=== PATIENT | male | born 1935 | race Caucasian/White ===

== ENCOUNTER 2024-05-10 11:25 | Emergency (ER) | payer OTHER, SELFPAY ==
[2024-05-10 11:29] VITALS: BP 135/78
--- NOTE | 2024-05-10 12:03 | ED.GENMED ---
History of Present Illness
<Trudy Tipton PA-C - Last Filed: 05/10/24 22:05>
General
Chief Complaint: Nose Bleed
Source: patient
Exam Limitations: none
Time Seen by Provider: 05/10/24 12:02
Nursing documentation reviewed up to this point in time: agreed with
History of Present Illness
History of Present Illness:
88-year-old male with past medical history of metabolic syndrome, moderate aortic stenosis presents emergency department today with concerns of a persistent nosebleed. Patient states that he has a history of nosebleeds. He has not take a blood
thinner. Patient states that last night, he started to have nose bleeding from his left nare but then it became bilateral. Patient reports eventually stopped and then he went to sleep but then this morning he instilled some saline spray into the
nostril and started bleeding again. Patient states that a large clot passed from his nose. Patient also notes dizziness which started last night. He states that he has chronic episodes of dizziness with aortic stenosis he notes that the dizziness
he has now is different. He notes that when he stands up and walks around, he will get a sensation of vertigo. He also has left-sided posterior neck pain. He has not taken any blood thinners. He denies any syncopal episodes.
Past History
<Trudy Tipton PA-C - Last Filed: 05/10/24 22:05>
Past History
ED Past Medical History: Other (Macular degeneration)
ED Past Surgical History: Orthopedic
Social History
Tobacco: Non-smoker
Alcohol: None
Drug: None
Review of Systems
<Trudy Tipton PA-C - Last Filed: 05/10/24 22:05>
Review of Systems
All Other Systems: ROS reviewed and negative except as documented in HPI and ROS
Phy Exam
<Trudy Tipton PA-C - Last Filed: 05/10/24 22:05>
Physical Exam
Physical Exam:
General: Patient is well appearing and in no acute distress; non-toxic
Skin: Warm and dry, no rashes or lesions
Head: Normocephalic, atraumatic
Eyes: Sclera non-icteric. EOMs intact.
Nose: No active bleeding or abrasion within either nare. No septal hematoma.
Cardiac: Regular rate and rhythm, no murmurs
Peripheral Vascular: No lower extremity swelling or edema
Pulm: Normal respiratory effort, no wheezes, rales, or rhonchi
Neuro: CN II-XII intact, no focal neurologic deficits.
Psychiatric: Appropriate mood and affect.
Course
Ainsleylt;Trudy Tipton PA-C - Last Filed: 05/10/24 22:05>
Orders/Labs/Results
Orders:
Orders
05/10/24 12:44
Electrocardiogram (*1) Urgent
Reason for Study: Chest Pain
EKG- Treatment ONCE
05/10/24 12:58
CT Head & Neck Angio W/wo IV Urgent
Reason For Exam: left neck pain, vertigo, dysmetria
05/10/24 13:05
Complete Blood Count/With Diff Urgent
Comprehensive Metabolic Panel Urgent
05/10/24 15:26
Oxymetazoline HCl [Afrin Nasal [place]] See Dose Instructions NASAL BID ONE
05/10/24 16:15
Electrocardiogram (*1) Urgent
Reason for Study: Chest Pain
EKG- Treatment ONCE
Abnormal Lab Results
05/10/24
13:05
RBC 3.94 L 10^6/uL
(4.70-6.10)
Hct 37.4 L %
(39.0-52.0)
MCV 94.9 H fL
(80.0-94.0)
MCH 33.2 H pg
(27.0-31.0)
Absolute Lymphs (auto) 1.1 L 10^3/uL
(1.2-3.4)
Lymphocytes % 17.8 L %
(20.5-51.1)
Glucose 198 H mg/dl
(70-99)
05/10/24 13:05
05/10/24 13:05
Vital Signs
Initial and Last Documented VS:
Initial Vital Signs
Temp Pulse Resp BP Pulse Ox
98.1 F 69 16 135/78 98
05/10/24 11:29 05/10/24 11:29 05/10/24 11:29 05/10/24 11:29 05/10/24 11:29
Last Documented Vital Signs
Temp Pulse Resp BP Pulse Ox
98.1 F 79 20 121/62 99
05/10/24 11:29 05/10/24 17:40 05/10/24 17:40 05/10/24 17:40 05/10/24 17:40
<Marcel Lenz, DO - Last Filed: 05/10/24 14:21>
Orders/Labs/Results
Orders:
Orders
05/10/24 12:44
Electrocardiogram (*1) Urgent
Reason for Study: Chest Pain
EKG- Treatment ONCE
05/10/24 12:58
CT Head & Neck Angio W/wo IV Urgent
Reason For Exam: left neck pain, vertigo, dysmetria
05/10/24 13:05
Complete Blood Count/With Diff Urgent
Comprehensive Metabolic Panel Urgent
05/10/24 15:26
Oxymetazoline HCl [Afrin Nasal [place]] See Dose Instructions NASAL BID ONE
05/10/24 16:15
Electrocardiogram (*1) Urgent
Reason for Study: Chest Pain
EKG- Treatment ONCE
Abnormal Lab Results
05/10/24
13:05
RBC 3.94 L 10^6/uL
(4.70-6.10)
Hct 37.4 L %
(39.0-52.0)
MCV 94.9 H fL
(80.0-94.0)
MCH 33.2 H pg
(27.0-31.0)
Absolute Lymphs (auto) 1.1 L 10^3/uL
(1.2-3.4)
Lymphocytes % 17.8 L %
(20.5-51.1)
Glucose 198 H mg/dl
(70-99)
05/10/24 13:05
05/10/24 13:05
Vital Signs
Initial and Last Documented VS:
Initial Vital Signs
Temp Pulse Resp BP Pulse Ox
98.1 F 69 16 135/78 98
05/10/24 11:29 05/10/24 11:29 05/10/24 11:29 05/10/24 11:29 05/10/24 11:29
Last Documented Vital Signs
Temp Pulse Resp BP Pulse Ox
98.1 F 79 20 121/62 99
05/10/24 11:29 05/10/24 17:40 05/10/24 17:40 05/10/24 17:40 05/10/24 17:40
Ainsleylt;Trudy Tipton PA-C - Last Filed: 05/10/24 22:05>
MDM/Problems Addressed
Differential Diagnosis Includes:
acute blood loss anemia, acute anterior epistaxis, moderate aortic stenosis, posterior circulation stroke
MDM/Problems Addressed:
88-year-old male with a past medical history of moderate aortic stenosis presents emergency department today with concerns of a nosebleed and dizziness. He also has left-sided neck pain. His symptoms usually come on with walking. He states that
he does have chronic dizziness with aortic stenosis however states that this time it feels like vertigo. On exam, he does have slightly abnormal finger-nose however this may be secondary to decreased visual acuity. Considering his symptoms patient
was sent for CTA of the head and neck which was negative for any cervical dissection. Patient is EKG shows no ischemic changes no heart block. Patient was ambulated throughout the emergency department and did not have recurrence of his symptoms.
I do believe patient safe for discharge, case was reviewed with patient's cardiology practice and his case was forwarded to the office that patient have seen her outpatient follow-up. Patient's nasal exam is unremarkable, no septal hematoma, no
active bleeding. Patient was given 2 doses of Afrin intranasally. Patient stable for discharge
Chronic conditions affecting care:
Metabolic syndrome, aortic stenosis
<Trudy Tipton PA-C - Last Filed: 05/10/24 22:05>
*Pulse Oximetry
Patient hypoxic: no
*Critical Care Note
Total Time (30-74mins, 75-104mins- exclusive of procedures): Not Applicable
Data Reviewed
Review of Other/Old Records Reveals: Records and Discharge Summary (No discharge summaries in [facility].)
Source: patient and records
ED Attending Note
<Trudy Tipton PA-C - Last Filed: 05/10/24 22:05>
-
Portions of this chart may have been created with voice recognition software.� Occasional wrong word or��sound alike� substitutions may have occurred due to the inherent limitations of voice recognition software.
<Marcel Lenz DO - Last Filed: 05/10/24 14:21>
ED Attending Note
Patient seen and examined by attending physician: Yes
I performed the substantive portion of visit, reviewed & personally made and approve the management plan that is documented in note by myself or DEBBIE.: Yes
ED Attending Note:
I evaluated the patient at bedside. Patient's main reason for visit is nosebleed. He was primarily concerned of the nosebleed and would not have come in for any other reason. However he does report some dizziness which may be slightly acutely
worse on top of a chronic issue. His hemoglobin level is normal. His finger-nose testing is unremarkable.
Discharge Plan
Departure
Patient Disposition: Home (Routine Discharge)
Date of Disposition: 05/10/24
Time of Disposition: 17:24
Patient with high blood pressure during this ER visit?: Yes
Condition: Good
Discharge Problem:
Bleeding nose, Dizziness
Instructions: Nosebleeds (DC), Dizziness in adults - ED discharge instructions, BLOOD PRESSURE
Prescriptions:
No Action
ascorbic acid (vitamin C) [Vitamin C] 500 MG tablet
500 mg PO MOWEFR
vit C,U-Vi-kzene-lutein-zeaxan [PreserVision AREDS-2] 1 EACH capsule
1 tab PO BID@0800,1700
cholecalciferol (vitamin D3) 2,000 UNITS tablet
2,000 unit PO DAILY
Referrals:
Naun Pierre MD [Active] - Call in 1-3 days for appt
Gunjan Maya DO [Family Provider] -
Activity Restrictions/Additional Instructions:
I sent a message to [facility] cardiology. You should receive a call on Sunday to set this your follow-up appointment, she did not receive a call, please call the attached number to schedule an appointment for follow-up.
Your CTA scan of the neck and the head were negative.
Please return emergency department if you develop an acute worsening of your symptoms, chest pain, shortness of breath, return of your dizziness, difficulty ambulating, syncopal episodes, weakness in one-sided body versus other, or any other signs
or symptoms concerning to you
Interventions
Interventions:
*Risk Screen - Suicide Last Done: 05/10/24 11:29
*General Assessment Last Done: 05/10/24 13:30
*Neglect/Abuse Screening Last Done: 05/10/24 11:29
*ED COVID-19 Vaccine History Last Done: 05/10/24 13:30
*Nursing Disposition Last Done: 05/10/24 17:40
ED-EENT Assessment Last Done: 05/10/24 13:30
Discharge Date and Time
Discharge Date/Time: 05/10/24 17:41
Print Language: VIETNAMESE
[2024-05-10 12:45] VITALS: BP 129/87
[2024-05-10 13:20] LABS: % Basophils 0.5 % (0-2); % Eosinophils 2.3 % (0-6); % Immature Granulocytes 0.2 % (0-0.5); % Lymphocytes 17.8 % (20.5-51.1); % Monocytes 8.2 % (1.7-9.3); Absolute Eosinophils 0.1 10^3/uL (0-0.7); Absolute Lymphocytes 1.1 10^3/uL (1.2-3.4); Absolute Monocytes 0.5 10^3/uL (0.1-0.6); Absolute Neutrophils 4.4 10^3/uL (1.4-6.5); Hematocrit 37.4 % (39.0-52.0); Hemoglobin 13.1 g/dL (13.0-18.0); Mean Corpuscular Hgb 33.2 pg (27.0-31.0); Mean Corpuscular Volume 94.9 fL (80.0-94.0); Mean Platelet Volume 9.4 fL (7.4-10.4); Nucleated Red Blood Cells % 0 % (-); Platelet Count 201 10^3/uL (130-400); Red Blood Cell Count 3.94 10^6/uL (4.70-6.10); Red Cell Dist. Width 12.4 % (11.5-14.5); White Blood Cell Count 6.1 10^3/uL (4.8-10.8)
[2024-05-10 13:33] LABS: ALT (SGPT) 12 U/L (0-50); AST (SGOT) 17 U/L (17-59); Alkaline Phosphatase 109 U/L (38-126); Blood Urea Nitrogen 15 mg/dl (9-20); Calcium 9.1 mg/dl (8.4-10.2); Carbon Dioxide 27 mmol/L (22-30); Chloride 102 mmol/L (98-107); Glucose 198 mg/dl (70-99); Potassium 4.6 mmol/L (3.5-5.1); Sodium 136 mmol/L (135-145); Total Bilirubin 0.5 mg/dl (0.2-1.3); Total Protein 6.6 g/dl (6.3-8.2); eGFR > 60.00
[2024-05-10] MEDS: AFRIN NASAL SPRAY 2 SPRAYS NASAL (16:12)
[2024-05-10 16:42] VITALS: BP 138/63
[2024-05-10 17:40] VITALS: BP 121/62
== END 2024-05-10 17:41 | disposition home or self-care (01) ==
LOC: EMR 11:25
PROVIDERS: Physician Assistant; EMERGENCY PHYSICIAN Emergency Medicine; FAMILY PHYSICIAN Internal Medicine
DX: R04.0 Epistaxis (principal); R42 Dizziness and giddiness; I35.0 Nonrheumatic aortic (valve) stenosis; E88.810 Metabolic syndrome
CPT/HCPCS: 99284; 70496; 70498; 80053; 85025; 93005; Q9967

== ENCOUNTER 2024-06-29 16:08 | Inpatient (IN) | payer OTHER, SELFPAY ==
--- NOTE | 2024-06-28 10:59 | ED.CVA ---
History of Present Illness
General
Chief Complaint: CVA/TIA Symptoms
Time Seen by Provider: 06/28/24 10:53
Onset of Stroke Symptoms
Onset of symptoms known: No
Time pt last seen normal is known: No
History of Present Illness
History of Present Illness:
TIME OF INITIAL ENCOUNTER: 10:55 AM
HPI: The patient awoke with slurred speech and was noted to have facial droop. Symptoms were noted at 9:15 AM today upon awakening. He went to bed at some point before midnight last night. He is not on anticoagulation. He was here 2 months ago
with a nosebleed.
EXAM:
GENERAL: Well appearing in no distress
HEENT: Moist oral mucosa
CARDIOVASCULAR: 2 out of 6 systolic murmur heard in the upper sternal borders, normal heart rate, regular rhythm, No chest wall tenderness
PULMONARY: No respiratory distress, breath sounds are clear and equal
ABDOMEN: Soft with no peritoneal signs, no tenderness
NEUROLOGIC: Mild dysarthria and mild aphasia, no motor deficits to the face or any extremity, no sensory deficits, finger-nose is intact bilaterally
PSYCHIATRIC: Appropriate mental status, normal insight and judgement
EXTREMITIES: Nontender, no edema, moves all extremities equally
SKIN: No rash, no lesions
NUMBER AND COMPLEXITY OF PROBLEMS ADDRESSED AT THE ENCOUNTER
� Chronic conditions affecting care: Metabolic syndrome, cataracts, aortic stenosis
� Acute Exacerbation and/or Progression of Chronic Illness: This is an acute problem
� Differential Diagnosis includes: TIA/CVA, intracranial hemorrhage
AMOUNT AND/OR COMPLEXITY OF DATA TO BE REVIEWED AND ANALYZED
� I performed an independent evaluation of and my interpretation is:
EKG: Sinus 54, right bundle branch block
CT: CT head shows no acute abnormality; CTA unremarkable
X-rays:
Laboratory Studies: CBC and chemistries unremarkable
Other:
� Review of other/old records: The patient was seen here 6 weeks ago with nosebleed.
� Clinical information was obtained by an independent historian: I spoke to EMS upon arrival
� Prescriptions/Medications Considered but not given:
� Further testing considered but not performed:
RISK OF COMPLICATIONS AND/OR MORBIDITY OR MORTALITY OF PATIENT MANAGEMENT
� Social determinants of health affecting care: Resides in [place]
� Discussion with other providers: The patient was seen by Dr. Alvarez in the emergency department upon patient arrival�recommends against TNK; Dr. Foy for admission at 11:38 AM.
� Escalation of care including admission/observation vs risk of discharge considered: For me, stroke scale is 2 based on mild dysarthria and mild aphasia. Otherwise no motor deficits.
ANY OTHER UPDATES:
Past History
Past History
ED Past Medical History: Other (Macular degeneration)
ED Past Surgical History: Orthopedic
Social History
Tobacco: Non-smoker
Alcohol: None
Drug: None
Phy Exam
Physical Exam
Physical Exam:
See HPI
Course
Orders/Labs/Results
Orders:
Orders
06/28/24 10:54
Electrocardiogram (*1) Urgent
Reason for Study: TIA/Stroke
CT HEAD STROKE ALERT W/o Cont Urgent
Comment:
Reason For Exam: change in mental status
CT HEAD/NECK ANG STROKE ALERT Urgent
Comment:
Reason For Exam: change in mental status
EKG- Treatment ONCE
06/28/24 11:07
Complete Blood Count/With Diff Urgent
Comprehensive Metabolic Panel Urgent
06/28/24 11:21
Aspirin Chewable [Low Strength Aspirin] 324 mg PO NOW STA
Clopidogrel Bisulfate [Plavix] 300 mg PO NOW STA
06/28/24 11:50
Speech Screening from [place] Routine
06/28/24 12:23
Admit/Transfer Patient As Directed
Co-Sign Provider:
Level of Care: Observation services
Assign to:: Telemetry
Physician / Group: hospitalist-Nikos
Diagnosis: Tia/Cva
Reason for Telemetry: CVA/TIA
Date to Stop Telemetry: 07/01/24
Time to Stop Telemetry: 11:00
PRN Pain Medication Management As Directed
May give lesser potent ordered pain med per pt: Yes
preference::
Protocol:: Medication orders for pain may be administered in a
manner that supports deferring to patient preference
when the pt is:
- Requesting an ordered lesser potent pain medication.
Least to most potent pain medications are defined
as: acetaminophen < NSAID < tramadol < opioids
(morphine, oxycodone, hydromorphone).
- Requesting a lesser dose of the same medication IF
ORDERED.
- Requesting a less intrusive route of administration
if both routes are prescribed by the provider (PO <
IV).
06/28/24 12:24
Code Status As Directed
Resuscitation Status: Full Code
06/28/24 13:31
Acetaminophen [Tylenol/Feverall] 650 mg RECTAL Q4HPRN PRN
Acetaminophen [Tylenol] 650 mg PO Q4HPRN PRN
06/28/24 13:31
Echo 2D MMode Color/Doppler Routine
Reason for Study: stroke/TIA
Comment: sees Dr. Jeff Stubbs
Case Management Consult ONCE
Case Management Consult: Discharge Planning
Comment: stroke/tia
DIETARY CONSULT Routine
Reason for Consult: stroke/TIA
NEUROLOGY CONSULT Urgent
Consulting Provider: Tyrell Alvarez
Was physician already notified: Yes
Baseball Inspector Urgent
MR Brain Without Contrast Routine
Comment:
Reason For Exam: stroke/TIA
Recent pill cam endoscopy?: No
Activity As Directed
Activity Level: Out of Bed-Early Mobility
NIH Stroke Scale As Directed
Directions: Per protocol
Comment: every shift and with any change in condition or mental status
Neurological Checks As Directed
Frequency: q4h
Additional Instructions:: q4h x 24h upon admission to the floor, then qshift & with any change in condition
and mental status
Patient Education As Directed
Type: Stroke education packet
Comment: provide to patient and family
Pneumatic Compression Sleeves As Directed
Type: Knee high
Swallow Screening CVA/TIA ONLY As Directed
Comment: NPO until swallowing screening completed
If patient FAILS swallow screening:: NPO, Speech Therapy consult, Aspiration Precautions
If patient PASSES swallow screening, diet:: Regular
Above diet order entered?: Yes- passed screening
Vital Signs As Directed
Frequency: Per unit guidelines
Ot Eval And Treat Routine
Pt Eval And Treat Routine
Activity Level: Out of Bed-Early Mobility
Speech Therapy Eval & Treat Routine
DX Deep Vein Thrombosis Video Routine
06/28/24 18:00
Rosuvastatin Calcium [Crestor] 20 mg PO QPM
06/29/24 06:00
Basic Metabolic Panel IN AM
Cardiovascular Evaluation IN AM
Complete Blood Count/No Diff IN AM
Magnesium IN AM
06/29/24 08:00
Aspirin Chewable [Low Strength Aspirin] 81 mg PO DAILY
Aspirin Low Dose EC [Aspir Low (Enteric Coated)] 81 mg PO DAILY
Clopidogrel Bisulfate [Plavix] 75 mg PO DAILY
Clopidogrel Bisulfate [Plavix] 75 mg PO DAILY
07/01/24 11:00
DC Protocol for Telemetry ONCE
Abnormal Lab Results
06/28/24
11:07
RBC 4.24 L 10^6/uL
(4.70-6.10)
MCH 33.3 H pg
(27.0-31.0)
Glucose 150 H mg/dl
(70-99)
Alkaline Phosphatase 132 H U/L
(38-126)
03/15/25 11:07
06/28/24 11:07
Vital Signs
Initial and Last Documented VS:
Initial Vital Signs
Pulse Ox
98
06/28/24 11:05
Last Documented Vital Signs
Temp Pulse Resp BP Pulse Ox
36.4 C 52 18 135/71 97
06/28/24 15:14 06/28/24 15:14 06/28/24 15:14 06/28/24 15:14 06/28/24 15:14
*Critical Care Note
Total Time (30-74mins, 75-104mins- exclusive of procedures): Not Applicable
ED Attending Note
-
Portions of this chart may have been created with voice recognition software.� Occasional wrong word or��sound alike� substitutions may have occurred due to the inherent limitations of voice recognition software.
Discharge Plan
Departure
Patient Disposition: Admit
Date of Disposition: 06/28/24
Time of Disposition: 11:37
Presentation/result/management discussed w/ accepting MD/DO: Hospitalist
Discharge Problem:
Acute cerebrovascular accident (CVA)
Interventions
Interventions:
*Risk Screen - Suicide Last Done: 06/28/24 13:50
*General Assessment Last Done: 06/28/24 11:05
*Neglect/Abuse Screening Last Done: 06/28/24 11:05
*ED- Fall Risk Assessment Last Done: 06/28/24 11:05
*ED COVID-19 Vaccine History Last Done: 06/28/24 11:05
ED- Pulmonary Assessment Last Done: 06/28/24 11:05
ED- Neurological Assessment Last Done: 06/28/24 11:00
ED- Cardiac Assessment Last Done: 06/28/24 11:05
ED Swallowing Screen Last Done: 06/28/24 11:40
[2024-06-28 11:14] LABS: % Basophils 0.5 % (0-2); % Eosinophils 2.7 % (0-6); % Immature Granulocytes 0.2 % (0-0.5); % Lymphocytes 24.3 % (20.5-51.1); % Monocytes 8.5 % (1.7-9.3); % Neutrophils 63.8 % (42.2-75.2); Absolute Eosinophils 0.2 10^3/uL (0-0.7); Absolute Lymphocytes 1.4 10^3/uL (1.2-3.4); Absolute Monocytes 0.5 10^3/uL (0.1-0.6); Absolute Neutrophils 3.6 10^3/uL (1.4-6.5); Hematocrit 39.4 % (39.0-52.0); Hemoglobin 14.1 g/dL (13.0-18.0); Mean Corp Hgb Conc. 35.8 g/dL (33.0-37.0); Mean Corpuscular Hgb 33.3 pg (27.0-31.0); Mean Corpuscular Volume 92.9 fL (80.0-94.0); Mean Platelet Volume 9.2 fL (7.4-10.4); Nucleated Red Blood Cells % 0 % (-); Platelet Count 210 10^3/uL (130-400); Red Blood Cell Count 4.24 10^6/uL (4.70-6.10); Red Cell Dist. Width 12.4 % (11.5-14.5); White Blood Cell Count 5.6 10^3/uL (4.8-10.8)
[2024-06-28 11:16] VITALS: BMI 25.7
[2024-06-28 11:18] VITALS: BP 136/66
--- NOTE | 2024-06-28 11:22 | CON.NEURO ---
Neuro Assessment/Plan
Assessment
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
symptoms mild, not disabling, out of TNK window as LKN was last night
Plan
Load ASA 324 + ASA 81 daily
Load Plavix 300 + Plavix 75 for 21 days
Increase rosuvastatin 20 mg
PT/OT
Consultation
Order
Date of Consultation: 06/28/24
Requesting Provider: Marcel Lenz
Reason for Consult: Stroke alert
Subjective/Objective
Subjective Data
Date of Service: June 28, 2024
He is an 88 year old man presenting as stroke alert. went to bed last night in usual state of health, woke up this morning 9:15 am with slurred speech. EMS called, noted facial droop. no anticoagulants. recently started rosuvastatin 10 mg
Objective Data
Vital Signs
Temp Pulse Resp Pulse Ox
36.7 C 62 18 97
06/28/24 11:15 06/28/24 11:15 06/28/24 11:15 06/28/24 11:15
Lab Results
06/28/24 11:07
Patient Allergies
diphenhydramine [From Benadryl] Allergy (Verified 04/22/20 07:51)
Hives
CVA Assessment
NIH Stroke Score
Level of Consciousness: 0 - Alert
LOC Questions: 0-Answers both correctly
LOC Commands: 0-Performs both correctly
Best Horizontal Gaze: 0-Normal
Visual Cervantes: 0=Normal, no visual loss
Facial Palsy: 1=Minor paralysis
Motor - Right Arm: 0=No drift 10 seconds
Motor - Left Arm: 1=Drift < 10 seconds
Motor - Right Le-No drift 5 seconds
Motor - Left Le-No drift 5 seconds
Limb Ataxia: 0-Absent
Sensation: 0-Normal
Best Language: 0-No aphasia
Dysarthria: 1-Mild slurring
Extinction and Inattention: 0-No abnormality
Total Score:: 3
Tenecteplase Contraindications
Reasons for NON-Tx with Thrombolytics ABSOLUTE Exclusions: Time-out of window
Physical Exam
-
AAOx3, speech mildly dysarthric fully understandable. language intact
blurry vision from macular degeneration; VFF intact; EOMI, loss of smooth pursuit
L NL flattening
trace LUE drift,
sensation intact to touch/pin
Medications
-
Home Medications
�Medication �Instructions �Recorded
ascorbic acid (vitamin C) 500 mg 500 mg PO MOWEFR 04/19/17
tablet (Vitamin C)
cholecalciferol (vitamin D3) 50 2,000 unit PO DAILY 04/19/17
mcg (2,000 unit) tablet
vit C 250 mg-vit E 90 mg-zinc 40 1 tab PO BID@0800,1700 04/19/17
mg-copper 1 [id number]
capsule (PreserVision AREDS-2)
[2024-06-28 11:34] LABS: ALT (SGPT) 13 U/L (0-50); AST (SGOT) 18 U/L (17-59); Albumin 4.6 g/dl (3.5-5.0); Alkaline Phosphatase 132 U/L (38-126); Blood Urea Nitrogen 13 mg/dl (9-20); Calcium 9.9 mg/dl (8.4-10.2); Carbon Dioxide 25 mmol/L (22-30); Chloride 103 mmol/L (98-107); Estimated Creatinine Clearance 66 ml/min; Glucose 150 mg/dl (70-99); Potassium 4.7 mmol/L (3.5-5.1); Sodium 139 mmol/L (135-145); Total Bilirubin 1.2 mg/dl (0.2-1.3); Total Protein 7.2 g/dl (6.3-8.2); eGFR > 60.00
[2024-06-28] MEDS: PLAVIX 300 MG PO (11:51)
[2024-06-28] MEDS: LOW STRENGTH ASPIRIN 324 MG PO (11:51)
[2024-06-28 12:00] VITALS: BP 158/70
--- NOTE | 2024-06-28 12:28 | HPS.HSE ---
Family Physician
-
Family Physician: Gunjan Maya
Chief Complaint
-
Trouble talking
History of Present Illness
Patient is an 88-year-old male who awoke this morning and was 'gi on his feet' and had trouble brushing his teeth. He stated that he just did not 'feel right'. He then noticed he was not talking as he usually does. He stated he woke up at 9:15
in the morning and he noticed all of the symptoms at approximately 925 to 9:30 in the morning. He denied any motor issues such as dragging in arm or leg. He denied headaches or previous episodes. He does state that he has been listing to the left
for the last couple months. He is out of the window for TNK and was brought in as a stroke alert and seen by neurology at the bedside. Patient is to be brought in as observation for further workup.
Medical History
Past Medical History
Past Medical History: Reports Other
Additional Past Medical History:
Aortic stenosis last echocardiogram was November 2023
Hyperlipidemia
Macular degeneration
Past Surgical History: Reports Other
Additional Past Surgical History:
Not pertinent
Social History
Tobacco: Non-smoker
Alcohol: Occasional (Last drink was June 19)
Drug: None
Family History
Family History: Not pertinent
Allergies / Home Medications
Allergies reflects when Allergies were last updated in [employer].
Home Medications with original date entered in [employer]
Allergy/Medication List:
Allergies
Allergy/AdvReac Type Severity Reaction Status Date / Time
diphenhydramine Allergy Hives Verified 06/28/24 11:23
[From Benadryl]
Home Medications
ascorbic acid (vitamin C) 500 mg tablet (Vitamin C) 500 mg PO MOWEFR 04/19/17
cholecalciferol (vitamin D3) 50 mcg (2,000 unit) tablet 2,000 unit PO DAILY 04/19/17
vit C 250 mg-vit E 90 mg-zinc 40 mg-copper 1 [id number] capsule (PreserVision AREDS-2) 1 tab PO BID@0800,1700 04/19/17
These medications are not yet confirmed. Although he did tell me that he takes vitamin C, vitamin D3, and PreserVision.
Review of Systems
-
History Source: Patient
Constitutional: Reports No Symptoms
EENT: Reports No Symptoms
Respiratory: Reports No Symptoms
Cardiac: Reports No Symptoms
Abdomen/GI: Reports Constipated
: Reports No Symptoms
Musculoskeletal: Reports Other (Admits to stiff neck)
Neurological: Reports Other (Trouble getting words out--denies any issues with movement of arms or legs)
Endocrine: Reports No Symptoms
Psych: Reports No Symptoms
Physical Exam
Vital Signs
Vital Signs
Temp Pulse Resp BP Pulse Ox
98.0 F 59 19 136/66 97
06/28/24 11:15 06/28/24 11:18 06/28/24 11:18 06/28/24 11:18 06/28/24 11:18
Physical Exam
General: Well Developed, Well Nourished and No Apparent Distress
HEENT: NormoCephalic and Anicteric; No Oxygen
Respiratory: Clear; No Rhonchi
Cardiac: S1/S2, Regular Rhythm and Murmur (2/6 systolic ejection murmur)
GI: Soft, Non Tender, Non Distended and Normal Bowel Sounds
Musculoskeletal: No Clubbing, No Cyanosis and No Edema
Neuro: Awake, Alert, Cranial Nerves Intact (Macular degeneration inhibits full visual field exam), Slurred Speech (Slurred speech, trouble getting words out) and Facial Droop (Left facial droop); No No Motor Deficits (Right upper extremity weakness
compared to left)
Laboratory Results
-
06/28/24 11:07
06/28/24 11:07
Laboratory Results
Total Bilirubin 1.2 mg/dl (0.2-1.3) 06/28/24 11:07
AST 18 U/L (17-59) 06/28/24 11:07
ALT 13 U/L (0-50) 06/28/24 11:07
Alkaline Phosphatase 132 U/L (38-126) H 06/28/24 11:07
Impression/Plan
-
Patient is an 88-year-old male
Acute CVA/TIA--patient was brought in as a stroke alert--head CT and CTA of the head and neck are both negative and within normal limits--OBSERVATION--consult neurology, PT/OT/speech, check echocardiogram, check lipids--continue aspirin/Plavix for
21 days followed by aspirin alone most likely--Crestor started
Hyperlipidemia--Crestor started this admission
Macular degeneration--continue PreserVision
DVT prophylaxis--sequential compression device
CODE STATUS--full code
[2024-06-28 15:14] VITALS: BP 135/71; BMI 26.1
--- NOTE | 2024-06-28 15:20 | PTOTSP ---
Speech Therapy Evaluation:
Pt presents with grossly functional oral stage and suspected mild pharyngoesophageal dysphagia given reported instance of liquid going down the wrong way in the ED and occasional belching with liquid ingestion. Pt passed ED swallow screen, however
unable to successfully complete during evaluation d/t interrupted drinking. No overt s/sx of aspiration during evaluation, however pt remains at increased risk for aspiration given suspected acute CVA/TIA. WBC WNL. No chest imaging completed thus
far.
Recommend:
1. Initiate oral diet of IDDSI Level 7 (regular solids) and thin liquids
2. Medications as tolerated
3. General aspiration and reflux precautions
4. SPV with PO intake s/p diet initiation
5. PLASTERER MAINTENANCE to follow for swallow, likely brief and determine if pt would benefit from comprehensive language evaluation.
--- NOTE | 2024-06-28 15:48 | PTCARENOTE ---
Addendum entered by Irene Correa RN 06/28/24 15:48:
rec'd pt from ER. walked from stretcher to bed with assistance of one. Family at bedside. pt denies pain. NIH of 2 obtained by this RN. Pt was cleared by speech for regular diet with thin liquids. stroke education packet given to pt. oriented to
unit and call gutiérrez in reach.
Original Note:
recc'd
[2024-06-28] MEDS: CRESTOR 20 MG PO (17:50)
[2024-06-28 19:45] VITALS: BP 138/65
[2024-06-28 23:00] VITALS: BP 134/64
[2024-06-29] VITALS (8 sets, daily range): BP systolic 117–171; BP diastolic 60–78; PULSE 60; O2SAT 98
[2024-06-29 07:14] LABS: Hematocrit 36.9 % (39.0-52.0); Hemoglobin 12.9 g/dL (13.0-18.0); Mean Corpuscular Hgb 32.5 pg (27.0-31.0); Mean Corpuscular Volume 92.9 fL (80.0-94.0); Mean Platelet Volume 9.5 fL (7.4-10.4); Platelet Count 185 10^3/uL (130-400); Red Blood Cell Count 3.97 10^6/uL (4.70-6.10); Red Cell Dist. Width 12.4 % (11.5-14.5); White Blood Cell Count 6.1 10^3/uL (4.8-10.8)
[2024-06-29] MEDS: PLAVIX 75 MG PO (07:35)
[2024-06-29] MEDS: LOW STRENGTH ASPIRIN 81 MG PO (07:35)
[2024-06-29 07:47] LABS: Blood Urea Nitrogen 15 mg/dl (9-20); Calcium 9.4 mg/dl (8.4-10.2); Carbon Dioxide 23 mmol/L (22-30); Chloride 103 mmol/L (98-107); Estimated Creatinine Clearance 66 ml/min; Glucose 134 mg/dl (70-99); HDL Cholesterol 57 mg/dl; LDL Cholesterol, Calculated 30 mg/dl; Magnesium 2.1 mg/dl (1.6-2.3); Potassium 4.4 mmol/L (3.5-5.1); Sodium 139 mmol/L (135-145); Total Cholesterol 102 mg/dl (50-199); Triglyceride 77 mg/dl (10-149); Very Low Density Lipoprotein 15 mg/dl (0-30); eGFR > 60.00
--- NOTE | 2024-06-29 10:03 | CM ---
CM reveiwed chart. Met with pt at bedside. Explained role and discussed anticipated dc plan/options. Pt states he lives alone in an apartment at
[facility] however typically spends most of this time w/his GF in her [place] apartment at [facility]. Pt stated he is feeling somewhat better today however does notice a change in his speech and L sided facial droop. Pt is not interested in SNF,
he prefers to return home to his apartment, with whatever DME is rec'd and HC/OP services. He expressed a keen interest in PHARMAC[facility]PRENTICE. Pt will be arranging his own transport [place]. ECHO currently pending.
Pt aware regular floor CM/SW covering will f/u prior to dc.
Son- primary contact
Girlfriend: Giuseppe Goins @ [phone] (2nd contact)
[facility] @ [phone]
IMM signed on admit.
--- NOTE | 2024-06-29 15:47 | W.PN.HOSP.TC ---
Today's Communication/Plan
-
await ECHO
Assessment / Plan
Assessment / Plan
pt is an 88 year old male
Acute CVA/TIA--head CT and CTA of the head and neck are both negative and within normal limits--apprec neurology, PT/OT/speech, await echocardiogram, lipids show Tchol 102, LDL 30--continue aspirin/Plavix for 21 days followed by aspirin
alone--Crestor started
Hx of aortic stenosis--ECHO pending--sees Dr. Jeff Stubbs
Hyperlipidemia--Crestor started this admission
Macular degeneration--continue PreserVision
DVT prophylaxis--sequential compression device
CODE STATUS--full code
Anticipated Discharge: 24 - 48 hours
Subjective/Interval History
-
Date of Service: June 29, 2024
pt frustrated with speech
Objective Data
-
Labs:
Laboratory Results
06/29/24
06:52
WBC 6.1
Hgb 12.9 L
Hct 36.9 L
Plt Count 185
Sodium 139
Potassium 4.4
Chloride 103
Carbon Dioxide 23
BUN 15
Creatinine 0.8
Glucose 134 H
Calcium 9.4
Vital Signs:
max temp for 24 hours
06/29/24
03:00
Temp 97.8 F
Vital Signs
Temp Pulse Resp BP Pulse Ox
97.7 F 57 18 134/60 96
06/29/24 11:04 06/29/24 11:04 06/29/24 11:04 06/29/24 11:04 06/29/24 11:04
I&O
06/28/24 06/29/24 06/30/24
06:59 06:59 06:59
Intake Total 840 / 840
Balance 840 / 840
Review of Systems
-
All other systems: Reviewed and negative
Physical Exam
-
General: Well Developed, Well Nourished and No Apparent Distress
HEENT: Normocephalic and Atraumatic; Negative Oxygen
Respiratory: Clear to Auscultation; Negative Wheezes or Rhonchi
Cardiac: Regular Rhythm, S1/S2 and Murmur
GI: Soft, Nontender, Nondistended and Normal Bowel Sounds
Musculoskeletal: No Clubbing, No Cyanosis and No Edema
Skin: Warm
Neuro: Awake and Slurred Speech
Psych: Calm
[2024-06-29] MEDS: VITAMIN D3 (cholecalciferol) 50 MCG PO (17:00)
[2024-06-29] MEDS: VITAMIN C 500 MG PO (17:00)
[2024-06-29] MEDS: CRESTOR 20 MG PO (17:00)
--- NOTE | 2024-06-29 18:37 | W.PN.HOSP.TC ---
Today's Communication/Plan
-
Await echocardiogram
Assessment / Plan
Assessment / Plan
pt is an 88 year old male
Acute CVA/TIA--head CT and CTA of the head and neck are both negative and within normal limits, MRI positive for acute CVA in left guthrie radiata--apprec neurology, PT/OT/speech, await echocardiogram, lipids show Tchol 102, LDL 30--continue
aspirin/Plavix for 21 days followed by aspirin alone--Crestor started
Hx of aortic stenosis--ECHO pending--sees Dr. Jeff Stubbs
Hyperlipidemia--Crestor started this admission
Macular degeneration--continue PreserVision
DVT prophylaxis--sequential compression device
CODE STATUS--full code
Anticipated Discharge: Within 24 hours
Subjective/Interval History
-
Date of Service: June 29, 2024
pt frustrated with his speech
Objective Data
-
Labs:
Laboratory Results
06/29/24
06:52
WBC 6.1
Hgb 12.9 L
Hct 36.9 L
Plt Count 185
Sodium 139
Potassium 4.4
Chloride 103
Carbon Dioxide 23
BUN 15
Creatinine 0.8
Glucose 134 H
Calcium 9.4
Vital Signs:
Vital Signs
Temp Pulse Resp BP Pulse Ox
97.4 F 61 16 129/76 98
06/29/24 15:00 06/29/24 15:00 06/29/24 15:00 06/29/24 15:00 06/29/24 15:00
I&O
06/28/24 06/29/24 06/30/24
06:59 06:59 06:59
Intake Total 840 / 840 600 / 600
Balance 840 / 840 600 / 600
Review of Systems
-
All other systems: Reviewed and negative
Neuro: Reports Other (Frustrated with speech issues)
Physical Exam
-
General: Well Developed, Well Nourished and No Apparent Distress
HEENT: Normocephalic and Atraumatic
Respiratory: Clear to Auscultation; Negative Wheezes or Rhonchi
Cardiac: Regular Rhythm and S1/S2; Negative Murmur
GI: Soft, Nontender, Nondistended and Normal Bowel Sounds
Musculoskeletal: No Clubbing, No Cyanosis and No Edema
Neuro: Awake and Alert
[2024-06-29] MEDS: OCUVITE SOFTGEL 1 CAP PO (19:27)
[2024-06-30 03:21] VITALS: BP 132/83
[2024-06-30] MEDS: OCUVITE SOFTGEL 1 CAP PO (07:53)
[2024-06-30] MEDS: LOW STRENGTH ASPIRIN 81 MG PO (07:53)
[2024-06-30] MEDS: PLAVIX 75 MG PO (07:53)
[2024-06-30 08:00] VITALS: BP 126/67
[2024-06-30 10:22] LABS: Hematocrit 40.3 % (39.0-52.0); Mean Corp Hgb Conc. 34.7 g/dL (33.0-37.0); Mean Corpuscular Hgb 32.5 pg (27.0-31.0); Mean Corpuscular Volume 93.5 fL (80.0-94.0); Mean Platelet Volume 9.3 fL (7.4-10.4); Platelet Count 201 10^3/uL (130-400); Red Blood Cell Count 4.31 10^6/uL (4.70-6.10); Red Cell Dist. Width 12.5 % (11.5-14.5); White Blood Cell Count 6.6 10^3/uL (4.8-10.8)
--- NOTE | 2024-06-30 11:00 | W.PN.HOSP.TC ---
Today's Communication/Plan
-
OK for DC today
Assessment / Plan
Assessment / Plan
pt is an 88 year old male with hx HLD, macular degeneration presents to the ER with imbalance and difficulty brushing teeth found to have acute CVA
TTE
CONCLUSIONS
Normal left ventricular systolic function.
Left ventricular ejection fraction is 60-65%.
Mild aortic stenosis.Peak gradient 24mmHg/Mean gradient 13mmHg.
No prior study available for comparison.
No intracardiac mass or thrombus formation seen.
Indications:
stroke/TIA
Acute CVA/TIA
-head CT and CTA of the head and neck are both negative and within normal limits
-MRI positive for acute CVA in left guthrie radiata
-apprec neurology, PT/OT/speech
lipids show Tchol 102, LDL 30
-continue aspirin/Plavix for 21 days followed by aspirin alone - DC 18 more days Plavix
-Crestor started
Hx of aortic stenosis--mild
Hyperlipidemia--Crestor started this admission
Macular degeneration--continue PreserVision
DVT prophylaxis--sequential compression device
CODE STATUS--full code
Anticipated Discharge: Today
Subjective/Interval History
-
Date of Service: June 30, 2024
difficulty getting words out
feels ready to go home
Objective Data
-
Labs:
Laboratory Results
06/30/24
10:05
WBC 6.6
Hgb 14.0
Hct 40.3
Plt Count 201
Sodium Pending
Potassium Pending
Chloride Pending
Carbon Dioxide Pending
BUN Pending
Creatinine Pending
Glucose Pending
Calcium Pending
Vital Signs:
Vital Signs
Temp Pulse Resp BP Pulse Ox
97.6 F 57 14 126/67 95
06/30/24 08:00 06/30/24 08:00 06/30/24 08:00 06/30/24 08:00 06/30/24 08:41
I&O
06/29/24 06/30/24 07/01/24
06:59 06:59 06:59
Intake Total 840 / 840 600 / 600
Balance 840 / 840 600 / 600
Review of Systems
-
History Source: Patient
All other systems: Reviewed and negative
Physical Exam
-
General: Well Developed, Well Nourished and No Apparent Distress
HEENT: Normocephalic and Atraumatic
Respiratory: Clear to Auscultation; Negative Wheezes or Rhonchi
Cardiac: Regular Rhythm and S1/S2; Negative Murmur
GI: Soft, Nontender, Nondistended and Normal Bowel Sounds
Musculoskeletal: No Clubbing, No Cyanosis and No Edema
Neuro: Awake, Alert and Other (mild expressive aphasia; mild left facial droop)
Psych: Calm
Data Reviewed
-
Diagnostic Radiology: Report Reviewed by me
Labs: Labs Reviewed by me
--- NOTE | 2024-06-30 11:19 | W.DS.TRANS ---
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
-
Discharge Instructions:
Discharge Diagnosis/Procedures acute stroke, macular degeneration
Diet As tolerated,Low Cholesterol
Activity As tolerated,With Walker,No strenuous activity
Driving Restrictions not until cleared to do so
Bathing Restrictions None
Other Services PT,OT,ST
Instructions:
Stand-Alone Forms:
Changes to Home Medications: Yes
Discharge Medications:
DC Medications w/original date entered in [employer]
ascorbic acid (vitamin C) 500 mg tablet (Vitamin C) 500 mg PO Q48H Supplement 04/19/17
cholecalciferol (vitamin D3) 50 mcg (2,000 unit) tablet 2,000 unit PO Q48H Supplement 04/19/17
vit C 250 mg-vit E 90 mg-zinc 40 mg-copper 1 gg-zoszje-flmovb capsule (PreserVision AREDS-2) 1 tab PO BID Eye Condition 04/19/17
eucalyptus-peppermint oil in a nasal solution (Ponaris nasal solution) 1 applic intranasal DAILYPRN PRN dryness, nose bleed prevention 06/28/24
polyethylene glycol 3350 17 gram/dose oral powder (Miralax) 4 g PO DAILYPRN PRN constipation 06/28/24
psyllium husk 3.4 gram/5.4 gram oral powder (Metamucil) 1 tbsp PO DAILYPRN PRN constipation 06/28/24
aspirin 81 mg chewable tablet 81 mg PO DAILY #30 tabs 06/30/24
clopidogrel 75 mg tablet 75 mg PO DAILY #18 tabs 06/30/24
rosuvastatin 20 mg tablet 20 mg PO QPM #30 tabs 06/30/24
Home Medication Changes
Take Plavix 75mg daily x 18 more days
Take aspirin 81mg daily indefinitely
Your Crestor is increased from 10 to 20mg
Pending Results: No
[2024-06-30 11:20] VITALS: BP 141/71
[2024-06-30 11:20] LABS: Blood Urea Nitrogen 19 mg/dl (9-20); Calcium 9.4 mg/dl (8.4-10.2); Carbon Dioxide 23 mmol/L (22-30); Chloride 102 mmol/L (98-107); Estimated Creatinine Clearance 59 ml/min; Glucose 240 mg/dl (70-99); Potassium 4.1 mmol/L (3.5-5.1); Sodium 138 mmol/L (135-145); eGFR > 60.00
--- NOTE | 2024-06-30 11:53 | CM ---
Chart reviewed for d/c planning. [place] at [facility]. Patient is stable for d/c today w/ HH needs (PT/OT/ST). Poss recommendation of a RW, CM reached out to PT Lluvia to confirm RW needs. Hospitalist left script on chart.
CM spoke w/ patient bedside, agreeable to d/c today. Patient prefers [facility] for therapy services, referral placed in [facility]. Per patient, advised for CM to call his son who will arrange transport for him
CM spoke w/ patient's son, Marc, informing of d/c today. Per Marc, his or a family friend will transport patient home, will confirm w/ CM once finalized.
IMM verbally reviewed, copy provided to patient, copy placed on chart
Plan: Return to [facility] w/ HH
[2024-06-30 12:26] VITALS: BP 138/77; PULSE 68
--- NOTE | 2024-06-30 12:43 | W.DCSUMMARY ---
Discharge Summary
Discharge Data
Date of Admission: 06/29/24
Date of Discharge: 06/30/24
-
Pending Results: No
Hospital Course
Discharging Physician : Dr. Verito Conley
Disposition : Home with Home Health - PT/OT/ST
Primary care physician : Dr. Gunjan Maya
Principal Discharge diagnosis : acute ischemic stroke
Hospital Course :
Mr. Marc Moreira is a 88 yo man with hx HLD, macular degeneration presents to the ER with imbalance and difficulty brushing teeth. Triage VSS. Glucose 150. CT Head without acute event, CTA Head/Neck without significant stenosis. Patient was out
of TNK window. He was given aspirin and Plavix load in the ER, admitted to medicine. Monitored on telemetry without finding of afib. MRI performed which showed small acute infarct left guthrie radiata. He worked with PT/OT/ST and HH recommended,
walker provided at discharge. He is discharged to complete 21 days total aspirin/Plavix therapy followed by Aspirin 81mg PO QD indefinitely. 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 He will follow up closely with his PCP.
Time spent on discharge was 32 minutes.
Important imaging findings :
HEAD CT 06/28/24
IMPRESSION:
No acute intracranial abnormality noted.
HEAD/NECK CTA
FINDINGS/impression:
Stable.
No vascular thrombus or occlusion. No dissection. Mild calcified plaque involving the left distal common carotid artery and bulb without luminal compromise.
BRAIN MRI 06/29/24
IMPRESSION:
Small 1 cm acute infarct involving the left guthrie radiata adjacent to the posterior body left lateral ventricle. No associated mass effect.
TTE 06/30/24
CONCLUSIONS
Normal left ventricular systolic function.
Left ventricular ejection fraction is 60-65%.
Mild aortic stenosis.Peak gradient 24mmHg/Mean gradient 13mmHg.
No prior study available for comparison.
No intracardiac mass or thrombus formation seen.
Indications:
stroke/TIA
Procedure findings :
Discharge Plan
-
Patient Disposition: Home with Home Care
Discharge Diagnosis/Procedures: acute stroke, macular degeneration
Condition: Good
Diet: As tolerated and Low Cholesterol
Activity: As tolerated, With Walker and No strenuous activity
Driving Restrictions: not until cleared to do so
Bathing Restrictions: None
Other Services: PT, OT and ST
Referrals:
Gunjan Maya, DO [Family Provider] - in less than 1 week
Additional Discharge Medication Instructions: Take Plavix 75mg daily x 18 more days
Take aspirin 81mg daily indefinitely
Your Crestor is increased from 10 to 20mg
Prescriptions:
New
aspirin 81 mg Tablet,Chewable
81 mg PO DAILY Qty: 30 0RF
rosuvastatin 20 mg Tablet
20 mg PO QPM Qty: 30 0RF
clopidogrel 75 mg Tablet
75 mg PO DAILY Qty: 18 0RF
Continued
ascorbic acid (vitamin C) [Vitamin C] 500 MG tablet
500 mg PO Q48H
PreserVision AREDS-2 1 EACH capsule
1 tab PO BID
cholecalciferol (vitamin D3) 2,000 UNITS tablet
2,000 unit PO Q48H
Ponaris Solution
1 applic INTRANASAL DAILYPRN PRN (Reason: dryness, nose bleed prevention)
polyethylene glycol 3350 [Miralax] 17 gram/dose Powder
4 g PO DAILYPRN PRN (Reason: constipation)
Metamucil 3.4 gram/5.4 gram Powder
1 tbsp PO DAILYPRN PRN (Reason: constipation)
Discontinued
rosuvastatin 10 mg Tablet
10 mg PO DAILY
Discharge Orders:
Discharge Patient (As Directed); Ordered 06/30/24
Ordered By: Verito Conley
Discharge Date and Time
Print Language: DANISH
[2024-06-30] MEDS: PREVNAR 20 0.5 ML IM (12:54)
== END 2024-06-30 14:01 | disposition home health service (06) | DRG 66 ==
LOC: 4 WEST ACU 16:08
PROVIDERS: ADMITTING PHYSICIAN Internal Medicine; ATTENDING PHYSICIAN Student in an Organized Health Care Education/Training Program; CONSULT PHYSICIAN Psychiatry & Neurology Clinical Neurophysiology; EMERGENCY PHYSICIAN Emergency Medicine; FAMILY PHYSICIAN Internal Medicine
DX: I63.81 Other cerebral infarction due to occlusion or stenosis of small artery (principal); E78.5 Hyperlipidemia, unspecified; H35.30 Unspecified macular degeneration; I35.0 Nonrheumatic aortic (valve) stenosis; Z79.82 Long term (current) use of aspirin
CPT/HCPCS: 70450; 70496; 70498; 70551; 80048; 80053; 80061; 83735; 85025; 85027; 90677; 92610; 93005; 93306; 97116; 97162; 97166; 97530; 99285; G0009; Q9967

== ENCOUNTER → 2024-11-05 06:58 | Outpatient (REF) | payer OTHER, SELFPAY | LOC: HWRAD 06:58 | PROVIDERS: ATTENDING PHYSICIAN Specialist; FAMILY PHYSICIAN Internal Medicine | DX: Q61.02 Congenital multiple renal cysts (principal) | CPT/HCPCS: 76775 ==

== ENCOUNTER 2025-01-09 20:45 | Inpatient (IN) | payer OTHER, SELFPAY ==
[2025-01-09 12:01] VITALS: BP 121/68
[2025-01-09 12:17] LABS: Hematocrit 40.8 % (39.0-52.0); Hemoglobin 13.7 g/dL (13.0-18.0); Mean Corp Hgb Conc. 33.6 g/dL (33.0-37.0); Mean Corpuscular Volume 87.0 fL (80.0-94.0); Nucleated Red Blood Cells % 0 % (-); Platelet Count 312 10^3/uL (130-400); Red Cell Dist. Width 11.9 % (11.5-14.5)
[2025-01-09 12:32] LABS: ALT (SGPT) 31 U/L (0-50); AST (SGOT) 34 U/L (17-59); Albumin 4.0 g/dl (3.5-5.0); Alkaline Phosphatase 197 U/L (38-126); Blood Urea Nitrogen 16 mg/dl (9-20); Calcium 9.2 mg/dl (8.4-10.2); Carbon Dioxide 24 mmol/L (22-30); Chloride 100 mmol/L (98-107); Glucose 134 mg/dl (70-99); Lipase 135 U/L (23-300); Potassium 4.6 mmol/L (3.5-5.1); Sodium 134 mmol/L (135-145); Total Protein 7.4 g/dl (6.3-8.2); eGFR > 60.00
[2025-01-09 12:41] LABS: Troponin I < 0.012 ng/ml
[2025-01-09 15:08] VITALS: BP 137/60
[2025-01-09 16:00] VITALS: BP 139/56
--- NOTE | 2025-01-09 16:02 | ED.GENMED ---
History of Present Illness
General
Chief Complaint: Abdominal Pain
Source: patient
Exam Limitations: none
Time Seen by Provider: 01/09/25 15:33
Nursing documentation reviewed up to this point in time: agreed with
History of Present Illness
History of Present Illness:
The patient is a pleasant 89-year-old man who reports 3 to 4 weeks of intermittent upper abdominal pain radiating into his chest and down his right abdomen. Patient reports that the pain seems worse after eating, causing him to be hesitant to eat.
Patient reports associated nausea but no vomiting. Patient reports that he takes fiber and MiraLAX to have bowel movements because he suffers with chronic constipation. He reports that lately his bowel movements appear to be in normal brown color
but are pasty in consistency. He denies blood in the stool. He denies black stools. He denies fever and vomiting. Patient reports that he was evaluated by his primary care doctor earlier who was worried about his gallbladder, prompting him to
come to the ED. Currently, patient has right upper abdominal pain as well as lower mid abdominal pain.
Past History
Past History
ED Past Medical History: CVA, Hypercholesterolemia, Other (Macular degeneration) and Other (Aortic stenosis)
ED Past Surgical History: Orthopedic
Social History
Tobacco: Non-smoker
Alcohol: None
Drug: None
Personal: Other
Living: other
Employment: Other
Family History
Family History: Other
Review of Systems
Review of Systems
Allergies reviewed?: Yes
All Other Systems: ROS reviewed and negative except as documented in HPI and ROS
Constitutional: Reports weight loss
EENT: Reports no symptoms
Respiratory: Reports no symptoms
Cardiac: Reports no symptoms
ABD/GI: Reports abdominal pain, nausea, constipated and anorexia
: Reports no symptoms
Musculoskeletal: Reports no symptoms
Skin: Reports no symptoms
Neurological: Reports no symptoms
Endocrine: Reports no symptoms
Hematologic/Lymphatic: Reports no symptoms
Psychiatric: Reports no symptoms
Phy Exam
Physical Exam
Physical Exam:
Physical Exam
General: no apparent distress, not acutely ill. Patient coughing
Neck: supple. no meningeal signs. normal psoterior pharynx
Heart: s1/s2 regular rate and rhythm, chronic systolic murmur. equal radial pulses.
Lungs: no acute respiratory distress. clear bilaterally
Abdomen: Soft throughout. Right upper quadrant tenderness. No rebound or guarding. No pulsatile mass. Lower abdominal tenderness
Neuro: alert and oriented. no focal neurological deficits
Skin: no rash
Psychiatric: well kept. interactive and cooperative
Extremities: no edema. no calf tenderness. negative homans. good distal pulses
Course
Orders/Labs/Results
Orders:
Orders
01/09/25 11:58
Electrocardiogram (*1) Urgent
Reason for Study: Abdominal Pain
EKG- Treatment ONCE
01/09/25 12:03
CR Chest - 2 Views Urgent
Comment:
Reason For Exam: cough/chest pain
01/09/25 12:08
Complete Blood Count/With Diff Urgent
Comprehensive Metabolic Panel Urgent
Lipase Urgent
Troponin I Urgent
01/09/25 16:16
CT Abd/pelvis W Iv Cont Urgent
Comment:
Reason For Exam: RUQ pain, mid lower abdominal pain
01/09/25 16:17
Doxycycline [Vibramycin] 100 mg PO NOW STA
01/09/25 17:20
Urinalysis Reflex To Culture Urgent
Date Specimen was Collected: 01/09/25
Time Specimen was Collected: 17:19
Urine Microscopic Reflex Cult Urgent
Abnormal Lab Results
01/09/25 01/09/25
12:08 17:20
RBC 4.69 L 10^6/uL
(4.70-6.10)
Absolute Neuts (auto) 6.8 H 10^3/uL
(1.4-6.5)
Absolute Lymphs (auto) 1.0 L 10^3/uL
(1.2-3.4)
Absolute Monos (auto) 0.9 H 10^3/uL
(0.1-0.6)
Neutrophils % 77.5 H %
(42.2-75.2)
Lymphocytes % 11.2 L %
(20.5-51.1)
Monocytes % 10.3 H %
(1.7-9.3)
Sodium 134 L mmol/L
(135-145)
Glucose 134 H mg/dl
(70-99)
Alkaline Phosphatase 197 H U/L
(38-126)
Urine Ketones 2+ A
(Negative)
Ur Occult Blood Reflex 3+ A
(Negative)
Urine Urobilinogen 2+ A
(Neg - 1+)
Urine RBC 3-6 A /HPF
(0-2)
Urine Bacteria (Reflex) Few A
(Negative)
Urine Albumin (Reflex) 2+ A
(Neg - Trace)
01/09/25 12:08
01/09/25 12:08
Vital Signs
Initial and Last Documented VS:
Initial Vital Signs
Temp Pulse Resp BP Pulse Ox
98.0 F 71 20 121/68 99
01/09/25 12:01 01/09/25 12:01 01/09/25 12:01 01/09/25 12:01 01/09/25 12:01
Last Documented Vital Signs
Temp Pulse Resp BP Pulse Ox
98.0 F 58 23 137/60 99
01/09/25 12:01 01/09/25 15:15 01/09/25 15:15 01/09/25 15:08 01/09/25 16:03
MDM/Problems Addressed
Differential Diagnosis Includes:
Biliary colic, acute cholecystitis, GERD, gastritis, constipation
MDM/Problems Addressed:
Patient presents with subacute upper abdominal pain as well as acute lower abdominal pain
Chronic conditions affecting care:
History of gallstones
Acute Exacerbation and/or Progression of Chronic Illness:
Gallstones may be causing acute biliary colic or acute cholecystitis
*Radiology
Radiology exam reviewed: preliminary read by ED provider (Chest x-ray reviewed by me. Possible right lower lobe infiltrate) and radiology read reviewed
*Pulse Oximetry
SaO2: 99
Oxygen Mode of Delivery: Room air
Patient hypoxic: no
*EKG
Interpreted by ED Provider?: Yes
Interpretation: abnormal
Comparison EKG: changes noted
Rate: normal
Rhythm: sinus arrhythmia
[place]: normal axis
Interval: normal interval
QRS Pattern: right bundle branch block
Ischemia: non-specific ST changes
*Electric Range Assembler Interpretation
Rate: normal
Interpretation: normal
Rhythm: sinus
*Critical Care Note
Total Time (30-74mins, 75-104mins- exclusive of procedures): Not Applicable
Data Reviewed
Review of Other/Old Records Reveals: Radiology Studies (CAT scan of abdomen pelvis reviewed from 2021 which showed gallstones without acute cholecystitis)
Source: patient and family
Patient Management
Social determinants of health affecting care: Living situation and Strong social support
Discussion with other providers: Other (CAT scan report reviewed with Dr. Plascencia in regards to the cystic mass and localized inflammation of right flank area and right kidney. He recommended MRI as outpatient)
Escalation/DeEscalation of care consider admission/obs:
Patient tried to drink water in the emergency department and developed significant right upper abdominal pain. Patient and family are very hesitant for him to go home given his persistent nausea and pain, likely due to his gallstones. Patient will
be admitted for symptomatic gallbladder disease
ED Attending Note
-
Portions of this chart may have been created with voice recognition software.� Occasional wrong word or��sound alike� substitutions may have occurred due to the inherent limitations of voice recognition software.
Discharge Plan
Departure
Patient Disposition: Admit
Date of Disposition: 01/09/25
Time of Disposition: 19:06
Admit to: Med/Surg
Presentation/result/management discussed w/ accepting MD/DO: Hospitalist
Discharge Problem:
Symptomatic gallbladder disease, Right kidney mass
Prescriptions:
No Action
ascorbic acid (vitamin C) [Vitamin C] 500 MG tablet
500 mg PO Q48H
PreserVision AREDS-2 1 EACH capsule
1 tab PO BID
cholecalciferol (vitamin D3) 2,000 UNITS tablet
2,000 unit PO Q48H
aspirin 81 mg Tablet,Chewable
81 mg PO DAILY Qty: 30 0RF
rosuvastatin 20 mg Tablet
20 mg PO QPM Qty: 30 0RF
Referrals:
Gunjan Maya DO [Family Provider, Internal Medicine]
Interventions
Interventions:
*General Assessment Last Done: 01/09/25 12:01
AM-Texyfd-Ljnuyjyqiz Assessment Last Done: 01/09/25 17:12
Discharge Date and Time
Print Language: TRINIDADIAN
[2025-01-09] MEDS: VIBRAMYCIN 100 MG PO (16:51)
[2025-01-09 17:29] LABS: Urine Character Clear (Clear)
[2025-01-09 17:53] LABS: Urine Squamous Cell 0-2 /LPF (Few)
[2025-01-09 17:55] LABS: Urine White Cell 0-2 /HPF (0-5)
--- NOTE | 2025-01-09 19:55 | HPS.HSE ---
Family Physician
-
Family Physician: Gunjan Maya
Chief Complaint
-
right sided abdominal pain
History of Present Illness
89-year-old man with past medical history for CVA, hyperlipidemia presented to us with 3 to 4 weeks of intermittent right-sided abdominal pain radiating into his chest. Patient reports that the pain seems worse after eating, causing him to be
hesitant to eat. Patient reports associated nausea but no vomiting. On he had a loose stool, on Sunday he noticed pasty stool. he denies blood in the stool. He denies black stools. He denies fever and vomiting. Patient denies any
headache, dizziness or syncope. Patient denied any dysuria hematuria. Patient denied any lower extremities edema. Patient complained of nonproductive cough for [address] concerning for renal carcinoma. Admitted for further manage
Medical History
Past Medical History
Past Medical History: Reports Other
Additional Past Medical History:
Nephrolithiasis, pulmonary nodule aortic stenosis
Past Surgical History: Reports Other
Additional Past Surgical History:
shoulder surgery, knee surgery, right ureteroscopy with laser litho and stent
Social History
Tobacco: Non-smoker
Alcohol: None
Drug: None
Family History
Family History: Not pertinent
Allergies / Home Medications
Allergies reflects when Allergies were last updated in [facility].
Home Medications with original date entered in [facility]
Allergy/Medication List:
Allergies
Allergy/AdvReac Type Severity Reaction Status Date / Time
diphenhydramine (From Allergy Hives Verified 01/09/25 12:01
Benadryl)
Home Medications
ascorbic acid (vitamin C) 500 mg tablet (Vitamin C) 500 mg PO Q48H Supplement 04/19/17
cholecalciferol (vitamin D3) 50 mcg (2,000 unit) tablet 2,000 unit PO Q48H Supplement 04/19/17
vit C 250 mg-vit E 90 mg-zinc 40 mg-copper 1 [id number] capsule (PreserVision AREDS-2) 1 tab PO BID Eye Condition 04/19/17
aspirin 81 mg chewable tablet 81 mg PO DAILY #30 tabs 06/30/24
rosuvastatin 20 mg tablet 20 mg PO QPM #30 tabs 06/30/24
Review of Systems
-
Constitutional: Reports No Symptoms
EENT: Reports No Symptoms
Respiratory: Reports No Symptoms
Cardiac: Reports No Symptoms
Abdomen/GI: Reports Abdominal Pain (Right-sided) and Nausea
: Reports No Symptoms
Musculoskeletal: Reports No Symptoms
Skin: Reports No Symptoms
Neurological: Reports No Symptoms
Endocrine: Reports No Symptoms
Hematologic/Lymphatic: Reports No Symptoms
Psych: Reports No Symptoms
Physical Exam
Vital Signs
Vital Signs
Temp Pulse Resp BP Pulse Ox
98.0 F 58 23 137/60 99
01/09/25 12:01 01/09/25 15:15 01/09/25 15:15 01/09/25 15:08 01/09/25 16:03
Physical Exam
General: Well Developed, Well Nourished and No Apparent Distress
HEENT: NormoCephalic, Moist mucous membranes and Atraumatic
Respiratory: Clear
Cardiac: S1/S2 and Regular Rhythm; No Murmur or Rub
GI: Soft, Non Tender, Non Distended and Normal Bowel Sounds; No Organomegaly
Rectal: Deferred by Provider
Musculoskeletal: No Clubbing, No Cyanosis and No Edema
Skin: No Rash
Neuro: AO x 3 and Nonfocal/grossly intact
Psych: Calm
Laboratory Results
-
01/09/25 12:08
01/09/25 12:08
Laboratory Results
Total Bilirubin 0.9 mg/dl (0.2-1.3) 01/09/25 12:08
AST 34 U/L (17-59) 01/09/25 12:08
ALT 31 U/L (0-50) 01/09/25 12:08
Alkaline Phosphatase 197 U/L (38-126) H 01/09/25 12:08
Troponin I < 0.012 ng/ml 01/09/25 12:08
Lipase 135 U/L (23-300) 01/09/25 12:08
Data Reviewed
-
Diagnostic Radiology: Report Reviewed by me
CT Scan: Report Reviewed by me
Lab Data: Labs Reviewed by me
Impression/Plan
-
# Right upper quadrant pain associate with nausea concern for biliary colic
-surgery consulted
-iv Dilaudid prn for pain
-Zofran prn for n/v
#concern for renal cell carcinoma
- MRI
- Urology consult
- CT abdomen pelvis with impression Inflammatory fat stranding anterior to the right kidney and thickening of the right anterior renal fascia, of uncertain etiology. Findings may be infectious, inflammatory, or neoplastic.3.5 cm complex cystic mass
in the midpole of the right kidney which appears to have increased in complexity compared to previous examinations now with a peripheral enhancing component, considered suspicious for renal cell carcinoma.Cholelithiasis.Large volume colonic stool,
possibly secondary to constipation.2.0 cm solid pulmonary nodule in the right lower lobe with smooth well-defined margins. Slow interval growth dating back to 2018, and was not hypermetabolic on the PET/CT from 07/25/2017. Soft tissue sampling could
still be considered for more definitive characterization if not previously performed.
#cough concern for pneumonia
- Chest x-ray with impression There is patchy airspace disease in the right lower lobe. Early pneumonia cannot be excluded.
-iv Unasyn continued
-obtain strep pneumoniae and legionella
-Mucinex for cough
-Tylenol prn for fever
-obtain procal in AM
#history of TIA/CVA
- Aspirin continued
Hx of aortic stenosis--mild
Hyperlipidemia--Crestor continued
Macular degeneration--continue PreserVision
DVT prophylaxis-lovenox
CODE STATUS-DNR
--- NOTE | 2025-01-09 20:00 | W.PN.UPDATE ---
Update Note
Progress Note Update
Patient seen and congestion with SEA. I agree with the findings and physical. I concur with assessment and plan listed otherwise.
Briefly, this is a 89-year-old male with past medical history significant for CVA, macular degeneration, hyperlipidemia who presents to the emergency department with intractable nausea abdominal pain and weight loss.
Family reports about 10 pounds with weight loss initial period of time. Reports nausea every time he eats and drinks. He also reports associated right upper quadrant abdominal pain. Denies any jaundice. Denies any new medication changes. Denies
night sweats. He has no fevers. Today reporting no cough or shortness of breath or chills or other signs of an acute infection. He denies any urinary symptoms.
He does report nonproductive cough that is been going on for about 2 weeks as well. This started initially with rhinorrhea postnasal drip. He reports some clamminess in the morning but no dominic fevers or chills or night sweats.DN
In the emergency department he was afebrile, blood pressure was 137/60 with a pulse of 58 and was satting 99% on room air. Chest x-ray did show a patchy airspace opacities in the right lower lobe. This could be related to a nodule but infection
cannot be ruled out entirely. Labs were mostly unremarkable with normal CBC. Electrolyte BUN/creatinine were normal. LFTs were normal except for elevated alk phos of 180.
CT of the abdomen pelvis showing cholelithiasis without acute cholecystitis or choledocholithiasis. Additional incidental findings include a complex cystic mass in the midpole of the right kidney appeared to have increased from prior. Trace
inflammatory fat stranding anterior to the right kidney there is also a solid pulmonary nodule in the right lower lobe similar to prior and appears to be slow-growing and not metabolically active.
Assessment and plan
89-year-old with intractable nausea right upper quadrant pain and weight loss, found to have gallstones without evidence of acute cholecystitis. Patient is unable to tolerate p.o. and has some weakness. He does not appear significantly dehydrated
at this time. Symptoms could be consistent with biliary colic. Additional findings includes a complex cystic mass which is possibly renal cell cancer. Additionally patient does have a patchy opacities in the right lower lobe that could be
aspiration pneumonia but shows no systemic signs of infection.
1. 1 intractable nausea vomiting -at this time suspect biliary colic the etiology poor surgical candidate
- Admit to MedSurg
- Diet as tolerated
- In the meantime, antiemetics [id number], pain control
- IV fluids
- Anticonstipation agent
- Surgical consultation
- Trend LFTs
2. Patchy right lower lobe opacity -possible pneumonia cannot be ruled out
- Will start Unasyn for now
- Blood cultures afebrile
- Check Pro-Myles, DC antibiotics if procal is negative
3. Right cyst complex cystic mass
- ED discussed with urology, MRI ordered
- Urology consultation
- Will likely need cytology which can be done as an outpatient
DVT prophylaxis -Lovenox subcu
CODE STATUS�DNR
[2025-01-09 21:30] VITALS: BP 144/66; BMI 24.9
[2025-01-09] MEDS: MUCINEX 600 MG PO (22:44)
[2025-01-09] MEDS: UNASYN IV (22:44)
[2025-01-09 23:00] VITALS: BP 127/64
--- NOTE | 2025-01-10 03:15 | PTCARENOTE ---
01/09/2025 - PT admitted to room 2106 from the ED @2130. PT ambulated from stretcher to bed with one person assist. PT AAOX3 and oriented to room, call gutiérrez and plan of care discussed.PT able to fully participate in admission questions. Placed bed
alarm for PT safety. Assessment as documented.
[2025-01-10] MEDS: UNASYN IV ×2 (04:20→10:00)
[2025-01-10 07:05] VITALS: BP 129/62
--- NOTE | 2025-01-10 08:48 | W.PN.HOSP.TC ---
Addendum entered and electronically signed by Harvey Galindo MD 01/10/25 14:58:
Discussed with urology, abdominal MRI to characterize right renal mass can be done outpatient.
Original Note:
Today's Communication/Plan
-
see bold
Assessment / Plan
Assessment / Plan
HPI: 89-year-old man with past medical history for CVA, hyperlipidemia presented to us with 3 to 4 weeks of intermittent right-sided abdominal pain radiating into his chest. Patient reports that the pain seems worse after eating, causing him to be
hesitant to eat. Patient reports associated nausea but no vomiting. On he had a loose stool, on Sunday he noticed pasty stool. he denies blood in the stool. He denies black stools. He denies fever and vomiting. Patient denies any
headache, dizziness or syncope. Patient denied any dysuria hematuria. Patient denied any lower extremities edema. Patient complained of nonproductive cough for 2 weeks
#Postprandial right upper quadrant/epigastric abdominal pain
Concerning for biliary colic versus peptic ulcer disease
CT of the abdomen and pelvis shows cholelithiasis
Appreciate general surgery input, check abdominal ultrasound to assess for cholecystitis
Appreciate GI input, continue Protonix, for possible endoscopy on Sunday
Clear liquid diet today, PPI
#Right renal mass
Appreciate urology input, this is not causing his abdominal pain
Recommend abdominal MRI
#Abnormal chest x-ray
Patient is afebrile, there is no leukocytosis, procalcitonin normal
He denies shortness of breath or coughing
Will discontinue IV Unasyn
#History of TIA/CVA
Continue aspirin/statin
#Macular degeneration
#History of aortic stenosis
DVT prophylaxis�subcu Lovenox
DNR
Updated son at bedside 01/10
Total time spent to see the patient on the floor, examine the patient, review data and lab results, discuss treatment plan with patient, nursing staff around 50 minutes.
Physical Exam
General: No acute distress
HEENT: Normocephalic, Atraumatic, EOMI, MMM
Respiratory: Clear to Auscultation bilaterally
Cardiac: Normal S1/S2, Regular Rate and Rhythm
GI: Soft, tender at the right upper quadrant and epigastrium, Nondistended, Normal Bowel Sounds
Extremities: No Clubbing, Cyanosis, or Edema
Neuro: Nonfocal/Grossly Intact
Anticipated Discharge: > 48 hours
Subjective/Interval History
-
Date of Service: January 10, 2025
Objective Data
-
Labs:
Laboratory Results
01/10/25
06:00
WBC Pending
Hgb Pending
Hct Pending
Plt Count Pending
Sodium Pending
Potassium Pending
Chloride Pending
Carbon Dioxide Pending
BUN Pending
Creatinine Pending
Glucose Pending
Calcium Pending
Total Bilirubin Pending
AST Pending
ALT Pending
Alkaline Phosphatase Pending
Vital Signs:
Vital Signs
Temp Pulse Resp BP Pulse Ox
98.3 F 59 16 129/62 95
01/10/25 07:05 01/10/25 07:05 01/10/25 07:05 01/10/25 07:05 01/10/25 07:05
I&O
01/09/25 01/10/25 01/11/25
06:59 06:59 06:59
Intake Total 680 / 680
Balance 680 / 680
[2025-01-10 09:07] LABS: Hematocrit 36.6 % (39.0-52.0); Hemoglobin 12.5 g/dL (13.0-18.0); Mean Corp Hgb Conc. 34.2 g/dL (33.0-37.0); Mean Corpuscular Volume 86.9 fL (80.0-94.0); Platelet Count 272 10^3/uL (130-400); Red Cell Dist. Width 11.7 % (11.5-14.5)
[2025-01-10] MEDS: OCUVITE SOFTGEL 1 CAP PO ×2 (09:59→20:52)
[2025-01-10] MEDS: MUCINEX 600 MG PO ×2 (10:00→20:52)
[2025-01-10] MEDS: LOW STRENGTH ASPIRIN 81 MG PO (10:00)
[2025-01-10 10:03] LABS: ALT (SGPT) 26 U/L (0-50); AST (SGOT) 26 U/L (17-59); Albumin 3.4 g/dl (3.5-5.0); Alkaline Phosphatase 169 U/L (38-126); Blood Urea Nitrogen 13 mg/dl (9-20); Calcium 9.0 mg/dl (8.4-10.2); Carbon Dioxide 24 mmol/L (22-30); Chloride 102 mmol/L (98-107); Estimated Creatinine Clearance 74 ml/min; Glucose 119 mg/dl (70-99); Potassium 4.6 mmol/L (3.5-5.1); Sodium 133 mmol/L (135-145); Total Protein 6.4 g/dl (6.3-8.2); eGFR > 60.00
[2025-01-10 10:12] LABS: Procalcitonin 0.16 ng/ml (0.0-0.25)
[2025-01-10] MEDS: NSS (PRESERVATIVE FREE) 10 ML IV (11:06)
[2025-01-10] MEDS: PROTONIX IV 40 MG IV (11:06)
--- NOTE | 2025-01-10 12:12 | W.PN.URO.CBU ---
Today's Communication / Plan
-
await gi input doubt renal mass is source of pain
Assessment / Plan
-
renal masses can cause pain but generally constant and in back often with hematuria and generally not post prandial i suggest gi and general surgery eval possible sheyla jeet sweet the problem is if uirts though t to be renal the only teatment
is nephrectomy can also obtain after gi evaluationwould be mr abd with ad withutiv contrast
Diagnosis
-
Date of Service: January 10, 2025
-
Patient Diagnosis:
known rt renal mas followe d with u/s for complex cyst possible rcca now mass grown also pt presents with intermittent ruq pain brought on with food or water gall stones also seen
Post Op Day:
Subjective
-
ruq discomfort
Objective
-
Vital Signs
Temp Pulse Resp BP Pulse Ox
98.3 F 59 16 129/62 96
01/10/25 07:05 01/10/25 07:05 01/10/25 07:05 01/10/25 07:05 01/10/25 11:51
Intake and Output
01/09/25 01/10/25 01/11/25
06:59 06:59 06:59
Intake Total 680 / 680
Balance 680 / 680
Intake:
Oral fluids 480 / 480
IV piggybacks 200 / 200
Other:
Number of approximated MODERATE 1
amounts of urine
Laboratory Results
01/10/25 08:56
01/10/25 08:56
Review of Systems
-
: No Symptoms
Physical Exam
-
General - well developed, well nourished, no acute distress
Chest - clear bilaterally
Abdomen - soft, non-tender, positive bowel sounds, no CVAT, no incisional pain or distention
Genitalia - normal
Rectal - normal
Skin - warm & dry with no rash
Neuro - AOx3, no motor deficits
Extremities - no clubbing, no cyanosis, no edema
Incision - clean, dry
Dressing - clean, dry, intact
Care Review
Data Reviewed
Discussed with: Hospitalist, Nursing and Family
CT Scan: Image Pers Reviewed
--- NOTE | 2025-01-10 12:40 | CON.GI ---
Consultation
-
Date/Time Consultation Requested: 01/10/2025
Date/Time Consultation Performed: 01/10/2025
Requesting Provider:
Performing Provider:
Reason for Consultation: RUQ pain
Medical History
Chief Complaint / HPI
Chief Complaint: upper abdominal pain, RUQ
History of Present Illness:
This is a very pleasant 89-year-old male with past medical history of CVA 06/2024, hyperlipidemia, Nephrolithiasis, kidney cyst and mass, stable pulmonary nodule, aortic stenosis, macular degeneration living at [facility] presented to the
emergency room last night with abdominal pain. He has been having symptoms of upper abdominal predominantly right upper quadrant pain for the past 3 weeks with loss of appetite and progressively decreasing oral intake. He says he has lost about 10
pounds also over the past 2 months. On admission labs he was noted to have elevated alkaline phosphatase level and normal lipase level but CT shows constipation and gallstones no ductal dilatation noted and no evidence of obvious cholecystitis
noted. He was also noted to have known stable pulmonary nodule and known kidney mass of the right kidney. Denies any fevers or chills. He says that he also has been having symptoms of early satiety for the past 3 weeks and was feeling full after
couple of bites of food. No nausea or vomiting but he also has been recently experiencing heartburn. He denies dysphagia. He has never had a colonoscopy or endoscopy in the past. He says that the physician at [facility] had also recommended
MiraLAX and senna as needed for constipation but he has not been using it daily.
Past Medical History
Past Medical History: Other (CVA 06/2024, hyperlipidemia, Nephrolithiasis, kidney cyst and mass, stable pulmonary nodule, aortic stenosis, macular degeneration)
Past Surgical History: Other (shoulder surgery, knee surgery, right ureteroscopy with laser litho and stent)
Social History
Tobacco: Non-Smoker
Alcohol: Occasional
Drug: None
Living: Other ([facility])
Family History
Family History: Reviewed & Not Pertinent
Allergies / Home Medications
Allergy/AdvReac Type Severity Reaction Status Date / Time
diphenhydramine (From Allergy Hives Verified 01/09/25 12:01
Benadryl)
�Medication �Instructions �Recorded
ascorbic acid (vitamin C) 500 mg 500 mg PO Q48H Supplement 04/19/17
tablet (Vitamin C)
cholecalciferol (vitamin D3) 50 2,000 unit PO Q48H Supplement 04/19/17
mcg (2,000 unit) tablet
vit C 250 mg-vit E 90 mg-zinc 40 1 tab PO BID Eye Condition 04/19/17
mg-copper 1 [id number]
capsule (PreserVision AREDS-2)
aspirin 81 mg chewable tablet 81 mg PO DAILY #30 tabs 06/30/24
rosuvastatin 20 mg tablet 20 mg PO QPM #30 tabs 06/30/24
Review of Systems
-
All other systems: A 12 pt ROS was Negative except as stated above in HPI
Vital Signs
Temp Pulse Resp BP Pulse Ox
98.3 F 59 16 129/62 96
01/10/25 07:05 01/10/25 07:05 01/10/25 07:05 01/10/25 07:05 01/10/25 11:51
Physical Exam
Exam
General: No Apparent Distress
HEENT: Normocephalic
Respiratory: Clear
Cardiac: S1/S2 and Other (ZAHRA)
GI: Soft, Non Distended, Normal Bowel Sounds and Tender (upper abdomen but more in RUQ)
Musculoskeletal: No Clubbing
Skin: Warm
Neuro: Awake, Alert and Oriented
Psych: Calm
Results
WBC 8.9 10^3/uL (4.8-10.8) 01/10/25 08:56
Hgb 12.5 g/dL (13.0-18.0) L 01/10/25 08:56
Hct 36.6 % (39.0-52.0) L 01/10/25 08:56
MCV 86.9 fL (80.0-94.0) 01/10/25 08:56
Plt Count 272 10^3/uL (130-400) 01/10/25 08:56
Absolute Neuts (auto) 6.8 10^3/uL (1.4-6.5) H 01/09/25 12:08
Sodium 133 mmol/L (135-145) L 01/10/25 08:56
Potassium 4.6 mmol/L (3.5-5.1) 01/10/25 08:56
Chloride 102 mmol/L (98-107) 01/10/25 08:56
Carbon Dioxide 24 mmol/L (22-30) 01/10/25 08:56
BUN 13 mg/dl (9-20) 01/10/25 08:56
Creatinine 0.7 mg/dL (0.7-1.3) 01/10/25 08:56
Calcium 9.0 mg/dl (8.4-10.2) 01/10/25 08:56
Total Bilirubin 0.7 mg/dl (0.2-1.3) 01/10/25 08:56
AST 26 U/L (17-59) 01/10/25 08:56
ALT 26 U/L (0-50) 01/10/25 08:56
Alkaline Phosphatase 169 U/L (38-126) H 01/10/25 08:56
Lipase 135 U/L (23-300) 01/09/25 12:08
Diagnostic Image Results:
01/09/2025 CT abdomen and pelvis w IV contrast
IMPRESSION:
Inflammatory fat stranding anterior to the right kidney and thickening of the right anterior renal fascia, of uncertain etiology. Findings may be infectious, inflammatory, or neoplastic.
3.5 cm complex cystic mass in the midpole of the right kidney which appears to have increased in complexity compared to previous examinations now with a peripheral enhancing component, considered suspicious for renal cell carcinoma.
Cholelithiasis.
Large volume colonic stool, possibly secondary to constipation.
2.0 cm solid pulmonary nodule in the right lower lobe with smooth well-defined margins. Slow interval growth dating back to 2018, and was not hypermetabolic on the PET/CT from 07/25/2017. Soft tissue sampling could still be considered for more
definitive characterization if not previously performed.
Prior GI Procedures:
EGD: none
Colonoscopy: none
Assessment / Plan
-
1. Abdominal pain mostly in the right upper quadrant associated with symptoms of loss of appetite, bloating and also early satiety for the past 3 weeks which could be related to biliary colic and also probable PUD, less likely neoplasm. He has had
a 10 pound weight loss also over the past [address] Galindo and Dr. San and Dr. Plascencia. He does have a known kidney mass doubt that this is causing his acute pain for the past 3 weeks. Will need an eventual MRI will
defer to urology. He is scheduled for an abdomen ultrasound and most likely will need cholecystectomy timing per Dr. San. Will also schedule him for an endoscopy if his pain is persistent and not relieved with cholecystectomy on Sunday.
Continue Protonix. He was on aspirin. After his stroke in June he was on aspirin and Plavix for 21 days and then subsequently was taken off Plavix. LFTs are mostly unremarkable except for elevated alkaline phosphatase level. Will get hepatitis
serologies and GGT and if continues to rise may need to hold his statin
2. Constipation chronic will start him on MiraLAX daily and senna.
3. Stable pulmonary nodule and he had a PET scan for this also in the past
4. Kidney mass and kidney cysts follows up regularly with urology known to Dr. Mao as outpatient
Data Reviewed
-
CT Scan: Report Reviewed by me
-
-
Thank you for consultation and allowing me to participate in the patient's care. Please call the risk control officer GI physician during the after hours with any questions or concerns.
--- NOTE | 2025-01-10 14:15 | CM ---
CM following re: discharge planning.
Reviewed pt's chart, met with pt and pt's girlfriend Leticia at bedside. pt described his girlfriend as 'my Love'.
Pt reports he lives alone in an independent apartment at [facility], has supportive son, another son . Emotional support offered and provided. Pt described himself as independent in all areas TA, known to [facility] in the
past. Pt expressed his desire to return back home at discharge and his son will transport.
PCP: Gunjan Maya
Pharmacy: [facility] pharmacy
D/C plan: home with anticipated no needs. Son to transport at discharge.
CM will follow with discharge plan updates as hospitalization progresses
[2025-01-10 15:00] VITALS: BP 130/62
--- NOTE | 2025-01-10 15:12 | CON.GS ---
Addendum entered and electronically signed by Leeroy San MD 01/10/25 16:22:
I saw and examined the patient.
The Career Guidance Technician's note was reviewed and I agree with the note.
Comment: pt reports 1 month of ruq pain, progressive, now a sip of water causes pain, right renal mass noted, lfts wnl, pain most likely 2/2 gb but there is some concern for possible PUD given the timing, GI following, will obtain RUQ US to better
define biliary anatomy, consider CCY vs perc drain pending US findings
Original Note:
Consultation
-
Date/Time Consultation Performed: 01/10/25 1045
Medical History
-
Chief Complaint: abdominal pain with n/v
History of Present Illness:
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 He notes that even a sip of water
often gives him discomfort. He reports that he has lost 10lbs over the past month. He denies nausea or vomiting but notes worsening heartburn over the past month. He has been constipated with miralax recommended as an outpatient. He reports
discomfort to this upper abdomen with tenderness to the epigastrium and RUQ noted without CVA tenderness.
Past Medical History
Past Medical History: CVA (06/2024), Hypercholesterolemia and Other (complex renal cyst, nephrolithiasis)
Past Surgical History: Orthopedic (knee) and Urological (ureteroscopy and ESWL for stones)
Social History
Tobacco: Non-Smoker
Alcohol: Occasional
Living: Assisted Living ([facility]ifer's choice)
Family History
Family History: Reviewed & Not Pertinent
Allergies / Home Medications
Allergy/AdvReac Type Severity Reaction Status Date / Time
diphenhydramine (From Allergy Hives Verified 01/09/25 12:01
Benadryl)
�Medication �Instructions �Recorded �Confirmed �Type
ascorbic acid (vitamin C) 500 mg 500 mg PO Q48H Supplement 04/19/17 01/09/25 History
tablet (Vitamin C)
cholecalciferol (vitamin D3) 50 2,000 unit PO Q48H Supplement 04/19/17 01/09/25 History
mcg (2,000 unit) tablet
vit C 250 mg-vit E 90 mg-zinc 40 1 tab PO BID Eye Condition 04/19/17 01/09/25 History
mg-copper 1 [id number]
capsule (PreserVision AREDS-2)
aspirin 81 mg chewable tablet 81 mg PO DAILY #30 tabs 06/30/24 01/09/25 Rx
rosuvastatin 20 mg tablet 20 mg PO QPM #30 tabs 06/30/24 Rx
Review of Systems
-
History Source: Patient and Family
All other systems: Negative unless noted
A 10 point review of systems was completed, and was negative except as per HPI.
Physical Exam
Vital Signs
Temp Pulse Resp BP Pulse Ox
98.3 F 59 16 129/62 96
01/10/25 07:05 01/10/25 07:05 01/10/25 07:05 01/10/25 07:05 01/10/25 11:51
01/09/25 01/10/25 01/11/25
06:59 06:59 06:59
Actual Weight 76.385 kg
Body Mass Index (BMI) 24.9
Lab Results
01/10/25 08:56
01/10/25 08:56
WBC 8.9 10^3/uL (4.8-10.8) 01/10/25 08:56
Hgb 12.5 g/dL (13.0-18.0) L 01/10/25 08:56
Hct 36.6 % (39.0-52.0) L 01/10/25 08:56
Plt Count 272 10^3/uL (130-400) 01/10/25 08:56
Abs Immat Gran (auto) 0.0 10^3/uL (0-0.05) 01/09/25 12:08
Neutrophils % 77.5 % (42.2-75.2) H 01/09/25 12:08
Physical Exam
General: Well Developed
HEENT: Moist Mucous Membranes
Respiratory: Non Labored Respirations
GI: Soft, Non Distended and Tender (epigastrium and RUQ)
Skin: Warm and Dry
Neuro: Awake, Alert and AO x 3
Psych: Calm
Data Reviewed
-
CT Scan: Image Personally Visualized and interpreted, Report Reviewed by me, Discussed with Physician, Discussed with Nurse, Discussed with Patient and Discussed with Family
Labs: Labs Reviewed by me, Discussed with Physician, Discussed with Patient and Discussed with Family
Old Records: Reviewed
Assessment / Plan
-
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
loss. Epigastric and RUQ tenderness on exam. Afebrile. VSS. No leukocytosis. LFT's WNL. CT imaging reviewed with inflammatory process near the right kidney with changes to prior complex cyst, ?renal carcinoma. Large stool burden. Gallstones noted
although the gallbladder wall is not thickened.
Unclear etiology of symptoms, possibly biliary colic vs PUD.
Plan:
Will check GB US to further evaluate, may also need HIDA scan pending imaging findings
D/w gastroenterology, tentative EGD Sunday
Started on PPI
Bowel regimen started for constipation
D/w urology, renal carcinoma unlikely to be culprit of current symptoms, and nonurgent MRI as outpatient to be arranged for work up of RCC.
Ok for clear liquids after US, keep NPO for testing for now
No leukocytosis, LFT's normal. No evidence of cholecystitis. No plans for surgery at this time, will need further work up prior to decision to pursue cholecystectomy.
[2025-01-10] MEDS: CRESTOR 20 MG PO (17:46)
[2025-01-10] MEDS: LOVENOX 40 MG SC (17:46)
[2025-01-10 23:00] VITALS: BP 130/61
[2025-01-11] VITALS (15 sets, daily range): BP systolic 119–152; BP diastolic 61–75
--- NOTE | 2025-01-11 08:47 | W.PN.HOSP.TC ---
Today's Communication/Plan
-
For cholecystectomy with surgery today
Assessment / Plan
Assessment / Plan
HPI: 89-year-old man with past medical history for CVA, hyperlipidemia presented to us with 3 to 4 weeks of intermittent right-sided abdominal pain radiating into his chest. Patient reports that the pain seems worse after eating, causing him to be
hesitant to eat. Patient reports associated nausea but no vomiting. On he had a loose stool, on Sunday he noticed pasty stool. he denies blood in the stool. He denies black stools. He denies fever and vomiting. Patient denies any
headache, dizziness or syncope. Patient denied any dysuria hematuria. Patient denied any lower extremities edema. Patient complained of nonproductive cough for 2 weeks
#Postprandial right upper quadrant/epigastric abdominal pain
Concerning for biliary colic versus peptic ulcer disease
CT of the abdomen and pelvis shows cholelithiasis
Appreciate general surgery input, plan for cholecystectomy today
Appreciate GI input, continue Protonix, for endoscopy on Sunday
Continue PPI
#Right renal mass
Appreciate urology input, this is not causing his abdominal pain
Recommend abdominal MRI outpt
#Abnormal chest x-ray
#Right pulmonary nodule
CXR shows patchy airspace disease in the right lower lobe. Early pneumonia cannot be excluded.
Chest CT shows 2.0 cm solid pulmonary nodule in the right lower lobe with smooth well-defined margins.
Patient is afebrile, there is no leukocytosis, procalcitonin normal
He denies shortness of breath or coughing
Discontinued IV Unasyn
#History of TIA/CVA
Continue aspirin/statin
#Hyponatremia
Mild, monitor
#Macular degeneration
#History of aortic stenosis
DVT prophylaxis�subcu Lovenox
DNR
Updated son at bedside 01/10
Total time spent to see the patient on the floor, examine the patient, review data and lab results, discuss treatment plan with patient, nursing staff around 40 minutes.
Physical Exam
General: No acute distress
HEENT: Normocephalic, Atraumatic, EOMI, MMM
Respiratory: Clear to Auscultation bilaterally
Cardiac: Normal S1/S2, Regular Rate and Rhythm
GI: Soft, tender at the right upper quadrant and epigastrium, Nondistended, Normal Bowel Sounds
Extremities: No Clubbing, Cyanosis, or Edema
Neuro: Nonfocal/Grossly Intact
Anticipated Discharge: 24 - 48 hours
Subjective/Interval History
-
Date of Service: January 10, 2025
Patient continues to have severe postprandial pain. Denies nausea, denies vomiting. No chest pain, no shortness of breath. No fever.
Objective Data
-
Labs:
Laboratory Results
01/10/25
08:56
WBC 8.9
Hgb 12.5 L
Hct 36.6 L
Plt Count 272
Sodium 133 L
Potassium 4.6
Chloride 102
Carbon Dioxide 24
BUN 13
Creatinine 0.7
Glucose 119 H
Calcium 9.0
Total Bilirubin 0.7
AST 26
ALT 26
Alkaline Phosphatase 169 H
Vital Signs:
Vital Signs
Temp Pulse Resp BP Pulse Ox
98.3 F 59 16 129/62 96
01/10/25 07:05 01/10/25 07:05 01/10/25 07:05 01/10/25 07:05 01/10/25 11:51
I&O
01/09/25 01/10/25 01/11/25
06:59 06:59 06:59
Intake Total 680 / 680
Balance 680 / 680
--- NOTE | 2025-01-11 09:35 | W.PN.GI.CBS2 ---
Today's Communication / Plan
-
Low fat diet and NPO past MN for EGD in AM
CCY timing per surgery if EGD neg
Assessment / Plan
-
1. Abdominal pain mostly in the right upper quadrant associated with symptoms of loss of appetite, bloating and also early satiety for the past 3 weeks which could be related to biliary colic and also probable PUD, less likely neoplasm. He has had
a 10 pound weight loss also over the past [address] Galindo and Dr. San and Dr. Plascencia. He does have a known kidney mass doubt that this is causing his pain for the past 3 weeks. Will need an eventual MRI will defer to
urology. had abdomen ultrasound results (P) and most likely will need cholecystectomy timing per surgery. EGD in AM. Continue Protonix. He was on aspirin. After his stroke in June he was on aspirin and Plavix for 21 days and then subsequently
was taken off Plavix. LFTs are mostly unremarkable except for elevated alkaline phosphatase level. Will get hepatitis serologies and GGT and if continues to rise may need to hold his statin
2. Constipation chronic will start him on MiraLAX daily and senna.
3. Stable pulmonary nodule and he had a PET scan for this also in the past
4. Kidney mass and kidney cysts follows up regularly with urology known to Dr. Mao as outpatient
Subjective
Subjective
Date of Service: January 11, 2025
Still with right upper quadrant pain, no nausea or vomiting, labs are currently pending, remains afebrile
Objective
Data Reviewed
Laboratory Data:
Laboratory Results
Total Bilirubin 0.7 mg/dl (0.2-1.3) 01/10/25 08:56
AST 26 U/L (17-59) 01/10/25 08:56
ALT 26 U/L (0-50) 01/10/25 08:56
Alkaline Phosphatase 169 U/L (38-126) H 01/10/25 08:56
Lipase 135 U/L (23-300) 01/09/25 12:08
Vital Signs and I&O:
Vital Signs
Temp Pulse Resp BP Pulse Ox
99.4 F 67 16 130/61 95
01/10/25 23:00 01/10/25 23:00 01/10/25 23:00 01/10/25 23:00 01/10/25 23:00
I&O
01/10/25 01/11/25 01/12/25
06:59 06:59 06:59
Intake Total 680 / 680 864 / 864
Balance 680 / 680 864 / 864
Physical Exam
Physical Exam
Cardiology: Normal Sinus Rhythm and Murmur (ZAHRA)
GI: Soft, Non Distended and Tender (RUQ and epigastric)
[2025-01-11] MEDS: LOW STRENGTH ASPIRIN 81 MG PO (09:40)
[2025-01-11] MEDS: NSS (PRESERVATIVE FREE) 10 ML IV (09:41)
[2025-01-11] MEDS: MUCINEX 600 MG PO ×2 (09:41→20:17)
[2025-01-11] MEDS: OCUVITE SOFTGEL 1 CAP PO ×2 (09:41→20:17)
[2025-01-11 09:52] LABS: Hematocrit 38.1 % (39.0-52.0); Hemoglobin 12.9 g/dL (13.0-18.0); Mean Corp Hgb Conc. 33.9 g/dL (33.0-37.0); Mean Corpuscular Volume 87.2 fL (80.0-94.0); Nucleated Red Blood Cells % 0 % (-); Platelet Count 278 10^3/uL (130-400); Red Cell Dist. Width 11.8 % (11.5-14.5)
[2025-01-11] MEDS: PROTONIX IV 40 MG IV (09:57)
--- NOTE | 2025-01-11 10:00 | W.PN.URO.CBU ---
Today's Communication / Plan
-
await gi testing no gu intervention needed
Assessment / Plan
-
renal masses can cause pain but generally constant and in back often with hematuria and generally not post prandial Await gi testing schedul;ed for tomorrow
Diagnosis
-
Date of Service: January 11, 2025
-
Patient Diagnosis:
Post Op Day:
Patient Diagnosis:
known rt renal mas followe d with u/s for complex cyst possible rcca now mass grown also pt presents with intermittent ruq pain brought on with food or water gall stones also seen
Post Op Day:
Subjective
-
post prandial discomfort no flank pain
Objective
-
Vital Signs
Temp Pulse Resp BP Pulse Ox
99.4 F 67 16 130/61 95
01/10/25 23:00 01/10/25 23:00 01/10/25 23:00 01/10/25 23:00 01/10/25 23:00
Intake and Output
01/10/25 01/11/25 01/12/25
06:59 06:59 06:59
Intake Total 680 / 680 864 / 864
Balance 680 / 680 864 / 864
Intake:
Oral fluids 480 / 480 600 / 600
IV fluids (Total) 24 /
IV piggybacks 200 / 200 240 / 240
Other:
How many times incontinent 0
MODERATE amount urine
Number of approximated MODERATE 1 2
amounts of urine
Laboratory Results
01/11/25 09:29
Review of Systems
-
: No Symptoms
Physical Exam
-
General - well developed, well nourished, no acute distress
Chest - clear bilaterally
Abdomen - soft, non-tender, positive bowel sounds, no CVAT, no incisional pain or distention
Genitalia - normal
Rectal - normal
Skin - warm & dry with no rash
Neuro - AOx3, no motor deficits
Extremities - no clubbing, no cyanosis, no edema
Incision - clean, dry
Dressing - clean, dry, intact
Care Review
Data Reviewed
Discussed with: Nursing and Other (general surgery)
[2025-01-11 10:10] LABS: ALT (SGPT) 23 U/L (0-50); AST (SGOT) 23 U/L (17-59); Albumin 3.4 g/dl (3.5-5.0); Alkaline Phosphatase 171 U/L (38-126); Blood Urea Nitrogen 13 mg/dl (9-20); Calcium 8.8 mg/dl (8.4-10.2); Carbon Dioxide 23 mmol/L (22-30); Chloride 102 mmol/L (98-107); Estimated Creatinine Clearance 65 ml/min; GGTP 56 U/L (15-73); Glucose 142 mg/dl (70-99); Potassium 4.3 mmol/L (3.5-5.1); Sodium 133 mmol/L (135-145); Total Protein 6.5 g/dl (6.3-8.2); eGFR > 60.00
--- NOTE | 2025-01-11 11:04 | W.PN.UPDATE ---
Update Note
Progress Note Update
Discussed with Dr. San and Dr. Galindo surgery reviewed ultrasound and planning for cholecystectomy today, patient already made n.p.o. hold on diet
[2025-01-11 13:05] LABS: Hepatitis A Antibody, Total Negative (Negative); Hepatitis B Surface Antigen Negative (Negative); Hepatitis C Antibody Negative (Negative)
--- NOTE | 2025-01-11 14:02 | W.IMMPOSTOP ---
Surgical Immed Post Op Note
-
Primary Surgeon: Mena
Pre-op Diagnosis: Biliary colic
Post-op Diagnosis: Same
Procedure Performed: Robotic cholecystectomy
Anesthesia Type: GETA
Specimen / Cultures: Gallbladder, omentum
Estimated Blood Loss: 10cc
Complications: None immediate
Operative Findings: Softly distended gallbladder, minor spillage of bile but no stones; peritoneal and omental studding involving gallbladder as well
ST changes intra-op
Sonj updated by phone and all findings discussed
--- NOTE | 2025-01-11 14:05 | OR.RPT ---
Operative Report
Operative Report
Primary Surgeon: Mena
Pre-op Diagnosis: Biliary colic
Post-op Diagnosis: Same
Procedure Performed: Robotic cholecystectomy
Anesthesia Type: GETA
Specimen / Cultures: Gallbladder, omentum
Estimated Blood Loss: 10cc
Complications: None immediate
Operative Findings: Softly distended gallbladder, minor spillage of bile but no stones; peritoneal and omental studding involving gallbladder as well
DOS: 01/11/25
Indications: This 89M developed right upper quadrant/epigastric pain and on workup was found to have cholelithiasis with liver function studies and a normal size common duct. He has a known right renal mass but given his symptoms of postprandial
abdominal pain it was felt his gallbladder was the source of his symptoms. Laparoscopic cholecystectomy with robotic assist was elected.
Description of procedure: The patient was placed on the operating table in the supine position. General anesthesia was induced. A time-out was completed verifying correct patient, procedure, site, positioning, and special equipment prior to
beginning this procedure. An orogastric tube was placed. The abdomen was prepped and draped in the usual sterile fashion. A stab incision was made in left upper quadrant and the Veress needle was inserted. Proper position was confirmed by aspiration
and saline meniscus test. The abdomen was insufflated with carbon dioxide to a pressure of 12 mmHg. The patient tolerated insufflation well.
An 8mm optical trocar was then inserted in the left upper quadrant. The laparoscope was inserted and the abdomen inspected. No injuries from initial trocar placement or Veress needle insertion were noted. Additional 8mm trocars were then inserted in
the following locations: above the umbilicus, right mid clavicular line at the level of the umbilicus and 6cm lateral to this on the right. The abdomen was inspected and some omental caking and peritoneal studding was was found. Some of the studding
was on the gallbladder surface. The table was placed in the reverse Trendelenburg position with the right side up. The dome of the gallbladder was grasped with an atraumatic grasper and retracted over the dome of the liver. The infundibulum was
also grasped with an atraumatic grasper and retracted toward the right lower quadrant. This maneuver exposed Calot�s triangle. The peritoneum overlying the gallbladder infundibulum was then incised and the cystic duct and cystic artery identified
and circumferentially dissected so that a clear view of the liver was achieved through a window between the cystic duct an cystic artery. At this time, the only two structures going into the gallbladder were the cystic artery and cystic duct.
The cystic duct was then doubly clipped and divided and the and cystic artery was controlled with bipolar and divided. Both structures were taken close to the gallbladder. The gallbladder was then dissected from its peritoneal attachments by
electrocautery. Hemostasis was assured and the gallbladder and contained stones were removed using an endoscopic retrieval bag placed through the umbilical port. The gallbladder was passed off the table as a specimen. An area of omental caking was
resected and also removed through the umbilical port in an endocatch bag. The gallbladder fossa was irrigated with copious sterile saline and hemostasis was assured. There was no evidence of bleeding from the gallbladder fossa or cystic artery or
leakage of the bile from the cystic duct stump. The umbilical trocar site was closed at the fascial level laparoscopically with 2-0 PDS. Secondary trocars were removed under direct vision and noted to be hemostatic. The laparoscope was withdrawn
and the umbilical trocar removed. The abdomen was allowed to collapse. The skin was closed with subcuticular sutures of 4-0 monocryl and topical skin adhesive. The orogastric tube was removed.
The patient tolerated the procedure well and was taken to the postanesthesia care unit in stable condition.
[2025-01-11] MEDS: OFIRMEV 100 IV (14:57)
[2025-01-11] MEDS: DILAUDID 0.25 MG IV (15:08)
[2025-01-11] MEDS: LOVENOX 40 MG SC (17:39)
[2025-01-11] MEDS: CRESTOR 20 MG PO (17:39)
[2025-01-11] MEDS: SENOKOT 17.2 MG PO (22:25)
[2025-01-11] MEDS: ULTRAM 50 MG PO (23:13)
[2025-01-12] VITALS (9 sets, daily range): BP systolic 20–138; BP diastolic 54–76
[2025-01-12 03:44] LABS: Troponin I 0.028 ng/ml
[2025-01-12 07:41] LABS: Hematocrit 37.9 % (39.0-52.0); Hemoglobin 12.9 g/dL (13.0-18.0); Mean Corp Hgb Conc. 34.0 g/dL (33.0-37.0); Mean Corpuscular Volume 85.0 fL (80.0-94.0); Platelet Count 310 10^3/uL (130-400); Red Cell Dist. Width 11.7 % (11.5-14.5)
[2025-01-12 08:10] LABS: Blood Urea Nitrogen 13 mg/dl (9-20); Calcium 8.7 mg/dl (8.4-10.2); Carbon Dioxide 24 mmol/L (22-30); Chloride 102 mmol/L (98-107); Estimated Creatinine Clearance 74 ml/min; Glucose 144 mg/dl (70-99); Magnesium 2.1 mg/dl (1.6-2.3); Potassium 4.3 mmol/L (3.5-5.1); Sodium 134 mmol/L (135-145); eGFR > 60.00
[2025-01-12] MEDS: MUCINEX 600 MG PO (08:12)
[2025-01-12] MEDS: OCUVITE SOFTGEL 1 CAP PO (08:12)
[2025-01-12] MEDS: LOW STRENGTH ASPIRIN 81 MG PO (08:12)
[2025-01-12] MEDS: PROTONIX IV 40 MG IV (08:12)
[2025-01-12] MEDS: NSS (PRESERVATIVE FREE) 10 ML IV (08:12)
--- NOTE | 2025-01-12 09:05 | W.PN.GS2 ---
Today's Communication / Plan
-
OK for DC from surg standpoint
Assessment / Plan
-
89M POD1 s/p rCCY for biliary colic
Pain resolved.
OK for DC home from surgery standpoint
Pls call with ?s
Subjective Data
-
Date of Service: January 12, 2025
AFVSS, pain has resolved, he ate dinner last night, pain free
Objective Data
-
Intake and Output
01/11/25 01/12/25 01/13/25
06:59 06:59 06:59
Intake Total 864 / 864 250 / 250
Balance 864 / 864 250 / 250
Intake:
Oral fluids 600 / 600
IV fluids (Total) 24 / 250 / 250
Normosol 150 / 150
ofirmev 100 / 100
IV piggybacks 240 / 240
Other:
How many times incontinent 0
MODERATE amount urine
Number of approximated MODERATE 2 3
amounts of urine
Vital Signs
Temp Pulse Resp BP Pulse Ox
97.9 F 69 16 118/62 97
01/12/25 07:40 01/12/25 07:40 01/12/25 07:40 01/12/25 07:40 01/12/25 07:40
Lab Results
01/12/25 07:18
01/12/25 07:18
Calcium 8.7 mg/dl (8.4-10.2) 01/12/25 07:18
Phosphorus 3.8 mg/dl (2.5-4.5) 01/12/25 07:18
Magnesium 2.1 mg/dl (1.6-2.3) 01/12/25 07:18
Total Bilirubin 0.9 mg/dl (0.2-1.3) 01/11/25 09:29
AST 23 U/L (17-59) 01/11/25 09:
ALT 23 U/L (0-50) 01/11/25 09:
Alkaline Phosphatase 171 U/L (38-126) H 01/11/25 09:29
Total Protein 6.5 g/dl (6.3-8.2) 01/11/25 09:
Albumin 3.4 g/dl (3.5-5.0) L 01/11/25 09:29
Physical Exam
-
Gen: NAD
Abd: soft, approp ttp, incisons cdi with glue
Patient has a long catheter: No
Patient has a central line: No
--- NOTE | 2025-01-12 11:43 | W.PN.URO.CBU ---
Today's Communication / Plan
-
no gu sxs
Assessment / Plan
-
renal masses can cause pain but generally constant and in back often with hematuria and generally not post prandial Await path
Diagnosis
-
Date of Service: January 12, 2025
-
Patient Diagnosis:
Post Op Day:
Patient Diagnosis:
Post Op Day:
Patient Diagnosis:
known rt renal mas followe d with u/s for complex cyst possible rcca now mass grown also pt presents with intermittent ruq pain brought on with food or water gall stones also seen
Post Op Day:
Subjective
-
min pain post op
Objective
-
Vital Signs
Temp Pulse Resp BP Pulse Ox
97.7 F 62 16 121/54 96
01/12/25 10:44 01/12/25 10:44 01/12/25 10:44 01/12/25 10:44 01/12/25 10:44
Intake and Output
01/11/25 01/12/25 01/13/25
06:59 06:59 06:59
Intake Total 864 / 864 250 / 250
Balance 864 / 864 250 / 250
Intake:
Oral fluids 600 / 600
IV fluids (Total) 24 / 24 250 / 250
Normosol 150 / 150
ofirmev 100 / 100
IV piggybacks 240 / 240
Other:
How many times incontinent 0
MODERATE amount urine
Number of approximated MODERATE 2 3
amounts of urine
Laboratory Results
01/12/25 07:18
01/12/25 07:18
Review of Systems
-
: No Symptoms
Physical Exam
-
General - well developed, well nourished, no acute distress
Chest - clear bilaterally
Abdomen - soft, non-tender, positive bowel sounds, no CVAT, no incisional pain or distention
Genitalia - normal
Rectal - normal
Skin - warm & dry with no rash
Neuro - AOx3, no motor deficits
Extremities - no clubbing, no cyanosis, no edema
Incision - clean, dry
Dressing - clean, dry, intact
Care Review
Data Reviewed
Discussed with: Other (general surgery)
--- NOTE | 2025-01-12 13:53 | CM ---
Patient seen at bedside with son
EGD completed
discharge today
discussed VN - patient declined
IMM explained & signed. In chart
PLAN: Home, no needs
son will transport
--- NOTE | 2025-01-12 15:02 | W.DCSUMMARY ---
Discharge Summary
Discharge Data
Date of Admission: 01/09/25
Date of Discharge: 01/12/25
-
Pending Results: Yes (GB and Stomach biopsies result)
Hospital Course
Primary diagnosis:
Biliary colic
Cholelithiasis
s/p laparoscopic cholecystectomy on this admission
Secondary diagnosis:
Hyperlipidemia
History of cerebrovascular accident/transient ischemic attack
Complex renal mass in the right kidney
Hospital course:
Patient presented with nausea every time he eats and drinks and has been losing weight. He had associated right upper quadrant abdominal pain. A CT of the abdomen pelvis showed cholelithiasis without obvious cholecystitis or choledocholithiasis.
Low suspicion for tractable nausea vomiting as well may be biliary colic in nature. Was reviewed by GI and surgery. Went on to have lap cholecystectomy with resolution of GI symptoms. He was tolerating solid diet prior to discharge. He had upper
GI endoscopy which showed 2 small gastric polyps which were biopsied otherwise normal.
Today patient was feeling fine without GI symptoms. Tolerated solid diet. Abdomen was soft and nontender. Did not require any pain medication. Afebrile. Blood pressure 05/13/1975. Ambulated on the floor without issues. He was discharged home
to follow-up with surgery as an outpatient.
Consultants on board:
General Surgery-Leeroy Black
GI-Karmen Duran
Discharge Plan
-
Patient Disposition: Home (Routine Discharge)
Discharge Diagnosis/Procedures: Biliary colic s/p lap moy; Gastric polyps; Known renal mass
Diet: As tolerated and Regular
Activity: No strenuous activity
Additional Activity: Do not lift over 20lbs for the next 2-3 weeks
Driving Restrictions: Not until seen by your Dr
Bathing Restrictions: OK to Shower
Wound Care: Allow the glue to flake off your incisions on its own over the next 2-3 weeks. Avoid scrubbing or picking off.
Call your surgeon if you have fevers >100.5, nausea with vomiting or worsening abdominal pain.
Activity Restrictions/Additional Instructions:
You have a 2 cm pulmonary nodule in your right lung. Recommend you follow-up with pulmonology in the office.
You have a 3 cm mass in your right kidney. You need an outpatient abdominal MRI. Recommend you follow-up with urology in the office.
Referrals:
Ricardo Plascencia MD [Active, Urology] - in two to three weeks
Tiffanie Zavala DO [Active, Pulmonary Medicine] - in three to four weeks
Gunjan Maya DO [Family Provider, Internal Medicine] - in one week
Leeroy San MD [Active, Surgical] - in two to four weeks
Prescriptions:
New
acetaminophen 325 mg Tablet
650 mg PO Q4HPRN PRN (Reason: if temp > 101 F) Qty: 1 0RF
Continued
ascorbic acid (vitamin C) [Vitamin C] 500 MG tablet
500 mg PO Q48H
PreserVision AREDS-2 1 EACH capsule
1 tab PO BID
cholecalciferol (vitamin D3) 2,000 UNITS tablet
2,000 unit PO Q48H
aspirin 81 mg Tablet,Chewable
81 mg PO DAILY Qty: 30 0RF
rosuvastatin 20 mg Tablet
20 mg PO QPM Qty: 30 0RF
Discharge Orders:
Discharge Patient (As Directed); Ordered 01/12/25
Ordered By: Kenyon Randolph
Discharge Date and Time
Discharge Date/Time: 01/12/25 14:34
Print Language: TOGOLESE
== END 2025-01-12 14:34 | disposition home or self-care (01) | DRG 418 ==
LOC: 2 SOUTH 20:45
PROVIDERS: Emergency Medicine; Family Medicine; Registered Nurse; ADMITTING PHYSICIAN Internal Medicine; ATTENDING PHYSICIAN Internal Medicine; CONSULT PHYSICIAN Internal Medicine Gastroenterology; CONSULT PHYSICIAN Specialist; CONSULT PHYSICIAN Surgery; EMERGENCY PHYSICIAN Emergency Medicine; FAMILY PHYSICIAN Internal Medicine
PROC: 8E0W4CZ Robotic Assisted Procedure of Trunk Region, Percutaneous Endoscopic Approach (ICD-10-PCS; 2025-01-11)
PROC: 0FT44ZZ Resection of Gallbladder, Percutaneous Endoscopic Approach (ICD-10-PCS; 2025-01-11)
PROC: 0DB68ZX Excision of Stomach, Via Natural or Artificial Opening Endoscopic, Diagnostic (ICD-10-PCS; 2025-01-12)
DX: K80.10 Calculus of gallbladder with chronic cholecystitis without obstruction (principal); C64.9 Malignant neoplasm of unspecified kidney, except renal pelvis; E87.1 Hypo-osmolality and hyponatremia; K59.09 Other constipation; E78.00 Pure hypercholesterolemia, unspecified; H35.30 Unspecified macular degeneration; I35.0 Nonrheumatic aortic (valve) stenosis; N28.1 Cyst of kidney, acquired; K82.8 Other specified diseases of gallbladder; I45.10 Unspecified right bundle-branch block; R63.4 Abnormal weight loss; K31.7 Polyp of stomach and duodenum; R91.1 Solitary pulmonary nodule; Z60.2 Problems related to living alone; Z66 Do not resuscitate; Z79.82 Long term (current) use of aspirin; Z87.442 Personal history of urinary calculi; Z86.73 Personal history of transient ischemic attack (TIA), and cerebral infarction without residual deficits; Z88.8 Allergy status to other drugs, medicaments and biological substances
CPT/HCPCS: 71046; 74177; 76705; 80048; 80053; 81003; 81015; 82977; 83690; 83735; 84100; 84145; 84484; 85025; 85027; 86704; 86706; 86708; 86803; 87340; 87449; 87899; 88305; 88341; 88342; 93005; 99285; Q9967

== ENCOUNTER 2025-01-18 02:27 | Inpatient (IN) | payer OTHER, SELFPAY ==
[2025-01-17 21:19] VITALS: BP 115/79
[2025-01-17 21:43] LABS: Hematocrit 40.1 % (39.0-52.0); Hemoglobin 13.9 g/dL (13.0-18.0); Mean Corp Hgb Conc. 34.7 g/dL (33.0-37.0); Mean Corpuscular Volume 83.7 fL (80.0-94.0); Nucleated Red Blood Cells % 0 % (-); Platelet Count 458 10^3/uL (130-400); Red Cell Dist. Width 11.9 % (11.5-14.5)
[2025-01-17 22:12] VITALS: BP 120/88
--- NOTE | 2025-01-17 22:17 | ED.GENMED ---
History of Present Illness
<Dot Mueller NP - Last Filed: 01/18/25 02:20>
General
Chief Complaint: Abdominal Symptoms
Source: patient and family (son)
Time Seen by Provider: 01/17/25 22:07
History of Present Illness
History of Present Illness:
Patient to ED iwth report of abdominal pain, n/v. Symptoms started today and continue to worsen. Denies fever/chills. Brought to ED by son for eval. Cholecystectomy 01/11
Past History
<Dot Mueller NP - Last Filed: 01/18/25 02:20>
Past History
ED Past Medical History: CVA, Hypercholesterolemia, Other (Macular degeneration) and Other (Aortic stenosis)
ED Past Surgical History: Cholecystectomy (01/11) and Orthopedic
Social History
Tobacco: Non-smoker
Alcohol: None
Drug: None
Personal: Other
Living: other
Employment: Other
Family History
Family History: Other
Review of Systems
<Dot Mueller NP - Last Filed: 01/18/25 02:20>
Review of Systems
Allergies reviewed?: Yes
All Other Systems: ROS reviewed and negative except as documented in HPI and ROS
Constitutional: Reports no symptoms
EENT: Reports no symptoms
Respiratory: Reports no symptoms
Cardiac: Reports no symptoms
ABD/GI: Reports abdominal pain, nausea and vomiting
: Reports no symptoms
Musculoskeletal: Reports no symptoms
Skin: Reports no symptoms
Neurological: Reports no symptoms
Psychiatric: Reports no symptoms
Phy Exam
<Dot Mueller NP - Last Filed: 01/18/25 02:20>
General Physical Exam
General Presentation: moderate distress
General age: appears stated age
General Skin: warm and dry
General Habitus: normal
General Mental: alert
Cardiovascular Exam
Cardiovascular Exam: regular rate/rhythm
Pulmonary Exam
Pulmonary Exam: lungs clear and no respiratory distress
Gastrointestinal Exam
Gastrointestinal Exam: normal bowel sounds and distended
Palpation: generalized: Moderate tenderness
Musculoskeletal Exam
Musculoskeletal Exam: full ROM and neuro vasc intact
Skin Exam
Skin Exam: normal color, warm/dry and no rash
Psychiatric Exam
Psychiatric Exam: normal mood/affect
Course
<Dot Mueller PICKING SUPERVISOR - Last Filed: 01/18/25 02:20>
Orders/Labs/Results
Orders:
Orders
01/17/25 21:29
Complete Blood Count/With Diff Urgent
Comprehensive Metabolic Panel Urgent
Lipase Urgent
01/17/25 22:15
0.9% Sodium Chloride 1000 ml [Nss] 1,000 ml IV BOLUS
HYDROmorphone [Dilaudid] 0.5 mg IV NOW STA
Ondansetron Injectable [Zofran] 4 mg IV NOW STA
01/17/25 22:16
CT Abd/pelvis W Iv Cont Urgent
Comment:
Reason For Exam: abd pain, vomiting, bloating. S/p jeanine x 6days
01/17/25 22:38
Urinalysis Reflex To Culture Urgent
01/18/25 00:17
Piperacillin/Tazo 3.375 Gram [Zosyn] 3.375 gram in 50 ml IV NOW
01/18/25 01:55
Admit/Transfer Patient As Directed
Co-Sign Provider:
Level of Care: Inpatient admission
Assign to:: Telemetry
Physician / Group: Jarred
Diagnosis: N/V s/p Jeanine, ? bile leak
Reason for Telemetry: Arrhythmia
Date to Stop Telemetry: 01/21/25
Time to Stop Telemetry: 11:00
Reason for Hospitalization: N/V s/p Jeanine, ? bile leak
Expected length of stay greater than two midnights?: Yes
ELOS- Estimated Length of Stay in days: 4
I certify the patient meets the requirements for IP care: Yes
PRN Pain Medication Management As Directed
May give lesser potent ordered pain med per pt: Yes
preference::
Protocol:: Medication orders for pain may be administered in a
manner that supports deferring to patient preference
when the pt is:
- Requesting an ordered lesser potent pain medication.
Least to most potent pain medications are defined
as: acetaminophen < NSAID < tramadol < opioids
(morphine, oxycodone, hydromorphone).
- Requesting a lesser dose of the same medication IF
ORDERED.
- Requesting a less intrusive route of administration
if both routes are prescribed by the provider (PO <
IV).
01/18/25 01:56
Code Status As Directed
Resuscitation Status: Full Code
01/18/25 02:10
Code Status As Directed
Resuscitation Status: Do not resuscitate
Reached after discussion with pt or family/Healthcare POA: Yes
DNR Bracelet Application ONCE
01/21/25 11:00
DC Protocol for Telemetry ONCE
Abnormal Lab Results
01/17/25
21:29
WBC 17.5 H 10^3/uL
(4.8-10.8)
Plt Count 458 H D 10^3/uL
(130-400)
Abs Immat Gran (auto) 0.1 H 10^3/uL
(0-0.05)
Absolute Neuts (auto) 15.1 H 10^3/uL
(1.4-6.5)
Absolute Lymphs (auto) 0.8 L 10^3/uL
(1.2-3.4)
Absolute Monos (auto) 1.5 H 10^3/uL
(0.1-0.6)
Immature Gran % 0.6 H %
(0-0.5)
Neutrophils % 86.4 H %
(42.2-75.2)
Lymphocytes % 4.3 L %
(20.5-51.1)
Sodium 130 L mmol/L
(135-145)
Chloride 97 L mmol/L
(98-107)
BUN 23 H mg/dl
(9-20)
Glucose 187 H mg/dl
(70-99)
AST 89 H U/L
(17-59)
ALT 66 H U/L
(0-50)
Alkaline Phosphatase 334 H U/L
(38-126)
Albumin 3.2 L g/dl
(3.5-5.0)
01/17/25 21:29
01/17/25 21:29
Vital Signs
Initial and Last Documented VS:
Initial Vital Signs
Temp Pulse Resp BP Pulse Ox
97.5 F 106 18 115/79 96
01/17/25 21:19 01/17/25 21:19 01/17/25 21:19 01/17/25 21:19 01/17/25 21:19
Last Documented Vital Signs
Temp Pulse Resp BP Pulse Ox
97.5 F 83 19 116/70 93
01/17/25 21:19 01/18/25 01:00 01/18/25 01:00 01/18/25 01:00 01/18/25 01:00
<Ginna Keith DO - Last Filed: 01/18/25 00:43>
Orders/Labs/Results
Orders:
Orders
01/17/25 21:29
Complete Blood Count/With Diff Urgent
Comprehensive Metabolic Panel Urgent
Lipase Urgent
01/17/25 22:15
0.9% Sodium Chloride 1000 ml [Nss] 1,000 ml IV BOLUS
HYDROmorphone [Dilaudid] 0.5 mg IV NOW STA
Ondansetron Injectable [Zofran] 4 mg IV NOW STA
01/17/25 22:16
CT Abd/pelvis W Iv Cont Urgent
Comment:
Reason For Exam: abd pain, vomiting, bloating. S/p jeanine x 6days
01/17/25 22:38
Urinalysis Reflex To Culture Urgent
01/18/25 00:17
Piperacillin/Tazo 3.375 Gram [Zosyn] 3.375 gram in 50 ml IV NOW
01/18/25 01:55
Admit/Transfer Patient As Directed
Co-Sign Provider:
Level of Care: Inpatient admission
Assign to:: Telemetry
Physician / Group: Jarred
Diagnosis: N/V s/p Jeanine, ? bile leak
Reason for Telemetry: Arrhythmia
Date to Stop Telemetry: 01/21/25
Time to Stop Telemetry: 11:00
Reason for Hospitalization: N/V s/p Jeanine, ? bile leak
Expected length of stay greater than two midnights?: Yes
ELOS- Estimated Length of Stay in days: 4
I certify the patient meets the requirements for IP care: Yes
PRN Pain Medication Management As Directed
May give lesser potent ordered pain med per pt: Yes
preference::
Protocol:: Medication orders for pain may be administered in a
manner that supports deferring to patient preference
when the pt is:
- Requesting an ordered lesser potent pain medication.
Least to most potent pain medications are defined
as: acetaminophen < NSAID < tramadol < opioids
(morphine, oxycodone, hydromorphone).
- Requesting a lesser dose of the same medication IF
ORDERED.
- Requesting a less intrusive route of administration
if both routes are prescribed by the provider (PO <
IV).
01/18/25 01:56
Code Status As Directed
Resuscitation Status: Full Code
01/18/25 02:10
Code Status As Directed
Resuscitation Status: Do not resuscitate
Reached after discussion with pt or family/Healthcare POA: Yes
DNR Bracelet Application ONCE
01/21/25 11:00
DC Protocol for Telemetry ONCE
Abnormal Lab Results
01/17/25
21:29
WBC 17.5 H 10^3/uL
(4.8-10.8)
Plt Count 458 H D 10^3/uL
(130-400)
Abs Immat Gran (auto) 0.1 H 10^3/uL
(0-0.05)
Absolute Neuts (auto) 15.1 H 10^3/uL
(1.4-6.5)
Absolute Lymphs (auto) 0.8 L 10^3/uL
(1.2-3.4)
Absolute Monos (auto) 1.5 H 10^3/uL
(0.1-0.6)
Immature Gran % 0.6 H %
(0-0.5)
Neutrophils % 86.4 H %
(42.2-75.2)
Lymphocytes % 4.3 L %
(20.5-51.1)
Sodium 130 L mmol/L
(135-145)
Chloride 97 L mmol/L
(98-107)
BUN 23 H mg/dl
(9-20)
Glucose 187 H mg/dl
(70-99)
AST 89 H U/L
(17-59)
ALT 66 H U/L
(0-50)
Alkaline Phosphatase 334 H U/L
(38-126)
Albumin 3.2 L g/dl
(3.5-5.0)
01/17/25 21:29
01/17/25 21:29
Vital Signs
Initial and Last Documented VS:
Initial Vital Signs
Temp Pulse Resp BP Pulse Ox
97.5 F 106 18 115/79 96
01/17/25 21:19 01/17/25 21:19 01/17/25 21:19 01/17/25 21:19 01/17/25 21:19
Last Documented Vital Signs
Temp Pulse Resp BP Pulse Ox
97.5 F 83 19 116/70 93
01/17/25 21:19 01/18/25 01:00 01/18/25 01:00 01/18/25 01:00 01/18/25 01:00
<Dot Mueller NP - Last Filed: 01/18/25 02:20>
*Radiology
Radiology exam reviewed: radiology read reviewed
*Pulse Oximetry
SaO2: 96
Oxygen Mode of Delivery: Room air
Patient hypoxic: no
*Critical Care Note
Total Time (30-74mins, 75-104mins- exclusive of procedures): Not Applicable
<Dot Mueller NP - Last Filed: 01/18/25 02:20>
Update Note
Update Note:
Patient to ED with report of abdominal distention, generalized abdominal discomfort, nausea and vomiting. Symptoms started this AM. He is 6 days post cholecystectomy. Labs today: WBC 17.5, ast 89, alt 66, alk phos 334. CT report reviewed with
patient and his on. COncern for possible bile leak, ileus vs SBO. Dr. Valdez consulted. WIll admit to hospitalist [facility]. Surgery will see in AM. ANtibiotics started in ED. Case discussed [facility] Dr. Keith who also evaluated this patient. Agrees
to findings and plan.
ED Attending Note
<Dot Mueller NP - Last Filed: 01/18/25 02:20>
-
Portions of this chart may have been created with voice recognition software.� Occasional wrong word or��sound alike� substitutions may have occurred due to the inherent limitations of voice recognition software.
<Ginna Keith DO - Last Filed: 01/18/25 00:43>
ED Attending Note
Patient seen and examined by attending physician: Yes
I performed the substantive portion of visit, reviewed & personally made and approve the management plan that is documented in note by myself or DEBBIE.: Yes
I performed a history and physical exam of patient and discussed management with resident, I reviewed resident's note and agree with documented findings and plan of care.: Yes
ED Attending Note:
89-year-old male with recent history of laparoscopic cholecystectomy on 01/12 presenting to the emergency department for abdominal pain and bloating. Patient reports unremarkable postop period. However today, felt increasingly bloated with upper
abdominal discomfort and bilious emesis. Notes that he had 3 bowel movements today. Denies fever. Vital signs significant for mild tachycardia.
On exam patient in no acute distress, nontoxic. However dry mucous membranes. On abdominal exam, patient's incisional sites are healing well, mild ecchymosis with no erythema. Slight distention to the abdomen with generalized tenderness to the
epigastric and right upper quadrant region of the abdomen. Given vomiting with acute onset of pain, concern for postop issue. Labs show leukocytosis and transaminitis. CT completed which shows concern for biliary leak and postop ileus versus SBO.
Will start broad-spectrum antibiotics and IV fluids. Surgery made aware with plan for admission
Discharge Plan
Departure
Patient Disposition: Admit
Date of Disposition: 01/18/25
Time of Disposition: 00:26
Presentation/result/management discussed w/ accepting MD/DO: Hospitalist
Patient with high blood pressure during this ER visit?: Yes
Condition: Fair
Covid-19: Not Applicable
Discharge Problem:
Vomiting, Bile leak, postoperative
Prescriptions:
No Action
ascorbic acid (vitamin C) [Vitamin C] 500 MG tablet
500 mg PO Q48H
PreserVision AREDS-2 1 EACH capsule
1 tab PO BID
cholecalciferol (vitamin D3) 2,000 UNITS tablet
2,000 unit PO Q48H
aspirin 81 mg Tablet,Chewable
81 mg PO DAILY Qty: 30 0RF
rosuvastatin 20 mg Tablet
20 mg PO QPM Qty: 30 0RF
acetaminophen 325 mg Tablet
650 mg PO Q4HPRN PRN (Reason: if temp > 101 F) Qty: 1 0RF
Referrals:
Gunjan Maya DO [Family Provider, Internal Medicine]
Interventions
Interventions:
*Risk Screen - Suicide Last Done: 01/17/25 21:23
*General Assessment Last Done: 01/17/25 22:28
*Neglect/Abuse Screening Last Done: 01/17/25 21:23
*ED COVID-19 Vaccine History Last Done: 01/17/25 22:28
*ED Influenza Vaccine History Last Done: 01/17/25 22:28
JZ-[id number] Assessment Last Done: 01/17/25 22:28
Discharge Date and Time
Print Language: FAROESE
[2025-01-17 22:21] LABS: ALT (SGPT) 66 U/L (0-50); AST (SGOT) 89 U/L (17-59); Albumin 3.2 g/dl (3.5-5.0); Alkaline Phosphatase 334 U/L (38-126); Blood Urea Nitrogen 23 mg/dl (9-20); Calcium 8.9 mg/dl (8.4-10.2); Carbon Dioxide 24 mmol/L (22-30); Chloride 97 mmol/L (98-107); Glucose 187 mg/dl (70-99); Lipase 99 U/L (23-300); Potassium 4.4 mmol/L (3.5-5.1); Sodium 130 mmol/L (135-145); Total Protein 6.5 g/dl (6.3-8.2); eGFR > 60.00
[2025-01-17 22:28] VITALS: BMI 24.8
[2025-01-17] MEDS: ZOFRAN 4 MG IV (22:42)
[2025-01-17] MEDS: DILAUDID 0.5 MG IV (22:42)
[2025-01-17] MEDS: NSS 1000 IV (22:43)
[2025-01-17 23:20] VITALS: BP 132/70
[2025-01-18] VITALS (8 sets, daily range): BP systolic 116–144; BP diastolic 64–74
[2025-01-18] MEDS: ZOSYN 50 IV ×4 (00:22→17:16)
--- NOTE | 2025-01-18 01:58 | HPS.HSE ---
Family Physician
-
Family Physician: Gunjan Maya
Chief Complaint
-
N/V
History of Present Illness
Patient is an 89y M with PMH significant for aortic stenosis, prior CVA and recent cholecystectomy who presents to ED complaining of heartburn and N/V. Patient was admitted 01/09 - 01/12 for R sided abdominal / flank pain. He underwent robotic
cholecystectomy on 01/11 and EGD on 01/12. Patient states that he felt fairly well for a few days after discharge. He then began to have symptoms of reflux / heartburn. He noted discomfort / burning in the chest and back of the throat. He states
that he has been having normal bowel movements and he moved his bowels at home today.
Today patient developed nausea - initially with 'dry heaves' and followed by multiple episodes of non-bloody, bilious emesis.
He called his Surgeon and presented to the ED for evaluation.
Medical History
Past Medical History
Past Medical History: Reports Other
Additional Past Medical History:
Aortic Stenosis
ASCVD / Prior CVA
Kidney Stones
Renal Cancer
Past Surgical History: Reports Other
Additional Past Surgical History:
Robotic Jeanine (01/11/25)
Cysto / Stent
Shoulder Surgery
Knee Surgery
Social History
Tobacco: Non-smoker
Alcohol: None
Drug: None
Family History
Family History: Not pertinent
Allergies / Home Medications
Allergies reflects when Allergies were last updated in [facility].
Home Medications with original date entered in [facility]
Allergy/Medication List:
Allergies
Allergy/AdvReac Type Severity Reaction Status Date / Time
diphenhydramine (From Allergy Hives Verified 01/17/25 21:22
Benadryl)
Home Medications
ascorbic acid (vitamin C) 500 mg tablet (Vitamin C) 500 mg PO Q48H Supplement 04/19/17
cholecalciferol (vitamin D3) 50 mcg (2,000 unit) tablet 2,000 unit PO Q48H Supplement 04/19/17
vit C 250 mg-vit E 90 mg-zinc 40 mg-copper 1 [id number] capsule (PreserVision AREDS-2) 1 tab PO BID Eye Condition 04/19/17
aspirin 81 mg chewable tablet 81 mg PO DAILY #30 tabs 06/30/24
rosuvastatin 20 mg tablet 20 mg PO QPM #30 tabs 06/30/24
acetaminophen 325 mg tablet 650 mg (2 x 325 mg) PO Q4HPRN PRN if temp > 101 F #1 tab 01/12/25
Review of Systems
-
History Source: Patient
A 12 point ROS was completed and negative except as noted: Yes
Constitutional: Reports Fatigue; Denies Fever or Chills
Respiratory: Denies Cough or Trouble Breathing
Cardiac: Denies Chest Pain or Palpitations
Abdomen/GI: Reports Nausea, Vomiting and Other (heartburn); Denies Abdominal Pain, Bloody Stools or Black Stools
: Denies Dysuria or Frequency
Neurological: Denies Dizzy or Headache
Physical Exam
Vital Signs
Vital Signs
Temp Pulse Resp BP Pulse Ox
97.5 F 83 19 116/70 93
01/17/25 21:19 01/18/25 01:00 01/18/25 01:00 01/18/25 01:00 01/18/25 01:00
Physical Exam
General: Other (89y M in no acute distress. )
HEENT: Other (Dry MM. Neck supple.)
Respiratory: Clear; No Wheezes, Rales or Rhonchi
Cardiac: S1/S2, Regular Rhythm and Murmur (II/ ZAHRA)
GI: Other (Bowel sounds are diminished throughout. Surgical sites healing well. No focal tenderness.)
Musculoskeletal: No Clubbing, No Cyanosis and No Edema
Neuro: AO x 3
Laboratory Results
-
01/17/25 21:
01/17/25:
Laboratory Results
Total Bilirubin 1.2 mg/dl (0.2-1.3) 01/17/25:
AST 89 U/L (17-59) H 01/17/25:
ALT 66 U/L (0-50) H 01/17/25:
Alkaline Phosphatase 334 U/L (38-126) H 01/17/25:
Lipase 99 U/L (23-300) 01/17/25:
Impression/Plan
-
A/P: Patient is an 89y M with PMH significant for prior CVA, aortic stenosis and recent cholecystectomy who presents to ED complaining of heartburn and N/V.
Intractable N/V
s/p Robotic Cholecystectomy 01/[address]
Post-Op Ileus
- Admit for further evaluation and treatment.
- Recurrent N/V and heartburn with CT showing significant amount of edema and free fluid - greater than expected even given recent surgery.
- Cover with empiric abx for now.
- Supportive care with pain control, IVFs, antiemetics, etc.
- Decreased bowel sounds on exam and CT suggests ileus - however, patient reports having normal BM including earlier today. Follow for changes.
- Surgery consulted for additional recommendations.
- ? HIDA scan v return to OR v other.
Renal Cancer
- Biopsy of omentum done during recent cholecystectomy was consistent with extensive carcinoma c/w renal primary.
- Patient has outpatient follow-up scheduled with Urology and Oncology.
ASCVD / Prior CVA
- No new focal deficits / complaints.
Mild Hyponatremia
- Follow for improvement with IVFs.
DVT Prophylaxis: SCDs
Code Status: DNR
[2025-01-18] MEDS: NSS 1000 IV ×2 (03:37→14:58)
[2025-01-18 06:19] LABS: Hematocrit 36.5 % (39.0-52.0); Hemoglobin 12.4 g/dL (13.0-18.0); Mean Corp Hgb Conc. 34.0 g/dL (33.0-37.0); Mean Corpuscular Volume 85.5 fL (80.0-94.0); Platelet Count 376 10^3/uL (130-400); Red Cell Dist. Width 12.0 % (11.5-14.5)
[2025-01-18 06:44] LABS: ALT (SGPT) 54 U/L (0-50); AST (SGOT) 56 U/L (17-59); Albumin 2.7 g/dl (3.5-5.0); Alkaline Phosphatase 256 U/L (38-126); Blood Urea Nitrogen 22 mg/dl (9-20); Calcium 8.2 mg/dl (8.4-10.2); Carbon Dioxide 25 mmol/L (22-30); Chloride 100 mmol/L (98-107); Estimated Creatinine Clearance 65 ml/min; Glucose 139 mg/dl (70-99); Potassium 4.3 mmol/L (3.5-5.1); Sodium 133 mmol/L (135-145); Total Protein 5.6 g/dl (6.3-8.2); eGFR > 60.00
[2025-01-18] MEDS: PROTONIX IV 40 MG IV ×2 (08:10→19:54)
[2025-01-18] MEDS: NSS (PRESERVATIVE FREE) 10 ML IV ×2 (08:10→19:55)
[2025-01-18 08:44] LABS: Urine Character Clear (Clear)
--- NOTE | 2025-01-18 08:51 | W.PN.HOSP.TC ---
Today's Communication/Plan
-
see plan
Assessment / Plan
Assessment / Plan
A/P: Patient is an 89y M with PMH significant for prior CVA, aortic stenosis and recent cholecystectomy 01/11 who presents to ED complaining of heartburn and N/V.
Intractable N/V
s/p Robotic Cholecystectomy 01/[address]
Post-Op Ileus
- Admit for further evaluation and treatment.
- Recurrent N/V and heartburn with CT showing significant amount of edema and free fluid - greater than expected even given recent surgery.
- Cover with empiric abx - IV Zosyn
- Supportive care with pain control, IVFs, antiemetics
- Decreased bowel sounds on exam and CT suggests ileus - however, patient reports having normal BM including earlier today. Follow for changes.
- Surgery consulted for additional recommendations.
-NPO until surgery eval
- ? HIDA scan v return to OR v other.
Renal Cancer
- Biopsy of omentum done during recent cholecystectomy was consistent with extensive carcinoma c/w renal primary.
- Patient has outpatient follow-up scheduled with Urology and Oncology.
ASCVD / Prior CVA
- No new focal deficits / complaints.
Mild Hyponatremia
- Follow for improvement with IVFs.
DVT Prophylaxis: SCDs
Code Status: DNR
Anticipated Discharge: 24 - 48 hours
Subjective/Interval History
-
Date of Service: January 18, 2025
Objective Data
-
Labs:
Laboratory Results
01/17/25 01/18/25
21:29 05:57
WBC 17.5 H 14.0 H
Hgb 13.9 12.4 L
Hct 40.1 36.5 L
Plt Count 458 H D 376
Sodium 130 L 133 L
Potassium 4.4 4.3
Chloride 97 L 100
Carbon Dioxide 24 25
BUN 23 H 22 H
Creatinine 0.8 0.8
Glucose 187 H 139 H
Calcium 8.9 8.2 L
Total Bilirubin 1.2 1.2
AST 89 H 56
ALT 66 H 54 H
Alkaline Phosphatase 334 H 256 H
Vital Signs:
Vital Signs
Temp Pulse Resp BP Pulse Ox
97.3 F 77 16 129/66 95
01/18/25 08:09 01/18/25 08:09 01/18/25 08:09 01/18/25 08:09 01/18/25 08:09
I&O
01/17/25 01/18/25 01/19/25
06:59 06:59 06:59
Output Total 300 / 300
Balance -300 / -300
[2025-01-18 09:02] LABS: Urine Red Blood Cell 0-2 /HPF (0-2); Urine White Cell 0-2 /HPF (0-5)
--- NOTE | 2025-01-18 10:55 | CON.GS ---
Consultation
-
Date/Time Consultation Performed: 01/18/25 0915
Medical History
-
Chief Complaint: n/v/epigastric pain
History of Present Illness:
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
10lb weight lass. CT imaging at that time with concern for right renal cell carcinoma with outpatient urologic follow up planned. Gallstones were present and given ongoing symptoms and concern for biliary colic he was taken for robotic
cholecystectomy with peritoneal and omental studding involving the gallbladder noted intraoperatively that appeared to be metastatic disease which was subsequently confirmed on pathology with metastatic pathology most consistent with renal as
primary site. EGD was also done in work up that admission without significant findings. He was tolerating PO intake with noted improvement in symptoms and was discharged to continue his recovery. He presents this admission n/v and epigastric
discomfort once again. He reports he continues to pass flatus and some loose stools. He denies fevers or chills.
Past Medical History
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
Past Surgical History: Orthopedic (knee) and Urological (ureteroscopy and eswl for stones)
Social History
Tobacco: Non-Smoker
Alcohol: Occasional
Living: Assisted Living ([facility]'s choice)
Family History
Family History: Reviewed & Not Pertinent
Allergies / Home Medications
Allergy/AdvReac Type Severity Reaction Status Date / Time
diphenhydramine (From Allergy Hives Verified 01/17/25 21:22
Benadryl)
�Medication �Instructions �Recorded �Confirmed �Type
ascorbic acid (vitamin C) 500 mg 500 mg PO Q48H Supplement 04/19/17 01/17/25 History
tablet (Vitamin C)
cholecalciferol (vitamin D3) 50 2,000 unit PO Q48H Supplement 04/19/17 01/17/25 History
mcg (2,000 unit) tablet
vit C 250 mg-vit E 90 mg-zinc 40 1 tab PO BID Eye Condition 04/19/17 01/17/25 History
mg-copper 1 [id number]
capsule (PreserVision AREDS-2)
aspirin 81 mg chewable tablet 81 mg PO DAILY #30 tabs 06/30/24 01/17/25 Rx
rosuvastatin 20 mg tablet 20 mg PO QPM #30 tabs 06/30/24 01/17/25 Rx
acetaminophen 325 mg tablet 650 mg (2 x 325 mg) PO Q4HPRN PRN 01/12/25 01/17/25 Rx
if temp > 101 F #1 tab
Review of Systems
-
History Source: Patient and Family
All other systems: Negative unless noted
A 10 point review of systems was completed, and was negative except as per HPI.
Physical Exam
Vital Signs
Temp Pulse Resp BP Pulse Ox
97.3 F 77 16 129/66 95
01/18/25 08:09 01/18/25 08:09 01/18/25 08:09 01/18/25 08:09 01/18/25 08:09
01/17/25 01/18/25 01/19/25
06:59 06:59 06:59
Actual Weight 76 kg
Body Mass Index (BMI) 24.8
Lab Results
01/18/25 05:57
01/18/25 05:57
WBC 14.0 10^3/uL (4.8-10.8) H 01/18/25 05:57
Hgb 12.4 g/dL (13.0-18.0) L 01/18/25 05:57
Hct 36.5 % (39.0-52.0) L 01/18/25 05:57
Plt Count 376 10^3/uL (130-400) 01/18/25 05:57
Abs Immat Gran (auto) 0.1 10^3/uL (0-0.05) H 01/17/25 21:29
Neutrophils % 86.4 % (42.2-75.2) H 01/17/25 21:29
Physical Exam
General: No Apparent Distress
HEENT: Normocephalic and Moist Mucous Membranes
Respiratory: Non Labored Respirations
GI: Soft, Tender (mild and generalized), Distended (mild to mod) and Incisions (intact glue, well approximated)
Skin: Warm and Dry
Neuro: Awake, Alert and AO x 3
Psych: Calm
Data Reviewed
-
CT Scan: Image Personally Visualized and interpreted, Report Reviewed by me, Discussed with Physician, Discussed with Patient and Discussed with Family
Labs: Labs Reviewed by me, Discussed with Physician, Discussed with Patient and Discussed with Family
Old Records: Reviewed
Assessment / Plan
-
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
10lb weight lass. CT imaging at that time with concern for right renal cell carcinoma with outpatient urologic follow up planned. Taken for robotic cholecystectomy on 01/11 given concern for biliary colic with mild chronic cholecystitis present but
with peritoneal and omental studding involving the gallbladder noted intraoperatively that appeared to be metastatic disease which was subsequently confirmed on pathology with metastatic pathology most consistent with renal as primary site. EGD 01/12
without significant findings.
He was tolerating PO intake with noted improvement in symptoms and was discharged to continue his recovery. He presents this admission n/v and epigastric discomfort once again which has gradually been worsening. Incisions healing well. He reports he
continues to pass flatus and had some loose stools yesterday. He denies fevers or chills. CT imaging with free abdominal fluid/ascites present. No significant fluid collection within the gallbladder fossa that would indicate biloma/leak. Suspect
intraabdominal fluid secondary to not only recent surgery but ?metastatic disease as well. Small right hepatic foci noted as well which may be consistent with metastatic implants. Possible ileus on imaging as well given SB distention. Soft tissue
stranding of the anterior right perinephric fat as well as a cystic mass of the right kidney consistent with known renal ca.
Plan:
Ok for clears from GS perspective
HIDA to r/o bile leak
GI consulted to assist with management
Analgesics/antiemetics as needed
Medical management as per primary team
Has OP follow up scheduled with onc and urology Sunday.
--- NOTE | 2025-01-18 14:47 | CON.GI ---
Consultation
-
Date/Time Consultation Requested: 01/18/2025, 9am
Date/Time Consultation Performed: 01/18/2025, 5pm
Requesting Provider: Mary Ann Bradshaw CRNA
Performing Provider: Dr. Sullivan
Reason for Consultation: nausea, vomiting, concern for bile leak
Medical History
Chief Complaint / HPI
Chief Complaint: n/v
History of Present Illness:
89-year-old male past medical history of aortic stenosis, prior stroke, recent cholecystectomy, recent diagnosis of renal cancer with involvement of omentum presenting with heartburn, nausea, vomiting. He had a recent admission on January 09 to
January 12. At that time, he did undergo an open endoscopy on January [address] Guzman for epigastric pain, early satiety, right upper quadrant pain at that time found to have gastric polyps otherwise normal exam. During that admission, he
also underwent a robotic cholecystectomy on January 11 and during the procedure there was omental caking which was biopsied and showed to be extensive metastatic carcinoma with renal primary.
This admission, he was found to have a leukocytosis to 17.5, total bilirubin normal 1.2, AST today 56, ALT 54, alkaline phosphatase 256. He underwent a CT abdomen pelvis which showed postsurgical changes related to cholecystectomy, moderate ascites
and generalized edema more than expected for postop state could represent infection versus bile leak. Consider HIDA. Postop ileus versus early small bowel obstruction. Stable pulmonary mass. Renal cystic lesions. Few subcentimeter indeterminate
hepatic foci could not fully characterize could be microabscesses cannot rule out recommend clinical correlation and close imaging follow-up.
On discussion with pt and daughter immediately after surgery felt well. Then slowly started having abd pain (seems to be diffuse also in chest), reflux and nausea. No f/c. Poor appetite. Initially post-op was eating well.
Past Medical History
Past Medical History: CVA, Hypercholesterolemia and Valvular Disease ()
Past Surgical History: Cholecystectomy and Orthopedic
Social History
Tobacco: Non-Smoker
Alcohol: Occasional
Drug: None
Living: Other ([facility])
Family History
Family History: Reviewed & Not Pertinent
Allergies / Home Medications
Allergy/AdvReac Type Severity Reaction Status Date / Time
diphenhydramine (From Allergy Hives Verified 01/17/25 21:22
Benadryl)
�Medication �Instructions �Recorded
ascorbic acid (vitamin C) 500 mg 500 mg PO Q48H Supplement 04/19/17
tablet (Vitamin C)
cholecalciferol (vitamin D3) 50 2,000 unit PO Q48H Supplement 04/19/17
mcg (2,000 unit) tablet
vit C 250 mg-vit E 90 mg-zinc 40 1 tab PO BID Eye Condition 04/19/17
mg-copper 1 [id number]
capsule (PreserVision AREDS-2)
aspirin 81 mg chewable tablet 81 mg PO DAILY #30 tabs 06/30/24
rosuvastatin 20 mg tablet 20 mg PO QPM #30 tabs 06/30/24
acetaminophen 325 mg tablet 650 mg (2 x 325 mg) PO Q4HPRN PRN 01/12/25
if temp > 101 F #1 tab
Review of Systems
-
All other systems: A 12 pt ROS was Negative except as stated above in HPI
Vital Signs
Temp Pulse Resp BP Pulse Ox
97.6 F 72 16 144/70 96
01/18/25 11:05 01/18/25 11:05 01/18/25 11:05 01/18/25 11:05 01/18/25 11:05
Physical Exam
Exam
General: Well Developed
HEENT: Normocephalic
Respiratory: Clear
Cardiac: S1/S2
GI: Non Distended and Tender
Musculoskeletal: No Clubbing
Skin: Warm
Neuro: AO x 3
Hematologic/Lymphatic: No Lymphadenopathy
Psych: Calm
Results
WBC 14.0 10^3/uL (4.8-10.8) H 01/18/25 05:57
Hgb 12.4 g/dL (13.0-18.0) L 01/18/25 05:57
Hct 36.5 % (39.0-52.0) L 01/18/25 05:57
MCV 85.5 fL (80.0-94.0) 01/18/25 05:57
Plt Count 376 10^3/uL (130-400) 01/18/25 05:57
Absolute Neuts (auto) 15.1 10^3/uL (1.4-6.5) H 01/17/25 21:29
Sodium 133 mmol/L (135-145) L 01/18/25 05:57
Potassium 4.3 mmol/L (3.5-5.1) 01/18/25 05:57
Chloride 100 mmol/L (98-107) 01/18/25 05:57
Carbon Dioxide 25 mmol/L (22-30) 01/18/25 05:57
BUN 22 mg/dl (9-20) H 01/18/25 05:57
Creatinine 0.8 mg/dL (0.7-1.3) 01/18/25 05:57
Calcium 8.2 mg/dl (8.4-10.2) L 01/18/25 05:57
Total Bilirubin 1.2 mg/dl (0.2-1.3) 01/18/25 05:57
AST 56 U/L (17-59) 01/18/25 05:57
ALT 54 U/L (0-50) H 01/18/25 05:57
Alkaline Phosphatase 256 U/L (38-126) H 01/18/25 05:57
Lipase 99 U/L (23-300) 01/17/25 21:29
Diagnostic Image Results:
Prior GI Procedures:
EGD:
Colonoscopy:
Assessment / Plan
-
89-year-old male past medical history of aortic stenosis, recent cholecystectomy which he was found to have metastatic renal cancer to omentum presenting with persistent heartburn, epigastric pain. He had an EGD done last week. CT had questionable
collection could be related to bile leak. I discussed with surgery plan for HIDA scan. In the interim, we will increase his Protonix to twice a day and can trial him on a clear liquid diet. Can add on pepcid if needed for reflux. Further
recommendations pending HIDA.
-
-
Thank you for consultation and allowing me to participate in the patient's care. Please call the dispersion mixer GI physician during the after hours with any questions or concerns.
[2025-01-19] MEDS: ZOSYN 50 IV ×5 (00:51→23:31)
[2025-01-19] MEDS: NSS 1000 IV (01:40)
[2025-01-19] MEDS: DILAUDID 0.5 MG IV ×3 (05:29→19:41)
[2025-01-19 06:05] VITALS: BMI 24.7
[2025-01-19 07:15] VITALS: BP 126/71
[2025-01-19 07:17] LABS: Hematocrit 36.7 % (39.0-52.0); Hemoglobin 12.3 g/dL (13.0-18.0); Mean Corp Hgb Conc. 33.5 g/dL (33.0-37.0); Mean Corpuscular Volume 86.2 fL (80.0-94.0); Nucleated Red Blood Cells % 0 % (-); Platelet Count 392 10^3/uL (130-400); Red Cell Dist. Width 12.1 % (11.5-14.5)
[2025-01-19 07:27] LABS: ALT (SGPT) 45 U/L (0-50); AST (SGOT) 47 U/L (17-59); Albumin 2.5 g/dl (3.5-5.0); Alkaline Phosphatase 247 U/L (38-126); Blood Urea Nitrogen 18 mg/dl (9-20); Calcium 8.1 mg/dl (8.4-10.2); Carbon Dioxide 25 mmol/L (22-30); Chloride 104 mmol/L (98-107); Estimated Creatinine Clearance 65 ml/min; Glucose 143 mg/dl (70-99); Magnesium 1.8 mg/dl (1.6-2.3); Potassium 3.9 mmol/L (3.5-5.1); Sodium 135 mmol/L (135-145); Total Protein 5.4 g/dl (6.3-8.2); eGFR > 60.00
[2025-01-19] MEDS: NSS (PRESERVATIVE FREE) 10 ML IV ×2 (09:02→19:42)
[2025-01-19] MEDS: PROTONIX IV 40 MG IV ×2 (09:02→19:42)
--- NOTE | 2025-01-19 09:12 | W.PN.GS2 ---
Addendum entered and electronically signed by Leeroy San MD 01/19/25 13:17:
HIDA reviewed, negative for leak or obstruction. SBFT ordered. D/w son by phone. All ?s answered.
Original Note:
Today's Communication / Plan
-
HIDA
eventual SBFT
Assessment / Plan
-
89M POD8 s/p RAL CCY with peritoneal studding and omental caking positive for adenoCA most likely renal origin
AFVSS, depressed mood
LFTs normalized
WBC trending down
CT with dilated small bowel and small amount free fluid low in the abdomen
Suspect malignant pSBO
Plan:
HIDA to r/o leak
If negative, proceed with SBFT to evaluate for pSBO
Heme/Onc consult
Urology consult
Empiric abx
Will follow
Subjective Data
-
Date of Service: January 19, 2025
AFVSS, in poor spirits, pain improved, passing BMs, unclear if passing flatus
Objective Data
-
Intake and Output
01/18/25 01/19/25 01/20/25
06:59 06:59 06:59
Intake Total 1100 / 1100
Output Total 575 / 575
Balance 525 / 525
Intake:
IV fluids (Total) 1000 / 1000
IV piggybacks 100 / 100
Output:
Urine, Voided 575 / 575
Vital Signs
Temp Pulse Resp BP Pulse Ox
97.6 F 76 16 126/71 94
01/19/25 07:15 01/19/25 07:15 01/19/25 07:15 01/19/25 07:15 01/19/25 07:15
Lab Results
01/19/25 06:13
01/19/25 06:13
Calcium 8.1 mg/dl (8.4-10.2) L 01/19/25 06:13
Magnesium 1.8 mg/dl (1.6-2.3) 01/19/25 06:13
Total Bilirubin 0.9 mg/dl (0.2-1.3) 01/19/25 06:13
Direct Bilirubin 0.6 mg/dl (0.0-0.4) H 01/18/25 05:57
AST 47 U/L (17-59) 01/19/25 06:13
ALT 45 U/L (0-50) 01/19/25 06:13
Alkaline Phosphatase 247 U/L (38-126) H 01/19/25 06:13
Total Protein 5.4 g/dl (6.3-8.2) L 01/19/25 06:13
Albumin 2.5 g/dl (3.5-5.0) L 01/19/25 06:13
Physical Exam
-
Gen: NAD
Abd: soft, diffuse mild ttp, mild distention
Patient has a long catheter: No
Patient has a central line: No
--- NOTE | 2025-01-19 09:55 | W.PN.GI.CBS2 ---
Addendum entered and electronically signed by Asia Sullivan MD 01/19/25 14:03:
I saw and examined the patient.
The DECKHAND OYSTER DREDGE or PA's note was reviewed and I agree with the note.
Comment: 89-year-old male history of , recent cholecystectomy, recent diagnosis of metastatic renal cancer to omentum presenting with heartburn, epigastric pain, there was concern about a bile leak so underwent HIDA scan today which was negative.
Discussed with surgery, next step small bowel follow-through to look for partial small bowel obstruction, concern he could also have a malignant partial small bowel obstruction per onc. Further recommendations pending. Underwent upper endoscopy
last week which was negative.
Original Note:
Today's Communication / Plan
-
still with nausea and bloating but no further vomiting
plan for hida today
if neg possible SBFT per surgery
can also consider US to assess for ascites as noted as moderate on CT
NPO
for oncology evaluation with concern for mets on recent moy
family updated at bedside
Assessment / Plan
-
89-year-old male past medical history of aortic stenosis, recent cholecystectomy which he was found to have metastatic renal cancer to omentum presenting with persistent heartburn, epigastric pain. He had an EGD done last week. CT had questionable
collection could be related to bile leak.
-nausea/vomiting prior to admission
-CT on admission with ascites concern for possible bile leak
-CT concern for possible ileus early SBO
-sub CM hepatic foci per imaging
-leukocytosis
-mild LFT elevation -improved with chronic alk phos elevation
-recent moy 01/11
-metastatic renal cell CA to omentum noted on recent moy
-hypoalbuminemia
other med problems:
-
-CVA
-hypercholesterolemia
PLAN:
still with nausea and bloating with no further vomiting
plan for hida today
if neg possible SBFT per surgery
can also consider US to assess for ascites as noted as moderate on CT
NPO
for oncology evaluation with concern for mets on recent moy
Subjective
Subjective
Date of Service: January 19, 2025
NPO for HIDA Scan today still with some pain and nausea, last vomiting 2 days ago and stool yesterday with + flatus
Objective
Data Reviewed
Laboratory Data:
Laboratory Results
01/19/25 06:13
01/19/25 06:13
Laboratory Results
Magnesium 1.8 mg/dl (1.6-2.3) 01/19/25 06:13
Total Bilirubin 0.9 mg/dl (0.2-1.3) 01/19/25 06:13
AST 47 U/L (17-59) 01/19/25 06:13
ALT 45 U/L (0-50) 01/19/25 06:13
Alkaline Phosphatase 247 U/L (38-126) H 01/19/25 06:13
Lipase 99 U/L (23-300) 01/17/25 21:29
Vital Signs and I&O:
Vital Signs
Temp Pulse Resp BP Pulse Ox
97.6 F 76 16 126/71 94
01/19/25 07:15 01/19/25 07:15 01/19/25 07:15 01/19/25 07:15 01/19/25 07:15
I&O
01/18/25 01/19/25 01/20/25
06:59 06:59 06:59
Intake Total 1100 / 1100
Output Total 575 / 575
Balance 525 / 525
Physical Exam
Physical Exam
HEENT: Anicteric and Moist mucous membranes
Cardiology: Normal Sinus Rhythm
Pulmonary: Clear
GI: Soft, Distended and Tender (minimal diffuse )
Extremities: No Edema
Neuro: Non Focal
--- NOTE | 2025-01-19 10:18 | CM ---
CM following re: discharge planning.
Reviewed pt's chart, met with pt .
Pt is an 89 year old male, admitted with primary dx of nausea and vomiting.
Pt reports he lives alone in an independent apartment at [facility], has supportive son, another son . Emotional support offered and provided. Pt reports he has supportive girlfriend. Pt described himself as independent in all areas
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 Pt expressed his desire to return back home at discharge and his son will transport.
PCP: Gunjan Maya
Pharmacy: [facility]
D/C plan: home with anticipated no needs. Son to transport at discharge.
CM will follow with discharge plan updates as hospitalization progresses
--- NOTE | 2025-01-19 12:38 | W.PN.HOSP.TC ---
Today's Communication/Plan
-
Assessment / Plan
Assessment / Plan
General: No Apparent Distress, Comfortable and Conversant
HEENT: NormoCephalic, Moist mucous membranes, Atraumatic
Respiratory: Clear and Non Labored Respirations
Cardiac: S1/S2 and Regular Rhythm; No Rub or Gallop
GI: Soft, Non Tender, Non Distended and Normal Bowel Sounds
Musculoskeletal: No Edema, no deformity
: NO Stevenson
Neuro: Awake, Alert, Nonfocal/grossly intact
Psych: Calm and cooperative
A/P: Patient is an 89y M with PMH significant for prior CVA, aortic stenosis and recent cholecystectomy 01/11 who presents to ED complaining of heartburn and N/V.
Intractable N/V
s/p Robotic Cholecystectomy 01/[address]
Post-Op Ileus
- Admit for further evaluation and treatment.
- Recurrent N/V and heartburn with CT showing significant amount of edema and free fluid - greater than expected even given recent surgery, possibly malignancy related considering recent omental biopsy positive for metastatic RCC
- HIDA scan pending to assess for possible biliary leak
- Will follow-up surgery recommendations following HIDA scan
- Cover with empiric abx - IV Zosyn
- Supportive care with pain control, IVFs, antiemetics
Renal Cancer
- Biopsy of omentum done during recent cholecystectomy was consistent with metastatic carcinoma from renal primary.
- Patient has outpatient follow-up scheduled with Urology and Oncology later this week, urology notified of readmission.
- Inpatient oncology consult placed
ASCVD / Prior CVA
- No new focal deficits / complaints.
Mild Hyponatremia
- Resolved, monitor
DVT Prophylaxis: SCDs
Code Status: DNR
Anticipated Discharge: 24 - 48 hours
Subjective/Interval History
-
Date of Service: January 19, 2025
The patient was seen and examined bedside this morning. Still following nauseous. Awaiting HIDA scan to assess for possible biliary leak.
Objective Data
-
Labs:
Laboratory Results
01/19/25
06:13
WBC 13.0 H
Hgb 12.3 L
Hct 36.7 L
Plt Count 392
Sodium 135
Potassium 3.9
Chloride 104
Carbon Dioxide 25
BUN 18
Creatinine 0.8
Glucose 143 H
Calcium 8.1 L
Total Bilirubin 0.9
AST 47
ALT 45
Alkaline Phosphatase 247 H
Vital Signs:
Vital Signs
Temp Pulse Resp BP Pulse Ox
97.6 F 76 16 126/71 94
01/19/25 07:15 01/19/25 07:15 01/19/25 07:15 01/19/25 07:15 01/19/25 07:15
I&O
01/18/25 01/19/25 01/20/25
06:59 06:59 06:59
Intake Total 1100 / 1100
Output Total 575 / 575
Balance 525 / 525
Review of Systems
-
History Source: Patient
All other systems: Reviewed and negative
Abdomen/GI: Reports Nausea
Physical Exam
-
General: No Apparent Distress
--- NOTE | 2025-01-19 12:59 | CON.ONC ---
Consultation
-
Date Consultation Requested: 01/19/25
Date Consultation Performed: 01/19/25
Requesting Provider: Dr. Sharif Foy
Performing Provider: Dr. Tram Dixon, Dr. Frederick Durán
Reason for Consultation: Renal Cell Carcinoma
Impression
Impression
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
#Abdominal pain with abnormal CT findings
#Elevated alkaline phosphate - since June 2024
Plan
Plan
- Immunohistochemistry is consistent with renal cell carcinoma - Stage T1a.
- Patient has metastasis to the omentum which is an extremely rare site of metastasis with RCC. Discussed options of treatment with Keytruda/ Nevalumab/ small molecule inhibitors with son/brother.
- Patient to follow up outpatient with oncology for further conversation of treatment. Can also consider genetic testing to assess for alterations that can guide targeted therapies/germline DNA mutations.
- CT revealed pulmonary mass -1.5 cm in 2021, now approximately 2 cm. Possible metastasis with RCC - plan to order full CT chest.
- CT also shows significant amount of edema and free fluid, greater than expected given recent surgery. Possible malignant partial small bowel obstruction.
- HIDA scan shows no evidence of bile leak or biliary obstruction.
Patient History
History of Present Illness
89-year-old male with a past medical history of CVA, aortic stenosis and recent cholecystectomy on 01/11/2025 who presented to the ED with nausea/vomiting. Patient developed nausea, vomiting, progressive abdominal pain and heartburn after being
discharged from the hospital on 01/12/25. Biopsy of the omentum was performed during recent cholecystectomy and revealed extensive carcinoma with renal as the primary. Patient also states he has developed dark-colored urine over the past few days
with associated difficulty voiding. Patient states 'I know this is never going to end.' He has a follow-up scheduled with urology Dr. Mao coming up soon. Family history significant for skin cancer.
Past-Medical/Surgical History
Past Medical History:
Aortic Stenosis
ASCVD / Prior CVA
Kidney Stones
Renal Cancer
Past Surgical History:
Robotic Jeanine (01/11/25)
Cysto / Stent
Shoulder Surgery
Knee Surgery
Patient Medication
�Medication �Instructions �Recorded �Confirmed �Last Taken �Type
ascorbic acid (vitamin C) 500 mg 500 mg PO Q48H Supplement 04/19/17 01/17/25 12/29/19 16:30 History
tablet (Vitamin C)
cholecalciferol (vitamin D3) 50 2,000 unit PO Q48H Supplement 04/19/17 01/17/25 04/21/20 16:00 History
mcg (2,000 unit) tablet
vit C 250 mg-vit E 90 mg-zinc 40 1 tab PO BID Eye Condition 04/19/17 01/17/25 12/29/19 10:30 History
mg-copper 1 [id number]
capsule (PreserVision AREDS-2)
aspirin 81 mg chewable tablet 81 mg PO DAILY #30 tabs 06/30/24 01/17/25 Unknown Rx
rosuvastatin 20 mg tablet 20 mg PO QPM #30 tabs 06/30/24 01/17/25 Unknown Rx
acetaminophen 325 mg tablet 650 mg (2 x 325 mg) PO Q4HPRN PRN 01/12/25 01/17/25 Unknown Rx
if temp > 101 F #1 tab
Active Medications
Generic Name Dose Route Start Last Admin
Trade Name Freq PRN Reason Stop Dose Admin
Acetaminophen 650 mg 01/18/25 02:57
Acetaminophen 325 Mg Tablet PO 02/15/25 02:56
Q4HPRN PRN
Mild Pain / Temp > 101
Hydromorphone HCl 0.5 mg 01/18/25 02:57 01/19/25 05:29
Hydromorphone 0.5 Mg/0.5 Ml Syringe IV 02/01/25 02:56 0.5 mg
Q4HPRN PRN Administration
Severe Pain
Piperacillin Sod/Tazobactam Sod 3.375 gram in 50 mls @ 100 mls/hr 01/18/25 06:00 01/19/25 05:13
Zosyn IV 50 mls
Q6H KATELYNN Administration
Ondansetron HCl 4 mg 01/18/25 02:57
Ondansetron 4 Mg/2 Ml Vial IV 02/15/25 02:56
Q6HPRN PRN
nausea and vomiting
Pantoprazole Sodium 40 mg 01/18/25 20:00 01/19/25 09:02
Pantoprazole Sodium 40 Mg/10 Ml Vial IV 02/15/25 19:59 40 mg
BID KATELYNN Administration
Sodium Chloride 0 flush 01/18/25 03:00
Sodium Chloride 0.9% (Flush) Syringe IV 02/15/25 02:59
PER PROTOCOL KATELYNN
Sodium Chloride 10 ml 01/18/25 15:03 01/19/25 09:02
Sodium Chloride 0.9% (Preservative Free) 10 Ml Vial IV 02/15/25 07:59 10 ml
BID KATELYNN Administration
Review of Systems
-
History Source: Patient and Family
All Other Systems: Reviewed and Negative
EENT: Reports No Symptoms
Respiratory: Reports No Symptoms
Cardiac: Reports No Symptoms
GI: Reports Abdominal Pain, Nausea, Vomiting and Indigestion
Breast: Reports No Symptoms
Musculoskeletal: Reports No Symptoms
Skin: Reports No Symptoms
Neuro: Reports No Symptoms
Endocrine: Reports No Symptoms
Allergy / Immunology: Reports No Symptoms
Psych: Reports Sad
Physical Exam
-
General: Well Developed, Well Nourished, No Apparent Distress, Comfortable, Conversant and Other (Pale)
Cardiology: Normal Sinus Rhythm, S1 and S2
Pulmonary: Clear and Wheezes
GI: Soft, Normal Bowel Sounds and Other (Tenderness over right side of abdomen)
Musculoskeletal: No Clubbing, No Cyanosis and No Edema
Skin: Warm
Psych: Calm
Labs
Lab Results
WBC 13.0 10^3/uL (4.8-10.8) H 01/19/25 06:13
RBC 4.26 10^6/uL (4.70-6.10) L 01/19/25 06:13
Hgb 12.3 g/dL (13.0-18.0) L 01/19/25 06:13
Hct 36.7 % (39.0-52.0) L 01/19/25 06:13
MCV 86.2 fL (80.0-94.0) 01/19/25 06:13
MCH 28.9 pg (27.0-31.0) 01/19/25 06:13
MCHC 33.5 g/dL (33.0-37.0) 01/19/25 06:13
RDW 12.1 % (11.5-14.5) 01/19/25 06:13
Plt Count 392 10^3/uL (130-400) 01/19/25 06:13
MPV 9.3 fL (7.4-10.4) 01/19/25 06:13
Abs Immat Gran (auto) 0.1 10^3/uL (0-0.05) H 01/19/25 06:13
Absolute Neuts (auto) 11.0 10^3/uL (1.4-6.5) H 01/19/25 06:13
Absolute Lymphs (auto) 0.5 10^3/uL (1.2-3.4) L 01/19/25 06:13
Absolute Monos (auto) 1.2 10^3/uL (0.1-0.6) H 01/19/25 06:13
Absolute Eos (auto) 0.0 10^3/uL (0-0.7) 01/19/25 06:13
Absolute Basos (auto) 0.0 10^3/uL (0-0.2) 01/19/25 06:13
Immature Gran % 0.7 % (0-0.5) H 01/19/25 06:13
Neutrophils % 85.2 % (42.2-75.2) H 01/19/25 06:13
Lymphocytes % 4.2 % (20.5-51.1) L 01/19/25 06:13
Monocytes % 9.4 % (1.7-9.3) H 01/19/25 06:13
Eosinophils % 0.3 % (0-6) 01/19/25 06:13
Basophils % 0.2 % (0-2) 01/19/25 06:13
Creatinine 0.8 mg/dL (0.7-1.3) 01/19/25 06:13
Vital Signs
Vital Signs
Temp Pulse Resp BP Pulse Ox
97.6 F 76 16 126/71 94
01/19/25 07:15 01/19/25 07:15 01/19/25 07:15 01/19/25 07:15 01/19/25 07:15
[2025-01-19 13:09] VITALS: BP 144/75
[2025-01-19 19:11] VITALS: BP 130/71
[2025-01-19] MEDS: D5/0.45%NACL 1000 IV (19:39)
[2025-01-19] MEDS: ZOFRAN 4 MG IV (19:41)
[2025-01-19 23:06] VITALS: BP 133/73
[2025-01-20] VITALS (13 sets, daily range): BP systolic 91–161; BP diastolic 47–96; BMI 25.2
[2025-01-20] MEDS: COMPAZINE 5 MG IV (01:15)
[2025-01-20] MEDS: ZOFRAN 4 MG IV (02:57)
--- NOTE | 2025-01-20 04:28 | PTCARENOTE ---
Addendum entered by Matilda Laughlin RN 01/20/25 06:19:
Troponin ordered, obtained, and sent. Chest xray completed. Abdominal xray completed. Pt voided 150cc of tea colored urine. Care ongoing.
Original Note:
At 1241 pt c/o extreme nausea but not due for zofran yet, 1x dose of compazine ordered and administered, see MAR. Pt vomited ~50cc at 0245 and prn zofran administered at 0257. At 0428 pt still extremely nauseated, and now shaking, and shivering.
Temp was 98.5 orally, bp was 161/96. Pt having heart rates up into the the 160s but sustaining in the 130s. Pt tachypneic and now has an audible expiratory wheeze. Hephziba, PARTY DIRECTOR at bedside. IV valium ordered and administered at 0459. Blood sugar
was 159. 2L nc applied for comfort. Bladder scan was 154. EKG ordered and completed. AM labs ordered, obtained, and sent. Rectal temp 101.7. IV protonix and IV Ofirmev ordered and administered see MAR. Chest xray ordered. Care ongoing.
[2025-01-20 04:56] LABS: Glucose - Point of Care 159 mg/dl (70-99)
[2025-01-20] MEDS: VALIUM INJECTION 2 MG IV (04:59)
[2025-01-20] MEDS: ZOSYN 50 IV ×2 (05:05→12:12)
[2025-01-20] MEDS: NSS (PRESERVATIVE FREE) 10 ML IV (05:14)
[2025-01-20] MEDS: PROTONIX IV 40 MG IV (05:14)
--- NOTE | 2025-01-20 05:15 | W.PN.UPDATE ---
Addendum entered and electronically signed by SEA Urbina 01/20/25 07:44:
son made aware.
Original Note:
Update Note
Progress Note Update
RN reported patient was nauseous and vomited 50CC bile and then started getting shivering and shaky.
Initial VS 98.5 161/96 HR 130's 24.
Patient seen and evaluated, noted to be shivering with multiple blankets on, refused to be assessed at present as he feels very cold.
States he is belching and passing gas requesting Protonix and something to help him sleep. denies chest pain, shortness of breath, abdomen pain at present.
abdomen xray pending
rectal temp done and is 102.5 HR 130's RR
EKG, labs, Chest Xray, oxygen 2l
Tylenol Iv, Valium 2mg IV, Protonix 40mg IV now
Patient reassessed and not shivering at present, lungs with audible expiratory wheezes. Abdomen distended, unable to hear BS. denies any pain.
awaiting Abdomen Xray
EKG noted, Trop added
Radiologist notified of Xray of the Abdomen, results notified to attending and General surgical team.
continue NPO, IVF, IV Zosyn (patient received), Transfer to IMU
[2025-01-20] MEDS: OFIRMEV 100 IV (05:24)
[2025-01-20 05:42] LABS: INR 1.38; PT 17.5 Sec (11.4-14.6)
[2025-01-20 05:48] LABS: Hematocrit 41.9 % (39.0-52.0); Hemoglobin 13.8 g/dL (13.0-18.0); Mean Corp Hgb Conc. 32.9 g/dL (33.0-37.0); Mean Corpuscular Volume 89.0 fL (80.0-94.0); Platelet Count 531 10^3/uL (130-400); Red Cell Dist. Width 12.1 % (11.5-14.5)
[2025-01-20 06:02] LABS: Albumin 2.9 g/dl (3.5-5.0); Alkaline Phosphatase 264 U/L (38-126); Blood Urea Nitrogen 24 mg/dl (9-20); Calcium 8.4 mg/dl (8.4-10.2); Carbon Dioxide 20 mmol/L (22-30); Chloride 103 mmol/L (98-107); Estimated Creatinine Clearance 47 ml/min; Glucose 217 mg/dl (70-99); Magnesium 2.0 mg/dl (1.6-2.3); Potassium 4.2 mmol/L (3.5-5.1); Sodium 137 mmol/L (135-145); Total Protein 6.0 g/dl (6.3-8.2); eGFR > 60.00
[2025-01-20 06:17] LABS: AST (SGOT) 44 U/L (17-59)
[2025-01-20 06:38] LABS: ALT (SGPT) 52 U/L (0-50)
[2025-01-20 06:49] LABS: Troponin I < 0.012 ng/ml
[2025-01-20] MEDS: NSS 1000 IV (07:36)
--- NOTE | 2025-01-20 08:04 | PTCARENOTE ---
Addendum entered by Vera Blue RN 01/20/25 08:42:
pt transferred to Rm [id number] via bed with glasses and underwear.
Original Note:
assumed care of pt from previous shift at 0715. pt to CT via stretcher @ 0715 and returned @0745 without incident.
VS: 97.9 or-694-98-99/57, 2L O2-92%. pt with productive weak cough-with thick yellow sputum. abdomen distended, tender, round and hypoactive BS noted. mouth swabs provided. pt asking for water. denies nausea at present. Dr San at bedside.
orders noted to move to Rm [id number]. report given to PRODUCT SAFETY HEAD.
--- NOTE | 2025-01-20 08:31 | W.PN.GS2 ---
Today's Communication / Plan
-
recommend palliative PEG
Assessment / Plan
-
89M POD8 s/p RAL CCY with peritoneal studding and omental caking positive for adenoCA most likely renal origin, now with suspected malignant pSBO
SIRS
LFTs normalized
WBC trending up
Admit CT with dilated small bowel and small amount free fluid low in the abdomen
HIDA negative for leak or obstruction
Suspect malignant pSBO
Rpt CT with pSBO at the terminal ileum, no free air, no pneumatois, no PV gas
CXR with interstitial pneumonitis vs PNA, possibly source for sepsis
Plan:
Empiric abx
NPO, ice chips OK
D/w patient and son (by phone) palliative surgical options at this point ranging from most risky and aggressive - ex-lap and DLI to lower risk option - venting PEG. PEG would allow drinking and prevent n/v
Another option would be to pursue comfort care only
Heme/Onc and Urology following
Will follow
Subjective Data
-
Date of Service: January 20, 2025
Febrile, tachycardic, and soft BP overnight. Feels the same. Passing flatus. Had vomiting of contrast after the imaging study. Pain unchanged.
Objective Data
-
Intake and Output
01/19/25 01/20/25 01/21/25
06:59 06:59 06:59
Intake Total 1100 / 1100 1110 / 1110
Output Total 575 / 575 600 / 600
Balance 525 / 525 510 / 510
Intake:
Oral fluids 960 / 960
IV fluids (Total) 1000 / 1000
IV piggybacks 100 / 100 150 / 150
Output:
Emesis 50 / 50
Urine, Voided 575 / 575 550 / 550
Vital Signs
Temp Pulse Resp BP Pulse Ox
97.9 F 111 20 99/57 92
01/20/25 07:52 01/20/25 07:52 01/20/25 07:52 01/20/25 07:52 01/20/25 07:52
Lab Results
01/20/25 05:18
01/20/25 05:18
Calcium 8.4 mg/dl (8.4-10.2) 01/20/25 05:18
Magnesium 2.0 mg/dl (1.6-2.3) 01/20/25 05:18
Total Bilirubin 1.2 mg/dl (0.2-1.3) 01/20/25 05:18
Direct Bilirubin 0.6 mg/dl (0.0-0.4) H 01/18/25 05:57
AST 44 U/L (17-59) 01/20/25 05:18
ALT 52 U/L (0-50) H 01/20/25 05:18
Alkaline Phosphatase 264 U/L (38-126) H 01/20/25 05:18
Total Protein 6.0 g/dl (6.3-8.2) L 01/20/25 05:18
Albumin 2.9 g/dl (3.5-5.0) L 01/20/25 05:18
Physical Exam
-
Gen: NAD
Abd: soft, mild ttp diffusely, mild distention
Patient has a long catheter: No
Patient has a central line: No
--- NOTE | 2025-01-20 08:33 | W.PN.ONC2 ---
Today's Communication / Plan
-
after careful thought and discussion with consultants and family, pt has opted for comfort focused care
No further inpatient medical oncology recommendations, we will sign off -please reach out for any questions or concerns.
Impression
Impression
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
#CT suspicious for at least partial distal small bowel obstruction
#Elevated alkaline phosphate - since June 2024
#Fever
#reactive thrombocytosis
Plan
Plan
- Immunohistochemistry is consistent with renal cell carcinoma - Stage T1a.
- Patient has metastasis to the omentum which is an extremely rare site of metastasis with RCC. Discussed options of treatment with Keytruda/ Nevalumab/ small molecule inhibitors with son/brother.
- Patient to follow up outpatient with oncology for further conversation of treatment. Can also consider genetic testing to assess for alterations that can guide targeted therapies/germline DNA mutations.
- CT revealed pulmonary mass -1.5 cm in 2021, now approximately 2 cm. Possible metastasis with RCC - Eventual dedicated CT chest.
- CT also shows significant amount of edema and free fluid, greater than expected given recent surgery. Possible malignant partial small bowel obstruction.
- HIDA scan shows no evidence of bile leak or biliary obstruction.
Subjective/Objective
Subjective
events overnight noted
Tmax 103.1F, 2L NC
Vital Signs:
Vital Signs
Temp Pulse Resp BP Pulse Ox
97.9 F 111 20 99/57 92
01/20/25 07:52 01/20/25 07:52 01/20/25 07:52 01/20/25 07:52 01/20/25 07:52
Lab Results:
Laboratory Data
WBC 15.7 10^3/uL (4.8-10.8) H 01/20/25 05:18
Hgb 13.8 g/dL (13.0-18.0) 01/20/25 05:18
Plt Count 531 10^3/uL (130-400) H D 10/07/25 05:18
PT 17.5 Sec (11.4-14.6) H 01/20/25 05:18
INR 1.38 01/20/25 05:18
eGFR > 60.00 01/20/25 05:18
--- NOTE | 2025-01-20 09:05 | W.PN.GI.CBS2 ---
Addendum entered and electronically signed by Debra Ritter MD 01/20/25 12:56:
I saw and examined the patient.
The TAPROOM ATTENDANT or PA's note was reviewed and I agree with the note.
Comment:
spoke with son and pt and pt wants hospice.
can leave in NGT for comfort for now if needed
will sign off
Original Note:
Today's Communication / Plan
-
pt noted with rigors, fever and vomiting overnight with concern for SIRS and tx to IMU--
cont IV Zosyn
SBFT with follow up imaging concern for distal SBO with concern for omental mets
s/p surgical eval this am with multiple options review with patient and son-- hospice, exp lap, venting peg
pt and family unsure of direction they wish to proceed
discussed decompression NGT for now as noted with continued belching, distention, and vomiting this am-will be temporary measure with vomiting but may
cont NPO
cont Protonix BID
s/p oncology and urology evaluation
reviewed with son, nursing staff, Dr. Ritter and Dr. San
Assessment / Plan
-
89-year-old male past medical history of aortic stenosis, recent cholecystectomy which he was found to have metastatic renal cancer to omentum presenting with persistent heartburn, vomiting, and epigastric pain. He had an EGD done last week. work
up with concern for SBO with need for transfer.
01/19 HIDA neg leak and neg obstruction
01/19- SB study- Limited exam secondary to delayed transit. Probable small bowel obstruction versus ileus. Small bowel study ended. A KUB this evening around 6-7 PM is recommended.
Moderate fecal material throughout the colon.
01/19 7:50 PM abd X ray Progression of contrast to dilated proximal small bowel loops. As discussed above, findings are suggestive of small bowel obstruction.
01/20- CXR Findings at least suspicious for free air beneath the dome of the left hemidiaphragm.Slightly prominent pulmonary interstitium which could represent interstitial edema or pneumonitis.
Some bibasilar opacity most likely representing subsegmental atelectasis.
01/20- In conjunction with concurrent chest radiograph, findings at least suspicious for free air in the abdomen. Recommend lateral decubitus/erect view or CT.
01/20 CT A/p without contrast No findings to confirm free air. Findings suspicious for at least partial distal small bowel obstruction. Small volume ascites with some accompanying mesenteric stranding.
Small simple bilateral renal cysts. Additional complex renal cysts or solid masses cannot be excluded on this study obtained without intravenous contrast.
Stable small right basilar lung nodule, likely benign.
-nausea/vomiting with recurrence during admission
-fever/rigors with concern for SIRS
-imaging with concern for distal small bowel obstruction
-CT on admission with ascites concern for possible bile leak with neg HIDA
-sub CM hepatic foci per imaging
-leukocytosis
-mild LFT elevation -improved with chronic alk phos elevation
-recent moy 01/11
-metastatic renal cell CA to omentum noted on recent moy
-hypoalbuminemia
other med problems:
-
-CVA
-hypercholesterolemia
PLAN:
pt noted with rigors, fever and vomiting overnight with concern for SIRS and tx to IMU
cont IV Zosyn
SBFT with follow up imaging concern for distal SBO with concern for omental mets
s/p surgical eval this am with multiple options review with patient and son-- hospice, exp lap, venting peg
pt and family unsure of direction they wish to proceed
discussed decompression NGT for now as noted with continued belching, distention, and vomiting this am-will be temporary measure with vomiting but may
cont NPO
cont Protonix BID
s/p oncology and urology evaluation
reviewed with son, nursing staff, Dr. Ritter and Dr. San
Subjective
Subjective
Date of Service: January 20, 2025
Pt with noted vomiting and rigor this am with move to ICU and fever up to 103
Objective
Data Reviewed
Laboratory Data:
Laboratory Results
01/20/25 05:18
01/20/25 05:18
Laboratory Results
PT 17.5 Sec (11.4-14.6) H 01/20/25 05:18
INR 1.38 01/20/25 05:18
Magnesium 2.0 mg/dl (1.6-2.3) 01/20/25 05:18
Total Bilirubin 1.2 mg/dl (0.2-1.3) 01/20/25 05:18
AST 44 U/L (17-59) 01/20/25 05:18
ALT 52 U/L (0-50) H 01/20/25 05:18
Alkaline Phosphatase 264 U/L (38-126) H 01/20/25 05:18
Lipase 99 U/L (23-300) 01/17/25 21:29
Vital Signs and I&O:
Vital Signs
Temp Pulse Resp BP Pulse Ox
97.9 F 111 20 99/57 92
01/20/25 07:52 01/20/25 07:52 01/20/25 07:52 01/20/25 07:52 01/20/25 07:52
I&O
01/19/25 01/20/25 01/21/25
06:59 06:59 06:59
Intake Total 1100 / 1100 1110 / 1110
Output Total 575 / 575 600 / 600
Balance 525 / 525 510 / 510
Physical Exam
Physical Exam
HEENT: Anicteric and Moist mucous membranes
Cardiology: Other (tachy)
Pulmonary: Other (decreased )
GI: Distended, Tender (diffuse ) and Other (tympanic )
Neuro: Non Focal
[2025-01-20] MEDS: TORADOL 15 MG IV (09:19)
--- NOTE | 2025-01-20 09:51 | HOSPNOTE ---
Spoke with Dr San who would like me to speak with son and patient about hospice and the philosophy. More information to follow.
--- NOTE | 2025-01-20 10:38 | HOSPNOTE ---
Spoke with patient and son and the plan is to move forward with inpatient hospice. The patient does not wish to continue with any further treatments. I spoke with Dr San and Dr Sharif Foy and all in agreement with inpatient hospice.
Admissions was called and patient will be moved to orth when a bed is available.
[2025-01-20] MEDS: NSS (PRESERVATIVE FREE) IV (11:22)
--- NOTE | 2025-01-20 11:36 | PTCARENOTE ---
received pt from 2S , pt drowsy but oriented , ST on monitor , BP 108/62, on 2L NC , tachypneic 30-40s , sats 94% , pt was seen by GI VACUUM CLOSING MACHINE OPERATOR , NGT placed in R nare and confirmed placement with x-ray , bile output , 900 out put thus far , pt was
consulted to hospice , pt and son spoke with sccm administrator and now pt is to trasition to hospice today , he was given IV Toradol on arrival , he is now more comfortable with his bowel decompression , family is at bedside , pastoral care was consulted
for support
--- NOTE | 2025-01-20 12:19 | W.DCSUMMARY ---
Discharge Summary
Discharge Data
Date of Admission: 01/18/25
Date of Discharge: 01/20/25
Total time spent discharging patient (in min): 45
-
Pending Results: No
Hospital Course
Mr. Stevens is an 89-year-old male with a medical history of aortic stenosis, CVA, renal cell carcinoma, and recent robotic cholecystectomy 01/11/2025 who presented with nausea and vomiting. During his recent cholecystectomy he was incidentally found
to have omental lesions, the biopsies of which resulted positive for metastatic renal cell carcinoma. His presenting nausea and vomiting appears to have been secondary to small bowel obstruction possibly due to occult malignancy. There was no
evidence for bile leak related to his recent cholecystectomy on HIDA scan. His abdominal discomfort with associated nausea and vomiting progressed. He developed fever, hypotension, and worsening leukocytosis. An NG tube was placed for
decompression with some relief. Ultimately patient made a decision with his family to transition to hospice care.
General: Uncomfortable, ill-appearing
HEENT: NormoCephalic, NG tube in place with bilious output
Respiratory: Equal chest rise, Non Labored Respirations
Cardiac: Sinus rhythm, heart rate around 90
GI: Distended, soft
Musculoskeletal: No Edema, no deformity
: NO Stevenson
Neuro: Awake, Alert, Nonfocal/grossly intact
Psych: Anxious, cooperative
Discharge Plan
-
Patient Disposition: Hospice - Inpatient
Discharge Diagnosis/Procedures: Sepsis secondary to suspected malignant small bowel obstruction
Referrals:
Gunjan Maya DO [Family Provider, Internal Medicine]
Prescriptions:
Discontinued
ascorbic acid (vitamin C) [Vitamin C] 500 MG tablet
500 mg PO Q48H
PreserVision AREDS-2 1 EACH capsule
1 tab PO BID
cholecalciferol (vitamin D3) 2,000 UNITS tablet
2,000 unit PO Q48H
aspirin 81 mg Tablet,Chewable
81 mg PO DAILY Qty: 30 0RF
rosuvastatin 20 mg Tablet
20 mg PO QPM Qty: 30 0RF
acetaminophen 325 mg Tablet
650 mg PO Q4HPRN PRN (Reason: if temp > 101 F) Qty: 1 0RF
Discharge Orders:
Discharge Patient (As Directed); Ordered 01/20/25
Ordered By: Sharif Foy
Discharge Date and Time
Print Language: MICRONESIAN
--- NOTE | 2025-01-20 12:56 | CM ---
Patient has been discharged from acute care and admitted to inpatient hospice. cath lab manager will remain available to patient, family and hospice team.
== END 2025-01-20 13:12 | disposition hospice, inpatient (51) | DRG 393 ==
LOC: ICU 02:27
PROVIDERS: Emergency Medicine; Nurse Practitioner; Nurse Practitioner Adult Health; Nurse Practitioner Gerontology; Student in an Organized Health Care Education/Training Program; ADMITTING PHYSICIAN Hospitalist; ATTENDING PHYSICIAN Internal Medicine; CONSULT PHYSICIAN Internal Medicine Gastroenterology; EMERGENCY PHYSICIAN Student in an Organized Health Care Education/Training Program; FAMILY PHYSICIAN Internal Medicine; OTHER PHYSICIAN Internal Medicine Hematology & Oncology; OTHER PHYSICIAN Surgery
DX: K91.89 Other postprocedural complications and disorders of digestive system (principal); A41.9 Sepsis, unspecified organism; K56.609 Unspecified intestinal obstruction, unspecified as to partial versus complete obstruction; C64.9 Malignant neoplasm of unspecified kidney, except renal pelvis; E87.1 Hypo-osmolality and hyponatremia; R18.8 Other ascites; C78.6 Secondary malignant neoplasm of retroperitoneum and peritoneum; Z86.73 Personal history of transient ischemic attack (TIA), and cerebral infarction without residual deficits; Z87.442 Personal history of urinary calculi; E78.00 Pure hypercholesterolemia, unspecified; I25.10 Atherosclerotic heart disease of native coronary artery without angina pectoris; Y83.8 Other surgical procedures as the cause of abnormal reaction of the patient, or of later complication, without mention of misadventure at the time of the procedure; N28.1 Cyst of kidney, acquired; Z66 Do not resuscitate; Z79.82 Long term (current) use of aspirin; Z80.8 Family history of malignant neoplasm of other organs or systems; R91.1 Solitary pulmonary nodule
CPT/HCPCS: 71045; 74018; 74176; 74177; 74250; 78226; 80048; 80053; 80076; 81003; 81015; 82962; 83690; 83735; 84484; 85025; 85027; 85610; 93005; 96361; 96365; 96375; 99285; A9537; Q9967

== ENCOUNTER 2025-01-20 13:14 | Inpatient (IN) | payer OTHER, SELFPAY ==
--- NOTE | 2025-01-20 12:40 | ADM.HSP ---
Admission - Hospice
History of Present Illness
Mr. Stevens is an 89-year-old male with a medical history of aortic stenosis, CVA, renal cell carcinoma, and recent robotic cholecystectomy 01/11/2025 who presented with nausea and vomiting. During his recent cholecystectomy he was incidentally found
to have omental lesions, the biopsies of which resulted positive for metastatic renal cell carcinoma. His presenting nausea and vomiting appears to have been secondary to small bowel obstruction possibly due to occult malignancy. There was no
evidence for bile leak related to his recent cholecystectomy on HIDA scan. His abdominal discomfort with associated nausea and vomiting progressed. He developed fever, hypotension, and worsening leukocytosis. An NG tube was placed for
decompression with some relief. Ultimately patient made a decision with his family to transition to hospice care.
Reason for Hospice Admission
Sepsis secondary to suspected malignant SBO
Review of Systems
History Source: Patient
All other systems: Reviewed and Negative
GI: Abdominal Pain and Nausea
Physical Exam
General: Pain and Fever
Assessment/Medication Plan
Mr. Stevens is an 89-year-old male with a medical history of aortic stenosis, CVA, renal cell carcinoma, and recent robotic cholecystectomy 01/11/2025 who presented with nausea and vomiting. During his recent cholecystectomy he was incidentally found
to have omental lesions, the biopsies of which resulted positive for metastatic renal cell carcinoma. His presenting nausea and vomiting appears to have been secondary to small bowel obstruction possibly due to occult malignancy. There was no
evidence for bile leak related to his recent cholecystectomy on HIDA scan. His abdominal discomfort with associated nausea and vomiting progressed. He developed fever, hypotension, and worsening leukocytosis. An NG tube was placed for
decompression with some relief. Ultimately patient made a decision with his family to transition to hospice care.
General: Uncomfortable, ill-appearing
HEENT: NormoCephalic, NG tube in place with bilious output
Respiratory: Equal chest rise, Non Labored Respirations
Cardiac: Sinus rhythm, heart rate around 90
GI: Distended, soft
Musculoskeletal: No Edema, no deformity
: NO Stevenson
Neuro: Awake, Alert, Nonfocal/grossly intact
Psych: Anxious, cooperative
[2025-01-20] MEDS: MORPHINE SULFATE 1 MG IV ×5 (14:31→23:07)
[2025-01-20] MEDS: ZOFRAN 4 MG IV ×2 (14:34→20:38)
--- NOTE | 2025-01-20 14:46 | CM ---
Inpatient hospice. CM will remain available to patient, family and hospice team.
[2025-01-20] MEDS: VALIUM INJECTION 2 MG IV ×2 (15:00→23:06)
--- NOTE | 2025-01-20 15:56 | PTCARENOTE ---
pt placed on comfort measures , pt NGT DC , he is being medicated as per protocol , he is drowsy but awake , family is at bedside
[2025-01-20 15:57] VITALS: BP 108/91
--- NOTE | 2025-01-20 18:44 | PTCARENOTE ---
pt co feeling need to void , unable to void , bladder scanned for 160 ml of urine
--- NOTE | 2025-01-20 19:04 | HOSPNOTE ---
Patient admitted inpatient hospice today. Inpatient for the management of pain, dyspnea, anxiety and nausea that could not be managed in the outpatient setting. Hospice will visit daily.
[2025-01-20] MEDS: PROTONIX IV 40 MG IV (21:05)
[2025-01-20] MEDS: NSS (PRESERVATIVE FREE) 10 ML IV (21:05)
[2025-01-20 23:32] VITALS: BP 120/69
[2025-01-21] MEDS: MORPHINE SULFATE 1 MG IV ×8 (00:56→18:08)
[2025-01-21] MEDS: VALIUM INJECTION 2 MG IV ×4 (03:58→20:27)
[2025-01-21 04:08] VITALS: BP 124/65
--- NOTE | 2025-01-21 04:13 | PTCARENOTE ---
Pt received start of shift. PRN morphine and valium as ordered/needed - see MAR. Pt aaox4, slow speech. 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 Pt refusing PO medication, requesting an IV medication instead. IV protonix order
obtained and administered, effective. Support provided to pt and family. Call gutiérrez within reach.
[2025-01-21 09:00] VITALS: BP 133/88
--- NOTE | 2025-01-21 09:00 | PTCARENOTE ---
Rec'd pt at 0700 dozing with family at the bedside. Awakens to verbal stimuli and overall is alert and oriented. Drowsy but easily arousable. FERNANDEZ but weakly and is painful when he turns. Speech is clear. Admits to 6/10 generalized discomfort.
Medicated at 0855 with Morphine 1 mg IV. Skin is pale wm and dry. Pt with several healing stab wounds on abd from previous surgery. Scab formation present. Respirs are shallow and tachypnic. At rest is not labored but does get orthopnic. BS are
decreased throughout with few bibase crackles. VS as documented. + pulses. Abd is firm and disteneded. Hypotactive BS./ Tender to palp. Denies nausea but does tend to need to suction himself for either clear or yellowish secretions. No sure if at
times he is burping. Taking ice chips. Denies need to void. Capped int intact LAC. Skin and mouth care given. Turned and repositioned. Plan of care reviewed with pt and family who are at the bedside. Call gutiérrez in reach.
--- NOTE | 2025-01-21 09:10 | PTCARENOTE ---
More restful after Morphine but when coughs or has mucous or gets secretions in his mouth tends to get uncomfortable. Medicated with Valium 2 mg IV.
--- NOTE | 2025-01-21 10:10 | PTCARENOTE ---
Family remains at the bedside. Eliza- hot saw operator in to see pt. When pt is restful he does tend to be tachypnic in the 30's with his respirs. Medicated with Morphine 1 mg IV per protocol for dyspnea assessment of 5. No other changes.
--- NOTE | 2025-01-21 10:34 | HOSPNOTE ---
Spoke with family and assessed patient. Patient was just medicated and appears comfortable at this time, when patient does wake up he indicates pain and does become anxious. I assured family we will take good care of him and manage his pain and
anxiety. Patient has needed doses of IV morphine and valium which works very well, patient continues to be inpatient appropriate for management of pain and anxiety requiring the use of IV medications. Patient will be seen daily and patient is
awaiting a bed on [facility].
--- NOTE | 2025-01-21 11:24 | HOSPNOTE ---
Commercial Green Retrofit Architect visited 89 year old patient to conduct Initial FUEL QUALITY TECH Assessment. Patient recently admitted onto Hospice Services and [facility] Level of Care with the Primary Diagnosis of Renal Cell Carcinoma. Nurse reported medications administered,
patient resting comfortably, and patient's son and DIL at patient's bedside. FUEL QUALITY TECH greeted patient and family members as FUEL QUALITY TECH and Pan Dumper Kenyon entered the room and introduced themselves. Patient lying in bed resting and watching TV as his son and DIL
were at his bedside feeding him ice chips as per his request. Patient requested prayer, Kenyon read scriptures and prayed with patient and family. Patient reported he was okay, denied pain, no distress observed. He told FUEL QUALITY TECH to check on his son and DIL.
FUEL QUALITY TECH encouraged patient to rest while FUEL QUALITY TECH spoke with Marc and Kaci. Marc reported he and Kaci are holding up and that he has his moments. Marc reported patient goes by 'Cordell'. Cordell served in the [employer] during the [place] War, his MOS was
[employer] and [employer]. 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 Cordell had two sons Marc and José Miguel, José Miguel passed years ago. Patient's grandson MARTÍN and granddaughter came to
visit him, each of them sat near patient's bed, keeping him company and feeding him ice chips as he requested. Cordell has 3 grandchildren MARTÍN is 21 years of age, Katelyn is 19 years of age, and Kay is 16 years of age, he is close to his family and
they're supportive. 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 He loves all [employer] sports. He loves golf and visited the [place] once. 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 He's Presbyterian and is affiliated with [facility], his wishes are to be buried and [facility] located [place] [address] [place] [address] [phone]
[phone] is in charge of the arrangements. Family declined Bereavement Services at this time. Prayer and Emotional Support Provided
Patient meets [facility] criteria for SN assessments, management of pain, and anxiety requiring the use of IV medications that could not be managed at home and/or in an Outpatient setting. Discharge planning continues.
FUEL QUALITY TECH will provide supportive services and monitor for additional services once a week while on [facility] Level of Care.
--- NOTE | 2025-01-21 12:25 | PTCARENOTE ---
pt wakes to name. states pain. meds given as ordered. pt repositioned.
[2025-01-21 13:00] VITALS: BP 125/79
--- NOTE | 2025-01-21 14:20 | CM ---
Inpatient hospice. CM will remain available to patient, family and hospice team.
[2025-01-21] MEDS: ROBINUL 1 MG PO (16:02)
--- NOTE | 2025-01-21 16:09 | W.PN.HOSP.TC ---
Today's Communication/Plan
-
Assessment / Plan
Assessment / Plan
General: Uncomfortable, ill-appearing
HEENT: NormoCephalic, NG tube removed
Respiratory: Equal chest rise, Non Labored Respirations
Cardiac: Sinus rhythm, heart rate around 100
GI: Distended, soft
Musculoskeletal: No Edema, no deformity
: NO Stevenson
Neuro: Awake, Alert, Nonfocal/grossly intact
Psych: Anxious, cooperative
Mr. Stevens is an 89-year-old male with a medical history of aortic stenosis, CVA, renal cell carcinoma, and recent robotic cholecystectomy 01/11/2025 who presented with nausea and vomiting. During his recent cholecystectomy he was incidentally found
to have omental lesions, the biopsies of which resulted positive for metastatic renal cell carcinoma. His presenting nausea and vomiting appears to have been secondary to small bowel obstruction possibly due to occult malignancy. There was no
evidence for bile leak related to his recent cholecystectomy on HIDA scan. His abdominal discomfort with associated nausea and vomiting progressed. He developed fever, hypotension, and worsening leukocytosis. An NG tube was placed for
decompression with some relief. Ultimately patient made a decision with his family to transition to hospice care.
Comfort care:
- Continue medications for pain and anxiety
- Ice chips as needed
- On hospice care
Anticipated Discharge: 24 - 48 hours
Subjective/Interval History
-
Date of Service: January 21, 2025
Patient was seen and examined at bedside this morning. Remains uncomfortable due to SBO. Somewhat more comfortable now that his NG tube has been removed. Remains on comfort care.
Objective Data
-
Vital Signs:
Vital Signs
Temp Pulse Resp BP Pulse Ox
98.1 F 110 34 125/79 91
01/21/25 07:13 01/21/25 13:00 01/21/25 13:00 01/21/25 13:00 01/21/25 09:00
I&O
01/20/25 01/21/25 01/22/25
06:59 06:59 06:59
Intake Total 120 / 120
Balance 120 / 120
Review of Systems
-
History Source: Patient
Abdomen/GI: Reports Abdominal Pain, Nausea and Bloated
Physical Exam
-
General: Appears Chronically Ill
[2025-01-21 17:06] VITALS: BP 109/69
[2025-01-21] MEDS: MORPHINE 100 IV (18:30)
[2025-01-21] MEDS: MORPHINE SULFATE 2 MG IV ×3 (18:48→23:09)
[2025-01-21] MEDS: PROTONIX IV 40 MG IV (20:26)
[2025-01-21] MEDS: NSS (PRESERVATIVE FREE) 10 ML IV (20:27)
[2025-01-21] MEDS: ROBINUL 0.2 MG IV (20:32)
[2025-01-21 23:08] VITALS: BP 88/58
[2025-01-22] MEDS: MORPHINE SULFATE 2 MG IV ×3 (00:25→04:43)
[2025-01-22] MEDS: VALIUM INJECTION 2 MG IV (00:27)
[2025-01-22] MEDS: ROBINUL 0.2 MG IV (04:46)
--- NOTE | 2025-01-22 05:22 | W.PN.DEATH ---
Pronouncement of
-
Called to see patient to pronounce.
No spontaneous heart tones or respirations noted.
Patient not responsive to verbal stimuli.
Patient is pronounced .
Time of : 05:00
Date of : 01/22/25
Cause of : sepsis,small bowel obstruction due to renal cell carcinoma
Family Notified: Yes (son eva and DIL present)
--- NOTE | 2025-01-22 05:27 | PTCARENOTE ---
[facility] notified of patient's but d/t age, patient does not meet criteria any donation per [facility].
--- NOTE | 2025-01-22 07:46 | W.DCSUMMARY ---
Discharge Summary
Discharge Data
Date of Admission: 01/20/25
Date of Discharge: 01/22/25
Total time spent discharging patient (in min): 45
-
Pending Results: No
Hospital Course
Mr. Stevens is an 89-year-old male with a medical history of aortic stenosis, CVA, renal cell carcinoma, and recent robotic cholecystectomy 01/11/2025 who presented with nausea and vomiting. During his recent cholecystectomy he was incidentally found
to have omental lesions, the biopsies of which resulted positive for metastatic renal cell carcinoma. His presenting nausea and vomiting appears to have been secondary to small bowel obstruction possibly due to occult malignancy. There was no
evidence for bile leak related to his recent cholecystectomy on HIDA scan. His abdominal discomfort with associated nausea and vomiting progressed. He developed fever, hypotension, and worsening leukocytosis. An NG tube was placed for
decompression with some relief. Ultimately patient made a decision with his family to transition to hospice care. Comfort measures were initiated. He was pronounced at 5 AM on 01/22/2025. Family was present and condolences were offered.
Discharge Plan
-
Patient Disposition:
Date/Time
Date/Time: 01/22/25 05:00
Discharge Date and Time
Discharge Date/Time: 01/22/25 06:30
Print Language: IRISH
== END 2025-01-22 06:30 | disposition expired | DRG 951 ==
LOC: 2 NORTH 13:14
PROVIDERS: ADMITTING PHYSICIAN Internal Medicine
DX: Z51.5 Encounter for palliative care (principal); A41.9 Sepsis, unspecified organism; C64.9 Malignant neoplasm of unspecified kidney, except renal pelvis; Z86.73 Personal history of transient ischemic attack (TIA), and cerebral infarction without residual deficits; Z85.528 Personal history of other malignant neoplasm of kidney